=== PATIENT | male | born 1970 | race Caucasian/White ===

== ENCOUNTER 2019-11-11 10:08 | Outpatient (CLI) | payer OTHER, SELFPAY ==
--- NOTE | ~2019-11-11 | CT_ITS ---
EXAMINATION: CT abdomen pelvis w con INDICATION: Unspecified abdominal pain TECHNIQUE: Computed tomographic images of the abdomen and pelvis were obtained after the administrati on of 100 cc of Omnipaque 350 intravenous contrast. The dose-length product (DLP) was 1667.98 mGy-cm. Automated exposure control and iterative reconstruction technique were employed. COMPARISON: 01/26/2017 FINDINGS: The lung bases are clear. The heart size is normal. The gallbladder is surgically absent. T here is nodularity of the liver surface. The spleen, pancreas, and adrenal glands are normal. There i s a 6 mm nonobstructing stone of the left kidney lower pole. The right kidney is unremarkable. Mild, chronic periportal lymphadenopathy is noted. There is no free intraperitoneal gas or evidence of keegan l obstruction. Colonic diverticulosis is present without evidence of diverticulitis. The appendix is normal. There is moderate lumbar spondylosis. There is a fat-containing umbilical hernia. IMPRESSION: 1. No CT correlate for the patient's symptoms. 2. Cirrhosis. 3. Chronic mild periportal lymphadenopathy, likely reactive. 4. Nonobstructing left nephrolithiasis. Reviewed, dictated and finalized at location B.
[2019-11-11 10:28] LABS: Estimated Glomerular Filt Rate > 60
== END 2019-11-11 10:09 | disposition home or self-care (01) ==
PROVIDERS: PCP Family Medicine; Visit Provider Family Medicine
DX: R10.9 Unspecified abdominal pain (principal); K74.60 Unspecified cirrhosis of liver; R59.0 Localized enlarged lymph nodes; N20.0 Calculus of kidney
CPT/HCPCS: 74177; Q9967

== ENCOUNTER → 2020-07-17 04:01 | Outpatient (CLI) | payer OTHER, SELFPAY ==
[2020-07-17 20:06] LABS: SARS-CoV-2 RNA PCR Negative
== END ==
PROVIDERS: PCP Family Medicine; Visit Provider Internal Medicine Gastroenterology
DX: Z01.812 Encounter for preprocedural laboratory examination (principal); Z20.822 Contact with and (suspected) exposure to COVID-19
CPT/HCPCS: C9803; U0003; U0005

== ENCOUNTER 2020-07-20 01:59 | Day surgery (SDC) | payer OTHER, SELFPAY ==
[2020-07-12 12:08] VITALS: BMI 48.6
[2020-07-20 12:02] VITALS: BP 141/79; PULSE 65; RESP 17; TEMP 36.8; O2SAT 100; BMI 49.4
[2020-07-20] MEDS: LACTATED RINGERS 1,000 ML 150 ML IV CONT (12:16)
--- NOTE | 2020-07-20 12:22 | WPDANESEPPF ---
Anes - Initial Pre Proc Eval Procedure: Operation Date: 07/20/20 13:00 Proposed Procedures p Esophagogastroduodenoscopy - Boris Bennett MD Date/Time: 07/20/20 12:22 Surgeon: Boris Bennett MD Pre Op Diagnosis: cirrhosis Patient Data Age: 49 Gender: M Height: 6 ft 2 in Weight: 174.4 kg Last Vital Signs Temp 98.2 F 07/20/20 12:02 Pulse 65 07/20/20 12:02 Resp 17 07/20/20 12:02 BP 141/79 H 07/20/20 12:02 Pulse Ox 100 07/20/20 12:02 Allergies Allergy/AdvReac Type Severity Reaction Status Date / Time guaifenesin AdvReac Unknown Unknown Verified 07/20/20 12:00 pseudoephedrine AdvReac Unknown Unknown Verified 07/20/20 12:00 Home Medications Medication Instructions Recorded Confirmed Type omeprazole magnesium 20 mg 20 mg PO DAILY 12/02/19 07/20/20 History tablet,delayed release valsartan 320 See Rx Instructions .ROUTE 01/05/20 07/20/20 Rx mg-hydrochlorothiazide 12.5 mg .COMPLEX #90 tablet tablet Patient hx anesthesia problems: none Family hx anesthesia problems: none PMFSH Past Medical History Medical History Abdominal pain Cirrhosis Colon cancer screening Decreased libido Hypertension Lipid screening CRAWLEY (nonalcoholic steatohepatitis) Obesity, morbid, BMI 40.0-49.9 Screening for prostate cancer Thrombocytopenia Family History Family History Father Hypertension Family history of diabetes mellitus in first degree relative Mother Family history of thyroid disease Social History Social History (Updated 05/31/20 @ 09:23 by Spring Demarco CMA) Smoking status: Never smoker Alcohol intake: current Drinks per week: 1 Alcohol use details: socially Substance use: never Living arrangements: with family Spiritual care concerns: No Anes - Eval Final PreProcedure Day of Procedure 07/20/20 12:22 Patient weight: super morbidly obese Heart: regular rate and rhythm Lungs: clear to auscultation Airway: Mallampati scale class III Neurological: alert and oriented Last oral intake: >/= 8 hours ASA classification: IV Emergent: no Anesthetic plan: proceed Anesthesia type and monitoring: general GIVS and standard monitoring Informed Consent: The patient's anesthetic plan and its attendant risks and benefits were discussed with the patient/family/POA. Questions were solicited and answers provided to the satisfaction of the patient/family/POA.
--- NOTE | 2020-07-20 12:45 | PM.HPGS ---
History of Present Illness History of Present Illness Consent: Risks, benefits, and alternatives have been discussed and questions answered. Patient agrees to proceed with procedure. Chief complaint: cirrhosis Narrative: Vinay Chawla is a 49 year old male with crawley cirrhosis, here for egd to assess if EV, PHG, etc Review of Systems Constitutional: Constitutional: Denies headache(s) and Denies weakness Eyes: Eyes: Denies blurry vision ENT: Reports Normal hearing present, Denies headache(s) and Denies neck pain Cardiovascular: Cardiovascular: Denies chest pain and Denies dyspnea Respiratory: Respiratory: Denies dyspnea Gastrointestinal: Gastrointestinal: Reports no additional gastrointestinal complaints Genitourinary: Genitourinary: Denies dysuria Musculoskeletal: Musculoskeletal: Denies neck pain Integumentary/Breasts: Skin/Breast: Denies dry skin Neurologic: Reports Normal hearing present, Denies headache(s) and Denies weakness Psychiatric: Psychiatric: Denies anxiety Endocrine: Endocrine: Denies change in body appearance Hematologic/Lymphatic: Hematologic/Lymphatic: Denies easy bleeding Allergic/Immunologic: Allergic/Immunologic: Denies urticaria [facility] Past Medical History Medical History Abdominal pain Cirrhosis Colon cancer screening Decreased libido Hypertension Lipid screening CRAWLEY (nonalcoholic steatohepatitis) Obesity, morbid, BMI 40.0-49.9 Screening for prostate cancer Thrombocytopenia Family History Family History Father Hypertension Family history of diabetes mellitus in first degree relative Mother Family history of thyroid disease Social History Social History (Updated 05/31/20 @ 09:23 by Spring Demarco CMA) Smoking status: Never smoker Alcohol intake: current Drinks per week: 1 Alcohol use details: socially Substance use: never Living arrangements: with family Spiritual care concerns: No Meds Home Medications and Allergies Home Medications Medication Instructions Recorded Confirmed Type omeprazole magnesium 20 mg 20 mg PO DAILY 12/02/19 07/20/20 History tablet,delayed release valsartan 320 See Rx Instructions .ROUTE 01/05/20 07/20/20 Rx mg-hydrochlorothiazide 12.5 mg .COMPLEX #90 tablet tablet Allergies Allergy/AdvReac Type Severity Reaction Status Date / Time guaifenesin AdvReac Unknown Unknown Verified 07/20/20 12:00 pseudoephedrine AdvReac Unknown Unknown Verified 07/20/20 12:00 Vital Signs Vital Signs - 24 hr 07/20/20 12:02 Temperature 98.2 F Pulse Rate 65 Respiratory Rate 17 Blood Pressure 141/79 H Pulse Oximetry 100 Exam Const: General: comfortable and no acute distress HENMT: General nose exam: Normal nares present Eyes: General: appearance normal, both eyes and all related structures Neck: Neck: no JVD Resp: Auscultation: clear to auscultation bilaterally Cardio: Rate: regular rate Rhythm: regular rhythm GI: Inspection: non-distended GI Palp: Yes Soft to palpation Skin: General skin exam: normal color Neuro: General: gait normal Speech: normal speech Extrem: General: normal to inspection Psych: Mental Status: mental status grossly normal Assessment and Plan Assessment and plan (1) Cirrhosis: Qualifiers: Hepatic cirrhosis type: unspecified hepatic cirrhosis Ascites presence: without ascites Qualified Code(s): K74.60 - Unspecified cirrhosis of liver Code(s): K74.60 - Unspecified cirrhosis of liver Status: Acute Assessment and Plan: egd (2) CRAWLEY (nonalcoholic steatohepatitis): Code(s): K75.81 - Nonalcoholic steatohepatitis (CRAWLEY) Status: Acute
[2020-07-20 12:56] VITALS: BP 93/56; PULSE 63; RESP 15; O2SAT 97
[2020-07-20 13:06] VITALS: BP 117/60; PULSE 65; RESP 17; O2SAT 98
[2020-07-20 13:16] VITALS: BP 119/51; PULSE 66; RESP 18; O2SAT 95
== END 2020-07-20 13:33 | disposition home or self-care (01) ==
PROVIDERS: PCP Family Medicine; Visit Provider Internal Medicine Gastroenterology
PROC: 0DJ08ZZ Inspection of Upper Intestinal Tract, Via Natural or Artificial Opening Endoscopic (ICD-10-PCS; CPT 43235; principal; 2020-07-20 13:00)
DX: K74.60 Unspecified cirrhosis of liver (principal); I85.10 Secondary esophageal varices without bleeding; I10 Essential (primary) hypertension; K75.81 Nonalcoholic steatohepatitis (NASH); E66.01 Morbid (severe) obesity due to excess calories; Z68.42 Body mass index [BMI] 45.0-49.9, adult
CPT/HCPCS: 43235; C9803; J2001; J2704; J7120; U0003; U0005

== ENCOUNTER 2020-07-21 09:14 | Emergency (ER) | payer OTHER, SELFPAY ==
--- NOTE | ~2020-07-21 | CT_ITS ---
EXAMINATION: CTA BRAIN/CAROTID DATE: 07/21/2020 11:01 INDICATION: Dizziness and right arm tingling TECHNIQUE: Computed tomographic angiography (CTA) of the head and neck was performed with 100 mL Omni paque-350 intravenous contrast. Multiplanar reconstructions and maximum intensity projection 3D-recon structions of the carotid arteries and of the intracranial arteries were created by the technologist on a separate workstation. Precontrast CT of the head was also obtained. Automated exposure control and iterative reconstruction technique were employed.The dose-length product was 1853.32 mGy-cm. COMPARISON: None. FINDINGS: Carotid arteries: There is 0% stenosis of the right carotid bulb relative to normal distal artery lumen diameter (NASCE T criteria). There is 0% stenosis of the left carotid bulb relative to normal distal artery lumen baldo meter. Cervical soft tissues are unremarkable. Visualized apices of lungs are clear. Cervical spine i s unremarkable. Head: No acute intracranial hemorrhage, acute infarction or abnormal extra axial fluid collection. Ventricl es are normal and symmetric. No mass/mass effect. The orbits, paranasal sinuses and mastoid air cells are normal. No abnormally enhancing brain lesions. Intracranial arteries There is no hemodynamically significant stenosis in the vertebral, basilar and internal carotid arter ies. Vertebral arteries are codominant. There are no aneurysms identified. The left A1 segment is pat ent. No definite patent right A1 segment with flow to the right anterior cerebral artery supplied via the left A1 segment and a patent anterior communicating artery. Both P1 segments are patent. The rig ht P1 segment is smaller than the left with collateral supply to the right posterior cerebral artery also supplied via a patent right posterior communicating artery. Cerebral arterial arborization appea rs symmetric. IMPRESSION: 1. 0% stenosis of the right carotid bulb relative to normal distal artery lumen diameter (NASCET crit eria). 2. 0% stenosis of the left carotid bulb relative to normal distal artery lumen diameter. 3. Normal variation to the [place] of [place] with no aneurysm or hemodynamically significant stenosis to the intracranial cerebral arteries. Reviewed, dictated and finalized at location A. IMPRESSION: 1. 0% stenosis of the right carotid bulb relative to normal distal artery lumen diameter (NASCET criteria). 2. 0% stenosis of the left carotid bulb relative to normal distal artery lumen diameter. 3. Normal variation to the [place] with no aneurysm or hemodynamically significant stenosis to the intracranial cerebral arteries.
[2020-07-21 09:19] VITALS: BP 167/86; PULSE 75; RESP 20; TEMP 36.6; O2SAT 99
--- NOTE | 2020-07-21 09:27 | ECG_ITS ---
Measurements Intervals [place] Rate: 65 P: 8 IA: 201 QRS: 28 QRSD: 111 T: 64 QT: 437 QTc: 455 Interpretive Statements SINUS RHYTHM INTRAVENTRICULAR CONDUCTION DELAY BORDERLINE ST-T WAVE ABNORMALITY- HIGH LATERAL LEADS BASELINE ARTIFACT- II, III, AVR, AVF, V2-V6 BORDERLINE ECG Electronically Signed On 07-21-2020 12:06:10 CDT by Wood Larkin D.O.
[2020-07-21 10:00] LABS: Basophils Absolute Auto 0.1 K/mm3 (0.0-0.1); Eosinophils Absolute Auto 0.2 K/mm3 (0-0.3); Eosinophils Percent Auto 2.6 % (0-4.4); Hematocrit 43.4 % (42.0-52.0); Hemoglobin 15.2 g/dL (14.0-18.0); Immature Granulocyte Absolute 0.02 K/mm3 (0.00-0.031); Immature Granulocyte Percent A 0.3 % (0-0.5); Lymphocytes Absolute Auto 1.58 K/mm3 (0.9-3.2); Lymphocytes Percent Auto 23.2 % (18.3-44.2); Mean Corpuscular Volume 97.1 fl (80-100); Mean Platelet Volume 12.2 fl (7.4-10.4); Monocytes Absolute Auto 1.1 K/mm3 (0.1-0.6); Monocytes Percent Auto 16.1 % (2.6-8.5); Neutrophils Absolute Auto 3.9 K/mm3 (1.3-6.7); Neutrophils Percent Auto 56.8 % (45.5-73.1); Platelet Count Result 109 k/mm3 (150-375); Red Blood Count 4.47 M/mm3 (4.6-6.20); Red Cell Distribution Width 13.6 % (11.5-14.5); White Blood Count 6.8 K/mm3 (4.5-10.0)
--- NOTE | 2020-07-21 10:05 | PC.NURSE ---
Pt resting on cart, non-labored respirations, c/o charley horse pain in L calf this am (denies trauma, denies hx blood clots), then when he stood up felt unsteady and dizzy, denies N/V, denies falls, denies hx vertigo. Also reports RUE numbness improved. BLE soft to touch and appear equal in size, pt is wearing compression stockings
[2020-07-21 10:09] LABS: Anion Gap 5 mmol/L (8-16); Blood Urea Nitrogen 12 mg/dL (9-20); Calcium 9.2 mg/dL (8.4-10.2); Carbon Dioxide 28 mmol/L (22-30); Chloride 105 mmol/L (98-107); Estimated CRCL calculation 184 ml/min; Estimated Glomerular Filt Rate > 60; Glucose 105 mg/dL (75-110); Potassium 3.4 mmol/L (3.4-5.0); Sodium 138 mmol/L (137-145)
[2020-07-21 11:02] LABS: Alanine Aminotransferase 44 U/L (4-50); Albumin Level 3.9 g/dL (3.5-5.1); Alkaline Phosphatase 80 U/L (38-126); Aspartate Amino Transferase 53 U/L (17-59); Bilirubin,Total 0.9 mg/dL (0.2-1.3); Lipase 197 U/L (23-300)
[2020-07-21] MEDS: SODIUM CHLORIDE 0.9% IV 1,000 ML 999 ML IV CONT (11:05)
[2020-07-21] MEDS: MECLIZINE HCL 25 MG TABLET PO (11:06)
[2020-07-21] MEDS: FAMOTIDINE 20 MG/2 ML VIAL IV PUSH (11:06)
[2020-07-21 11:07] VITALS: BP 168/89; PULSE 70; RESP 18; O2SAT 97
--- NOTE | 2020-07-21 12:09 | PC.NURSE ---
Pt tolerated ROAD test, ambulated steady gait, denies dizziness/pain/N/V.
--- NOTE | 2020-07-21 12:24 | ED.GENADULT ---
HPI - General Adult General Chief complaint: Dizziness Stated complaint: dizzy, tingling right arm Time Seen by Provider: 07/21/20 10:04 Source: patient and RN notes reviewed Mode of arrival: ambulatory Limitations: no limitations History of Present Illness HPI narrative: Patient is a 49-year-old male who presents with dizziness that occurred this morning upon waking that occurs with his sitting and standing and resolves with lying flat in position patient denies any similar occurrence in the past injury or trauma noted some tingling in the right arm. Patient presents in no distress has not taken anything for his symptoms. Patient did have endoscopic he for esophageal varices given he has history of fatty liver and is developing cirrhosis. Patient denies URI symptoms Related Data Home Medications Medication Instructions Recorded Confirmed omeprazole magnesium 20 mg 20 mg PO DAILY 12/02/19 07/20/20 tablet,delayed release Allergies Allergy/AdvReac Type Severity Reaction Status Date / Time guaifenesin AdvReac Unknown Unknown Verified 07/20/20 12:00 pseudoephedrine AdvReac Unknown Unknown Verified 07/20/20 12:00 Review of Systems Review of Systems: All systems reviewed & are unremarkable except as noted in HPI and below PMFSH Past Medical History Medical History Abdominal pain Cirrhosis Colon cancer screening Decreased libido Hypertension Lipid screening CRAWLEY (nonalcoholic steatohepatitis) Obesity, morbid, BMI 40.0-49.9 Screening for prostate cancer Thrombocytopenia Family History Family History Father Hypertension Family history of diabetes mellitus in first degree relative Mother Family history of thyroid disease Social History Social History Smoking status: Never smoker Alcohol intake: current Drinks per week: 1 Substance use: never Spiritual care concerns: No Exam Narrative: Exam Narrative: GENERAL: Well-appearing, obese, and in no acute distress. HEAD: Normocephalic, atraumatic. EYES: PERRLA and EOMI. ENT: Nares clear, no rhinorrhea or epistaxis. Mucous membranes moist. NECK: Supple. No adenopathy or masses. No carotid bruits or JVD CHEST: Clear to auscultation. No respiratory distress. No wheezes rales or rhonchi HEART: Regular rate and rhythm. No murmur heard. Normal peripheral pulses. ABDOMEN: Soft, nontender, nondistended EXTREMITIES: Normal range of motion. No edema. SKIN: Warm, dry, no rash. NEURO: No focal deficits. Alert and oriented x3. Cranial nerves II through XII grossly intact. Cerebellar intact. Normal speech normal gait. No pronator drift. Motor and sensory intact and symmetrical in the extremities. No facial asymmetry. 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 Course Course Emergency Course: Patient in the room no distress his symptoms have resolved at this time resting comfortably will be discharged home with outpatient follow-up is felt appropriate for outpatient reevaluation ABCs and vital signs intact and stable Vital Signs Vital signs: Vital Signs Temperature 97.8 F 07/21/20 09:19 Pulse Rate 75 07/21/20 09:19 Respiratory Rate 20 07/21/20 09:19 Blood Pressure 167/86 H 07/21/20 09:19 Pulse Oximetry 99 07/21/20 09:19 Temperature 97.8 F 07/21/20 09:19 Pulse Rate 70 07/21/20 11:07 Respiratory Rate 18 07/21/20 11:07 Blood Pressure 168/89 H 07/21/20 11:07 Pulse Oximetry 97 07/21/20 11:07 Medical Decision Making MDM Narrative Medical decision making narrative: Patients headache was not sudden or maximal in onset. There are o focal neurological deficits on exam. Subarachnoid hemorrhage is felt to be unlikey at this time. There is no history of fever, and neck is supple without meningismus, making meningitis unlikely. No traumatic history or signs o
[2020-07-21 12:26] VITALS: BP 150/79; PULSE 68; RESP 20; O2SAT 98
== END 2020-07-21 12:30 | disposition home or self-care (01) ==
PROVIDERS: Emergency Medicine Emergency Medical Services; Emergency Provider Emergency Medicine; PCP Family Medicine
DX: R42 Dizziness and giddiness (principal); K74.60 Unspecified cirrhosis of liver; I10 Essential (primary) hypertension; K75.81 Nonalcoholic steatohepatitis (NASH); E66.01 Morbid (severe) obesity due to excess calories; Z68.42 Body mass index [BMI] 45.0-49.9, adult; I45.9 Conduction disorder, unspecified; R94.31 Abnormal electrocardiogram [ECG] [EKG]
CPT/HCPCS: 36415; 70496; 70498; 80048; 80076; 83690; 85025; 93005; 96361; 96374; 99284; A9270; J7030; Q9967

== ENCOUNTER → 2021-01-01 10:46 | Outpatient (CLI) | payer OTHER, SELFPAY ==
--- NOTE | ~2021-01-01 | US_ITS ---
EXAMINATION: US right upper quadrant DATE: 01/01/2021 11:14 INDICATION: Unspecified cirrhosis of the liver TECHNIQUE: Multiple grayscale and Doppler ultrasound images of the abdomen were obtained. COMPARISON: 06/08/2015 FINDINGS: The head and body of the pancreas are normal. The pancreatic tail is obscured by bowel gas. The liver demonstrates increased echogenicity, heterogenous echotexture, and decreased through trans mission. There is mild surface nodularity of the liver. Normal hepatopetal flow in the main portal ve in. The gallbladder is surgically absent. The normal common bile duct measures 4 mm. There was no son ographic Healy sign. IMPRESSION: 1. Mild surface nodularity of the liver, consistent with cirrhosis. Reviewed, dictated and finalized at location B.
== END ==
PROVIDERS: PCP Family Medicine; Visit Provider Internal Medicine Gastroenterology
DX: K74.60 Unspecified cirrhosis of liver (principal)
CPT/HCPCS: 76705

== ENCOUNTER → 2021-02-01 02:05 | Outpatient (CLI) | payer OTHER, SELFPAY ==
[2021-02-01 17:54] LABS: SARS-CoV-2 RNA PCR Negative
== END ==
PROVIDERS: PCP Family Medicine; Visit Provider Physician Assistant Medical
DX: R09.89 Other specified symptoms and signs involving the circulatory and respiratory systems (principal); Z20.822 Contact with and (suspected) exposure to COVID-19
CPT/HCPCS: C9803; U0003; U0005

== ENCOUNTER → 2021-06-13 07:50 | Outpatient (CLI) | payer OTHER, SELFPAY ==
--- NOTE | ~2021-06-13 | US_ITS ---
EXAMINATION: US right upper quadrant DATE: 06/13/2021 08:20 INDICATION: Unspecified cirrhosis of liver. TECHNIQUE: Multiple grayscale and Doppler ultrasound images of the abdomen were obtained. COMPARISON: CT abdomen and pelvis 11/11/2019, abdomen ultrasound 01/01/2021 FINDINGS: The visualized portions of the head and body of the pancreas are normal. The liver demonstr ates coarsened echotexture and surface nodularity, consistent with cirrhosis. There is normal flow in main portal vein. The gallbladder is absent. The common duct is normal and measures 4 mm. IMPRESSION: 1. Cirrhosis of the liver. Reviewed, dictated and finalized at location A. IMPRESSION: 1. Cirrhosis of the liver.
== END ==
PROVIDERS: PCP Family Medicine; Visit Provider Internal Medicine Gastroenterology
DX: K74.60 Unspecified cirrhosis of liver (principal)
CPT/HCPCS: 76705

== ENCOUNTER → 2021-06-13 07:52 | Outpatient (CLI) | payer OTHER, SELFPAY ==
--- NOTE | ~2021-06-13 | CT_ITS ---
EXAMINATION: CT abdomen pelvis w con EXAM DATE: 06/13/2021 08:39 INDICATION: R10.84 - Generalized abdominal pain . TECHNIQUE: Spiral CT of the abdomen and pelvis was performed following intravenous injection of 100 m L Omnipaque 350. Axial, coronal and sagittal images of the abdomen and pelvis were reviewed. The do se-length product (DLP) for this examination was 1287.81 mGy-cm. The exposure was tailored according to patient size (auto mA exposure control), and iterative reconstruction (ASIR) was used as addition al dose reduction technique. Comparison is made to prior examination from 11/11/2019. FINDINGS: There is a lymph node at the root of the mesentery measuring 2.6 x 2.2 cm, appears unchange d and therefore probably reactive. Liver has mildly nodular contour, probable cirrhosis. Portal vein is normal in size. Spleen is mildly enlarged in craniocaudal dimension at 15 cm. Adrenal glands and pancreas are unremarkable. Gallbladder is unremarkable. No biliary obstruction. Portal and splenic veins are patent. Kidneys enhance symmetrically. There is no hydronephrosis. There is a 3 mm left inferior calyceal stone. The prostate is unremarkable. The bladder is unremarkable. No pelvic lymp hadenopathy. There is mild scattered arteriosclerotic disease. There are no findings to suggest appendicitis. There is mild sigmoid colonic diverticulosis. There i s no adjacent inflammatory change to suggest diverticulitis. The stomach and small bowel are unrem arkable. There is expected amount of colonic stool. No free intraperitoneal gas. The heart is no rmal in size. There are no pericardial or pleural effusions. The lung bases are unremarkable. Ther e are no osteoblastic or osteolytic lesions identified. Moderate to severe lower lumbar spondylosis. IMPRESSION: 1. Mildly nodular liver contour, mild splenomegaly. Possible cirrhosis. 2. Stable enlarged mesenteric root lymph node likely reactive. 3. Left inferior calyceal stone. 4. No acute findings. Reviewed, dictated and finalized at location B.
[2021-06-13 08:27] LABS: Estimated Glomerular Filt Rate > 60
== END ==
PROVIDERS: PCP Family Medicine; Visit Provider Family Medicine
DX: R10.84 Generalized abdominal pain (principal); I25.10 Atherosclerotic heart disease of native coronary artery without angina pectoris; K75.81 Nonalcoholic steatohepatitis (NASH); N20.0 Calculus of kidney
CPT/HCPCS: 74177; Q9967

== ENCOUNTER 2021-08-23 00:39 | Day surgery (SDC) | payer OTHER, SELFPAY ==
[2021-08-12 14:35] VITALS: BMI 49.5
--- NOTE | 2021-08-22 12:42 | WPDANESEPPF ---
Anes - Initial Pre Proc Eval Procedure: Operation Date: 08/23/21 11:30 Proposed Procedures p Esophagogastroduodenoscopy & Screening Colonoscopy - Boris Bennett MD Date/Time: 08/22/21 12:42 Surgeon: Boris Bennett MD Pre Op Diagnosis: esophag. varices,epigastric pain,neoplasm screen Patient Data Age: 50 Gender: M Height: 1.88 m Weight: 175 kg Allergies Allergy/AdvReac Type Severity Reaction Status Date / Time guaifenesin AdvReac Unknown Unknown Verified 08/23/21 10:47 pseudoephedrine AdvReac Unknown Unknown Verified 08/23/21 10:47 Home Medications Medication Instructions Recorded Confirmed Type omeprazole magnesium 20 mg 20 mg PO DAILY 12/02/19 08/23/21 History tablet,delayed release (Prilosec OTC) propranolol 10 mg tablet 10 mg PO Q12H #60 tabs 12/13/20 08/23/21 Rx valsartan 320 See Rx Instructions .Route 12/31/20 08/23/21 Rx mg-hydrochlorothiazide 12.5 mg .COMPLEX #90 tabs tablet Patient hx anesthesia problems: none Family hx anesthesia problems: none Results Review: All pre-operative results and documents have been reviewed as part of the pre-operative evaluation. [facility] Past Medical History Medical History (Updated 08/22/21 @ 12:42 by Martin Trinh DO) Abdominal pain ADD (attention deficit disorder) BMI 50.0-59.9, adult Cirrhosis Colon cancer screening Decreased libido Epigastric pain Esophageal varices Hypertension Lipid screening CRAWLEY (nonalcoholic steatohepatitis) Obesity, morbid, BMI 40.0-49.9 SAIGE (obstructive sleep apnea) Screening for prostate cancer Thrombocytopenia Family History Family History Father Hypertension Family history of diabetes mellitus in first degree relative Mother Family history of thyroid disease Social History Social History Alcohol intake: current Drinks per week: 1 Alcohol use details: socially Substance use: never Living arrangements: with family Spiritual care concerns: No Anes - Eval Final PreProcedure Day of Procedure 08/22/21 12:42 Patient weight: morbidly obese Heart: regular rate and rhythm Lungs: clear to auscultation Airway: Mallampati scale class II Neurological: alert and oriented Last oral intake: >/= 8 hours ASA classification: IV Emergent: no Anesthetic plan: proceed Anesthesia type and monitoring: general GIVS and standard monitoring Results Review: All pre-operative results and documents have been reviewed as part of the pre-operative evaluation. Informed Consent: The patient's anesthetic plan and its attendant risks and benefits were discussed with the patient/family/POA. Questions were solicited and answers provided to the satisfaction of the patient/family/POA.
[2021-08-23 10:48] VITALS: BP 169/87; PULSE 81; RESP 18; TEMP 36.6; O2SAT 97; BMI 52.0
[2021-08-23] MEDS: LACTATED RINGERS 1,000 ML 150 ML IV CONT (11:05)
--- NOTE | 2021-08-23 11:20 | PM.HPGS ---
History of Present Illness History of Present Illness Consent: Risks, benefits, and alternatives have been discussed and questions answered. Patient agrees to proceed with procedure. Chief complaint: esophag. varices,epigastric pain,neoplasm screen Narrative: Vinay Chawla is a 50 year old male here for egd and colonoscopy, diagnosed with CRAWLEY cirrhosis, last EGD 2020 showed small EV now using low dose propranolol. His last colonoscopy 2015 only hemorrhoids. He has been having intermittent epigastric pain for last few months, CT scan a/p because severe pain, only showed cirrhosis and mild splenomegaly. He is taking omeprazole daily, using peptobismol as needed that will help. Review of Systems Constitutional: Constitutional: Denies headache(s) and Denies weakness Eyes: Eyes: Denies blurry vision ENT: Reports Normal hearing present, Denies headache(s) and Denies neck pain Cardiovascular: Cardiovascular: Denies chest pain and Denies dyspnea Respiratory: Respiratory: Denies dyspnea Gastrointestinal: Gastrointestinal: Reports no additional gastrointestinal complaints Genitourinary: Genitourinary: Denies dysuria Musculoskeletal: Musculoskeletal: Denies neck pain Integumentary/Breasts: Skin/Breast: Denies dry skin Neurologic: Reports Normal hearing present, Denies headache(s) and Denies weakness Psychiatric: Psychiatric: Denies anxiety Endocrine: Endocrine: Denies change in body appearance Hematologic/Lymphatic: Hematologic/Lymphatic: Denies easy bleeding Allergic/Immunologic: Allergic/Immunologic: Denies urticaria PMFSH Past Medical History Medical History (Updated 08/22/21 @ 12:42 by Martin Trinh DO) Abdominal pain ADD (attention deficit disorder) BMI 50.0-59.9, adult Cirrhosis Colon cancer screening Decreased libido Epigastric pain Esophageal varices Hypertension Lipid screening CRAWLEY (nonalcoholic steatohepatitis) Obesity, morbid, BMI 40.0-49.9 SAIGE (obstructive sleep apnea) Screening for prostate cancer Thrombocytopenia Family History Family History Father Hypertension Family history of diabetes mellitus in first degree relative Mother Family history of thyroid disease Social History Social History Alcohol intake: current Drinks per week: 1 Alcohol use details: socially Substance use: never Living arrangements: with family Spiritual care concerns: No Meds Home Medications and Allergies Home Medications Medication Instructions Recorded Confirmed Type omeprazole magnesium 20 mg 20 mg PO DAILY 12/02/19 08/23/21 History tablet,delayed release (Prilosec OTC) propranolol 10 mg tablet 10 mg PO Q12H #60 tabs 12/13/20 08/23/21 Rx valsartan 320 See Rx Instructions .Route 12/31/20 08/23/21 Rx mg-hydrochlorothiazide 12.5 mg .COMPLEX #90 tabs tablet Allergies Allergy/AdvReac Type Severity Reaction Status Date / Time guaifenesin AdvReac Unknown Unknown Verified 08/23/21 10:47 pseudoephedrine AdvReac Unknown Unknown Verified 08/23/21 10:47 Vital Signs Vital Signs - 24 hr 08/23/21 10:48 Temperature 98 F Pulse Rate 81 Respiratory Rate 18 Blood Pressure 169/87 H Pulse Oximetry 97 Oxygen Delivery Room Air Exam Const: General: comfortable and no acute distress HENMT: General nose exam: Normal nares present Eyes: General: appearance normal, both eyes and all related structures Neck: Neck: no JVD Resp: Auscultation: clear to auscultation bilaterally Cardio: Rate: regular rate Rhythm: regular rhythm GI: Inspection: non-distended GI Palp: Yes Soft to palpation Skin: General skin exam: normal color Neuro: General: gait normal Speech: normal speech Extrem: General: normal to inspection Psych: Mental Status: mental status grossly normal Assessment and Plan Assessment and plan (1) Epigastric pain:
--- NOTE | 2021-08-23 11:39 | SUR.OPER ---
EGD start 1130 end 1134, COLON start 1139 end 1150.
[2021-08-23 11:54] VITALS: BP 117/68; PULSE 72; RESP 22; O2SAT 98
[2021-08-23 12:04] VITALS: BP 126/84; PULSE 71; RESP 20; O2SAT 98
[2021-08-23 12:14] VITALS: BP 150/98; PULSE 70; RESP 20; O2SAT 98
== END 2021-08-23 12:31 | disposition home or self-care (01) ==
PROVIDERS: PCP Family Medicine; Visit Provider Internal Medicine Gastroenterology
PROC: 0DJ08ZZ Inspection of Upper Intestinal Tract, Via Natural or Artificial Opening Endoscopic (ICD-10-PCS; CPT 43235; principal; 2021-08-23 11:30)
DX: Z12.11 Encounter for screening for malignant neoplasm of colon (principal); D12.2 Benign neoplasm of ascending colon; K57.30 Diverticulosis of large intestine without perforation or abscess without bleeding; I85.10 Secondary esophageal varices without bleeding; K29.50 Unspecified chronic gastritis without bleeding; I10 Essential (primary) hypertension; K75.81 Nonalcoholic steatohepatitis (NASH); G47.33 Obstructive sleep apnea (adult) (pediatric); E66.01 Morbid (severe) obesity due to excess calories; Z68.43 Body mass index [BMI] 50.0-59.9, adult
CPT/HCPCS: 45385; 43239; 88305; J2704; J7120

== ENCOUNTER → 2021-11-19 08:03 | Outpatient (CLI) | payer OTHER, SELFPAY ==
--- NOTE | ~2021-11-19 | US_ITS ---
US right upper quadrant DATE: 11/19/2021 08:21 INDICATION: Cirrhosis. Status post cholecystectomy. TECHNIQUE: Real-time imaging of right upper quadrant, Doppler analysis COMPARISON: 06/13/2021 CT abdomen FINDINGS: There is surface nodularity of the liver consistent with cirrhosis. No apparent hepatic spa ce-occupying mass lesion is noted. The portal vein is patent, with normal directional flow. Status post cholecystectomy. The common bile duct measures 7 mm, within normal range. There is limited visualization of the pancreas due to interference from overlying bowel gas. IMPRESSION: Cirrhosis Status post cholecystectomy Suboptimal visualization of the pancreas Reviewed, dictated and finalized at [facility]. Reviewed, dictated and finalized at location B.
== END ==
PROVIDERS: PCP Internal Medicine Gastroenterology; Visit Provider Internal Medicine Gastroenterology
DX: K74.60 Unspecified cirrhosis of liver (principal); Z90.49 Acquired absence of other specified parts of digestive tract
CPT/HCPCS: 76705

== ENCOUNTER → 2022-06-09 08:09 | Outpatient (CLI) | payer OTHER, SELFPAY ==
--- NOTE | ~2022-06-09 | US_ITS ---
US right upper quadrant INDICATION: Fatty infiltration of the liver PROCEDURE: Realtime right upper abdominal ultrasound. COMPARISON: No prior studies for comparison. FINDINGS: The pancreas is normal without focal mass or pancreatic ductal dilation. Liver echotexture is increased, consistent with fatty infiltration. There is normal directional flow in the portal ve in. The gallbladder is normal without stones, gallbladder wall thickening or pericholecystic fluid. Comm on bile duct measures 4 mm. No sonographic Healy's sign. IMPRESSION: 1: Hepatic steatosis. Reviewed, dictated and finalized at location B. IMPRESSION: 1: Hepatic steatosis.
== END ==
PROVIDERS: PCP Family Medicine; Visit Provider Internal Medicine Gastroenterology
DX: K75.81 Nonalcoholic steatohepatitis (NASH) (principal)
CPT/HCPCS: 76705

== ENCOUNTER 2022-07-16 05:50 | Emergency (ER) | payer OTHER, SELFPAY ==
[2022-07-16] VITALS (18 sets, daily range): BP systolic 127–197; BP diastolic 85–156; PULSE 83–126; RESP 17–24; TEMP 36.9; O2SAT 92–98
--- NOTE | ~2022-07-16 | XR_ITS ---
EXAMINATION: XR knee LT 3V DATE: 07/16/2022 07:28 INDICATION: Left knee pain and swelling. TECHNIQUE: 3 views of left knee were obtained. COMPARISON: None. FINDINGS: Bone alignment is normal. No fracture. There is moderate osteoarthritis of medial and mata lofemoral compartments and mild osteoarthritis of lateral compartment. There is a small knee joint ef fusion. IMPRESSION: 1. Moderate left knee osteoarthritis. 2. Small left knee joint effusion. Reviewed, dictated and finalized at location A.
--- NOTE | ~2022-07-16 | US_ITS ---
Duplex Sonography of the left extremity: Indication: Pain Findings: Sagittal and transverse B-mode images as well as color-flow imaging were performed on the l eft femoral and popliteal veins. B-mode examination was done without and with compression in the tra nsverse plane. There is good visualization of the common femoral, proximal profunda femoral, superfi cial femoral, greater saphenous, and popliteal veins. Normal flow was seen on color-flow imaging. No rmal compressibility was demonstrated. Visualized left calf veins are also patent. Impression: No evidence of deep vein thrombosis involving the left lower extremity. Reviewed, dictated and finalized at location M. Impression: No evidence of deep vein thrombosis involving the left lower extremity.
--- NOTE | 2022-07-16 06:10 | PC.NURSE ---
Patient states that sitting on the bed with feet on floor is the best position for comfort.
--- NOTE | 2022-07-16 06:21 | ECG_ITS ---
Measurements Intervals [place] Rate: 95 P: [place]: 0 QRS: 30 QRSD: 96 T: 59 QT: 366 QTc: 461 Interpretive Statements ATRIAL FIBRILLATION BORDERLINE R WAVE PROGRESSION, ANTERIOR LEADS BORDERLINE ST-T WAVE ABNORMALITY- HIGH LATERAL LEADS BASELINE ARTIFACT- I, II, III, AVR, AVL, AVF ABNORMAL ECG COMPARED TO ECG 07/21/2020 09:32:53 ATRIAL FIBRILLATION NOW PRESENT Electronically Signed On 07-16-2022 6:46:26 CDT by Wood Larkin D.O.
--- NOTE | 2022-07-16 06:41 | PC.NURSE ---
Patient's heart rate was showing fluctuation from 80bpm to 140bpm and blood pressure was elevated. The patients skin also appears moist to diaphoretic. An EKG was done. Dr. Alejandra notified.
--- NOTE | 2022-07-16 07:15 | ED.LOWEXIN ---
HPI - Extremity Injury (Lower) General Chief Complaint: Extremity Injury, Lower Stated Complaint: LLE pain Time Seen by Provider: 07/16/22 06:03 History of Present Illness HPI Narrative: Pt presents with onset of left knee and posterior thigh pain for a couple of days. Pt denies injury. 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 Pt has never had anything like this before. Pt denies CP or SOB. Related Data Home Medications Medication Instructions Recorded Confirmed omeprazole magnesium 20 mg 20 mg PO DAILY 12/02/19 12/12/21 tablet,delayed release (Prilosec OTC) Allergies Allergy/AdvReac Type Severity Reaction Status Date / Time guaifenesin AdvReac Unknown Unknown Verified 06/26/22 08:33 pseudoephedrine AdvReac Unknown Unknown Verified 06/26/22 08:33 Review of Systems Review of Systems: All systems reviewed & are unremarkable except as noted in HPI and below PMFSH Past Medical History Medical History Abdominal pain ADD (attention deficit disorder) Adenomatous colon polyp BMI 50.0-59.9, adult Cirrhosis Colon cancer screening Decreased libido Epigastric pain Esophageal varices GERD (gastroesophageal reflux disease) Hypertension Lipid screening CRAWLEY (nonalcoholic steatohepatitis) Obesity, morbid, BMI 40.0-49.9 SAIGE (obstructive sleep apnea) Screening for prostate cancer Thrombocytopenia Family History Family History Father Hypertension Family history of diabetes mellitus in first degree relative Mother Family history of thyroid disease Social History Social History Smoking status: Never smoker Alcohol intake: current Drinks per week: 1 Alcohol use details: socially Substance use: never Living arrangements: with family Spiritual care concerns: No Exam Const: General: no acute distress Nutritional Appearance: well nourished Orientation/consciousness: patient oriented x3 Limitations: no limitations Eyes: Conjunctivae: conjunctivae normal EOM: EOMs intact bilaterally Direct Ophthalmoscopy: no photophobia Neck: Neck: normal visual inspection, no lymphadenopathy and no meningeal signs Resp: Effort & Inspection: normal respiratory effort Auscultation: clear to auscultation bilaterally Cardio: Rate: regular rate Rhythm: regular rhythm GI: GI Palp: Yes Soft to palpation Auscultation: normal bowel sounds Skin: General skin exam: normal color Wounds: no wounds Neuro: General: patient oriented x3, moves all extremities, no focal motor deficits and CN's II-XI intact bilaterally Cranial nerves: Yes Nystagmus not present Speech: normal speech Extrem: Other: tender posterior knee on left and into posterior thigh. no significant effusion or erythema to joint. Psych: Mental Status: mental status grossly normal Affect: normal affect Attitude: cooperative Course Vital Signs Vital signs: Vital Signs Temperature 98.5 F 07/16/22 05:54 Pulse Rate 83 07/16/22 05:54 Respiratory Rate 18 07/16/22 05:54 Blood Pressure 158/114 H 07/16/22 05:54 Pulse Oximetry 98 07/16/22 05:54 Oxygen Delivery Room Air 07/16/22 05:54 Temperature 98.5 F 07/16/22 05:54 Pulse Rate 95 07/16/22 08:11 Respiratory Rate 20 07/16/22 08:11 Blood Pressure 147/88 H 07/16/22 08:17 Pulse Oximetry 97 07/16/22 08:16 Oxygen Delivery Room Air 07/16/22 06:06 MDM - Extremity Injury (Lower) MDM Narrative Medical decision making narrative: Pt has non traumatic posterior left knee pain for a couple of days. Could certainly be a dvt so will need venous doppler. internal derangement possible though no injury history. Could be arthritis given pt size but seems unlikely given severity and acuity but will get x ray and give some pain medicine while await
[2022-07-16] MEDS: HYDROcodone/acetaminophen (*CRX) 5-325 MG TABLET 1 TAB PO (07:18)
== END 2022-07-16 08:22 | disposition home or self-care (01) ==
PROVIDERS: Emergency Provider Emergency Medicine; PCP Family Medicine
DX: M25.562 Pain in left knee (principal); I10 Essential (primary) hypertension
CPT/HCPCS: 73562; 93005; 93971; 99284; A9270

== ENCOUNTER 2022-12-14 06:15 | Inpatient (IN) | payer OTHER, SELFPAY ==
[2022-12-14] VITALS (51 sets, daily range): BP systolic 87–154; BP diastolic 46–120; PULSE 47–125; RESP 12–31; TEMP 36.1–36.9; O2SAT 96–100; BMI 49.7
--- NOTE | ~2022-12-14 | XR_ITS ---
Portable chest x-ray Comparison: 12/14/2022 Clinical History: Infiltrate Findings: There is hazy bilateral airspace disease with relative central distribution, most compatib le with moderate pulmonary edema. Probable minimal left pleural effusion. Cardiomediastinal silhouet te is stable. Bones and soft tissues are unremarkable. Impression: Moderate pulmonary edema pattern with minimal left pleural effusion. Correlate clinically for infecti on. Reviewed, dictated and finalized at [facility]. Impression: Moderate pulmonary edema pattern with minimal left pleural effusion. Correlate clinically for infection.
--- NOTE | ~2022-12-14 | XR_ITS ---
EXAMINATION: XR chest 1V portable DATE: 12/14/2022 06:43 INDICATION: Shortness of breath. Chest pain. TECHNIQUE: A single frontal view of the chest was obtained. COMPARISON: Chest 2 views 03/05/2014, CT abdomen and pelvis 06/13/2021 FINDINGS: The lung volumes are small. There are airspace opacities in all lung zones bilaterally. No pleural effusion or pneumothorax. The heart size is normal. IMPRESSION: 1. Small lung volumes with diffuse lung disease, consistent with pulmonary edema versus pneumonia. Reviewed, dictated and finalized at location [facility]. IMPRESSION: 1. Small lung volumes with diffuse lung disease, consistent with pulmonary albaro a versus pneumonia.
--- NOTE | 2022-12-14 06:23 | ECG_ITS ---
Measurements Intervals [place] Rate: 75 P: 98 MD: 179 QRS: 70 QRSD: 160 T: 220 QT: 399 QTc: 446 Interpretive Statements PROBABLE SINUS RHYTHM VERSUS ATRIAL FIBRILLATION WITH AV BLOCK LEFT BUNDLE BRANCH BLOCK MARKED ST ELEVATION, CONSIDER INJURY COMPARED TO ECG 07/16/2022 06:25:53 LEFT BUNDLE-BRANCH BLOCK NOW PRESENT Electronically Signed On 12-14-2022 13:05:13 CDT by Bryn Matthews M.D.
--- NOTE | 2022-12-14 06:29 | PC.NURSE ---
STEMI activated on patient.
[2022-12-14] MEDS: HEPARIN SODIUM 5,000 UNITS/ML VIAL 4000 UNITS IV PUSH (06:34)
[2022-12-14] MEDS: TICAGRELOR 90 MG TABLET 180 MG PO (06:34)
[2022-12-14 06:35] LABS: Basophils Absolute Auto 0.1 K/mm3 (0.0-0.1); Basophils Percent Auto 1.5 % (0.2-1.2); Eosinophils Absolute Auto 0.4 K/mm3 (0-0.3); Eosinophils Percent Auto 4.4 % (0-4.4); Hematocrit 36.5 % (42.0-52.0); Hemoglobin 11.4 g/dL (14.0-18.0); Immature Granulocyte Absolute 0.05 K/mm3 (0.00-0.031); Immature Granulocyte Percent A 0.5 % (0-0.5); Lymphocytes Absolute Auto 1.57 K/mm3 (0.9-3.2); Lymphocytes Percent Auto 16.4 % (18.3-44.2); Mean Corpuscular HGB Conc 31.2 g/dl (32-36); Mean Corpuscular Hemoglobin 31.1 pg (26-34); Mean Corpuscular Volume 99.5 fl (80-100); Mean Platelet Volume 11.6 fl (7.4-10.4); Monocytes Absolute Auto 0.9 K/mm3 (0.1-0.6); Neutrophils Absolute Auto 6.5 K/mm3 (1.3-6.7); Neutrophils Percent Auto 68.2 % (45.5-73.1); Platelet Count Result 202 k/mm3 (150-375); Red Blood Count 3.67 M/mm3 (4.6-6.20); White Blood Count 9.6 K/mm3 (4.5-10.0)
[2022-12-14 06:36] LABS: Alveolar/Arterial O2 Gradient 139.7 mmHg; Base Excess ABG -6.1 mEq/l (+/-2.0); Carboxyhemoglobin 0.4 % THb (0-2.0); Fractional Inspired Oxygen 40 %; HCO3 ABG 20.1 mEq/l (22.0-26.0); Methemoglobin ABG 0.3 %THb (0-1.5); Oxygen Content ABG 16.4 %vol (16.0-22.0); Oxygen Saturation ABG 96.8 % (95.0-100.0); Oxyhemoglobin 95.5 % THb (90.0-100.0); PCO2 ABG 41.9 mmHg (35.0-45.0); PO2 ABG 97.3 mmHg (80.0-100.0); PO2 FiO2 Ratio Arterial Blood 2.43 %; Reduced Hemoglobin 3.8 %THb (0-5.0); Total Hemoglobin 12.1 g/dL (12.0-18.0)
--- NOTE | 2022-12-14 06:41 | PC.NURSE ---
Patients arrives at bedside.
--- NOTE | 2022-12-14 06:42 | PC.NURSE ---
Patient able to answer short questions. Patient able to take PO brilinta with a sip of water.
--- NOTE | 2022-12-14 06:43 | ED.GENADULT ---
HPI - General Adult General Chief complaint: Shortness of Breath/Dyspnea Stated complaint: cp, sob History of Present Illness HPI narrative: Patient 52-year-old gentleman who presents the emergency department with chief complaint of chest pain and shortness of breath. Patient has history of Crawley A-fib has had multiple complicated medical conditions and multiple hospitalizations the patient presents to the ER after he developed chest pain this morning and severe shortness of breath. The patient has been having to use his CPAP almost continuously for the last 2 weeks the patient tonight was found by EMS to have a wide-complex rhythm concerning for acute ST elevation SC. Related Data Allergies Allergy/AdvReac Type Severity Reaction Status Date / Time ciprofloxacin Allergy Rash Verified 12/14/22 06:43 guaifenesin AdvReac Unknown Unknown Verified 12/14/22 06:43 pseudoephedrine AdvReac Unknown Unknown Verified 12/14/22 06:43 cefazolin [From Ancef] AdvReac Unknown Verified 12/14/22 06:43 Review of Systems Review of Systems: A 10 system review of systems was completed on the patient and is negative except for what is stated in the HPI. Nursing and ancillary documentation was reviewed. [facility] Past Medical History Medical History Abdominal pain ADD (attention deficit disorder) Adenomatous colon polyp BMI 50.0-59.9, adult Cirrhosis Colon cancer screening Decreased libido Epigastric pain Esophageal varices GERD (gastroesophageal reflux disease) Hypertension Lipid screening CRAWLEY (nonalcoholic steatohepatitis) Obesity, morbid, BMI 40.0-49.9 SAIGE (obstructive sleep apnea) Screening for prostate cancer Thrombocytopenia Family History Family History Father Hypertension Family history of diabetes mellitus in first degree relative Mother Family history of thyroid disease Social History Social History Smoking status: Never smoker Alcohol intake: former Drinks per week: 12 Alcohol use details: socially Substance use: never Living arrangements: with family Spiritual care concerns: No Exam Narrative: GENERAL: Ill-appearing obese, HEAD: Normocephalic, atraumatic. EYES: PERRLA and EOMI. ENT: Nares clear, no rhinorrhea or epistaxis. Mucous membranes moist. NECK: Supple. CHEST: Clear to auscultation. No respiratory distress. While on BiPAP HEART: Regular rate and rhythm. No murmur heard. Normal peripheral pulses. ABDOMEN: Soft, nontender, nondistended, normal active bowel sounds. EXTREMITIES: Normal range of motion. No edema. SKIN: Warm, dry, no rash. NEURO: No focal deficits. Alert and oriented x3. PSYCH: Normal mood and affect. Course Vital Signs Vital signs: Vital Signs Temperature 36.8 C 12/14/22 06:10 Pulse Rate 73 12/14/22 06:10 Respiratory Rate 27 H 12/14/22 06:10 Blood Pressure 154/120 H 12/14/22 06:10 Pulse Oximetry 98 12/14/22 06:10 Oxygen Delivery CPAP 12/14/22 06:10 Temperature 36.8 C 12/14/22 06:10 Pulse Rate 106 H 12/14/22 06:31 Respiratory Rate 17 12/14/22 06:31 Blood Pressure 111/64 12/14/22 06:31 Pulse Oximetry 97 12/14/22 06:31 Oxygen Delivery BiPAP 12/14/22 06:22 Medical Decision Making [facility] Narrative Medical decision making narrative: Differential diagnosis includes ACS, pulmonary edema, renal failure, hyperkalemia EKG showed a wide-complex rhythm With inferior elevations concerning for possible acute SC EKG was discussed with Dr. Cook of the cardiology service who is on-call for interventional. Given the patient is having chest pain decision was made to take the patient emergently to the [facility] for evaluation Vital Signs Vital Signs: Vital Signs Temperature 36.8 C 12/14/22 06:10 Pulse Rate 73 12/14/22 06:10 Respiratory
[2022-12-14 06:44] LABS: Lactic Acid Reflex 2.6 mmol/L (0.7-2.0)
[2022-12-14 06:46] LABS: Alanine Aminotransferase 18 U/L (6-50); Alkaline Phosphatase 117 U/L (38-126); Anion Gap 9 mmol/L (8-16); Aspartate Amino Transferase 37 U/L (17-59); Blood Urea Nitrogen 19 mg/dL (9-20); Calcium 8.2 mg/dL (8.4-10.2); Carbon Dioxide 23 mmol/L (22-30); Chloride 99 mmol/L (98-107); Estimated CRCL calculation 90 ml/min; Estimated Glomerular Filt Rate 49; Glucose 122 mg/dL (65-110); INR 2.3; Lipase 67 U/L (23-300); Potassium 3.7 mmol/L (3.4-5.0); Prothrombin Time 26.6 Seconds (11.1-14.7); Sodium 131 mmol/L (137-145)
[2022-12-14 06:47] LABS: Partial Thromboplastin Time 42.2 SECONDS (22.3-36.8)
--- NOTE | 2022-12-14 06:54 | PC.NURSE ---
Patient communicating and conversing with at bedside. Patient remains 100% on bipap.
[2022-12-14 06:56] LABS: NT Pro B Type Natriuretic Pept 6520 pg/mL (19.9-100); Troponin I 0.016 ng/mL (0.000-0.034)
--- NOTE | 2022-12-14 07:20 | PM.IMHP ---
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 Patient presented to [facility] Emergency Room via EMS on 12/14/2022 with complaints of chest pain that started about 90 minutes prior to arrival. His symptoms were associated with worsening shortness of breath. He has somewhat limited mobility due to morbid obesity and has baseline dyspnea on exertion. He denied any palpitations, dizziness or syncope. EKG on my personal interpretation showed Wide complex rhythm with left bundle branch morphology. Previous EKG from June this year showed sinus rhythm with no left bundle branch block. Due to presentation with chest pain and presumably new left bundle branch block, cardiac catheterization lab was activated. chest x-ray showed ?Small lung volumes with diffuse lung disease, consistent with pulmonary edema versus pneumonia. INR at presentation 2.2. Patient underwent cardiac catheterization through right radial access. Coronary angiogram , which was suboptimal image quality due to morbid obesity, showed about 50% stenosis in the mid LAD and proximal segment of the major diagonal branch. No other significant obstructive disease was seen. No PCI was performed. Left ventriculogram was not performed. LVEDP was elevated 25 mmHg. At the completion of the catheterization, patient denied any ongoing symptoms of chest pain. Review of Systems Review of Systems: General: Negative for fever, chills, fatigue Psychological: Negative for anxiety, depression Ophthalmic: negative for loss of vision ENT: Negative for epistaxis, headaches Allergy and immunology: Negative for hives, nasal congestion Hematologic and lymphatic: Negative for overt bleeding problems Endocrine: Negative for hot flashes, palpitations Respiratory: positive for worsening dyspnea Cardiovascular: positive for chest pain, shortness of breath Gastrointestinal: Negative for abdominal pain, nausea, vomiting, hematochezia Musculoskeletal: Negative for myalgia, joint pains Neurological: Negative for weakness Dermatological: positive for skin the skin discoloration in the legs PMFSH Past Medical History Medical History Abdominal pain ADD (attention deficit disorder) Adenomatous colon polyp BMI 50.0-59.9, adult Cirrhosis Colon cancer screening Decreased libido Epigastric pain Esophageal varices GERD (gastroesophageal reflux disease) Hypertension Lipid screening CRAWLEY (nonalcoholic steatohepatitis) Obesity, morbid, BMI 40.0-49.9 SAIGE (obstructive sleep apnea) Screening for prostate cancer Thrombocytopenia Family History Family History Father Hypertension Family history of diabetes mellitus in first degree relative Mother Family history of thyroid disease Social History Social History Smoking status: Never smoker Alcohol intake: former Drinks per week: 12 Alcohol use details: socially Substance use: never Living arrangements: with family Spiritual care concerns: No Meds Home Medications and Allergies Home Medications Medication Instructions Recorded Confirmed Type hydrocodone 5 mg-acetaminophen 325 1 tablet PO Q6H PRN pain #10 tabs 07/16/22 Rx mg tablet L.acidophilus-L.bulgar-B.bifid-S.thermoph 1 tab PO DAILY #14 tabs 11/14/22 Rx 1 billion cell-250 mg tablet (Shelley-Bid) Nonformulary Drug 1 ea PO BID ##0 11/14/22 Rx acetaminophen 325 mg tablet (Mapap 650 mg PO TID PRN Mild Pain (1-3) 11/14/22 Rx (acetaminophe
--- NOTE | 2022-12-14 08:15 | ADMGEN ---
This patient, Vinay Chawla, was admitted to Intensive Care Unit-6. Patient/family oriented to hospital policies and general routines including ID bracelet, bed and alarms, visiting hours, pain management, procedures, bathroom and other care routines, personal items, smoking policy, room service/diet, and visiting hours. Information on how to activate the Rapid Response Team has been discussed. Patient/Family are encouraged to report perceived risks to care and to ask questions if they do not understand what they are told or what they should do.
--- NOTE | 2022-12-14 08:17 | WPDCARDPROC ---
Cardiac Cath Procedure Note Date of procedure:: 12/14/22 Performing physician:: Bryn Matthews MD Procedure Procedure performed:: LEFT HEART CATHETERIZATION AND CORONARY ANGIOGRAM REPORT DATE OF PROCEDURE: 12/14/2022 INDICATION FOR PROCEDURE: chest pain, presumed new left bundle branch block BRIEF CLINICAL HISTORY: 52-year-old male with atrial fibrillation on chronic anticoagulation with warfarin,? 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 Patient presented to [facility] Emergency Room via EMS on 12/14/2022 with complaints of chest pain that started about 90 minutes prior to arrival.? His symptoms were associated with worsening shortness of breath.? He has somewhat limited mobility due to morbid obesity and has baseline dyspnea on exertion.? He denied any palpitations, dizziness or syncope.? EKG on my personal interpretation showed? Wide complex rhythm with left bundle branch morphology.? Previous EKG from June this year showed sinus rhythm with no left bundle branch block.? Due to presentation with chest pain and presumably new left bundle branch block, cardiac catheterization lab was activated. INR at presentation 2.2. PROCEDURES PERFORMED: 1. Left heart catheterization- Selective left and right coronary angiogram; LV pressure measurement and hemodynamic assessment 2. Moderate sedation-CPT code 85106 MODERATE SEDATION: Midazolam 1 mg; fentanyl 25 mcg; Start time 0733 , Stop time 0754 ; Total [id number] time 21 minutes; Aileen Arzate RN was trained observer for moderate sedation. ACCESS SITE: Right radial femoral artery PROCEDURE NOTE: patient was emergently brought to catheterization lab and prepped and draped in a usual sterile manner. After local anesthesia with lidocaine, right radial artery access was taken with micropuncture needle followed by insertion of radial sheath. Patient had already received 4000 units of heparin in the ER in addition to aspirin and ticagrelor. He was given 2.5 mg of verapamil and 100 mcg of nitroglycerin as a cocktail for radial access. Selective left coronary angiogram was performed using 5 [place] Saad catheter. There was difficulty in engaging the RCA therefore, RCA angiogram was performed using 5 [place] JR4 catheter. The same catheter was advanced the LV cavity, and LV pressure measurement was performed followed by gradient across aortic valve on the pullback. Finally, after completion of cardiac catheterization, a daily band was placed for local hemostasis. There were no immediate procedure related complications. Patient was chest pain-free after completion of the procedure. FINDINGS: LEFT MAIN CORONARY: medium caliber vessel, no focal stenosis. Trifurcates into LAD, ramus intermedius and left circumflex branches. LEFT ANTERIOR DESCENDING ARTERY: Medium caliber vessel, mild plaque in the proximal segment. There is about 50% stenosis in the mid segment. The vessel tapers distally reaches the apex. . Mild plaque is seen in the proximal segment of major diagonal branch. Image quality is suboptimal due to morbid obesity. RAMUS INTERMEDIUS: Medium caliber common of focal stenosis. LEFT CIRCUMFLEX ARTERY: Small caliber, non dominant, gives rise to diminutive OM 1 branch, no focal stenosis. RIGHT CORONARY ARTERY: A large caliber vessel, dominant, minor plaque in the mid segment, no significant focal stenosis. LEFT VENTRICULOGRAM: Not performed. LV pressure measurement showed elevated LVEDP at 25 mmHg. HEMODYNAMIC ASSESSMENT: Opening pressure 101/76 mmHg , closing pressure 105/75 mmHg , LVEDP 25 , no significant gradient across aortic valve on the pullback of pigtail catheter. CONCLUSIONS: 1. Approximately 50% stenosis mid LAD and major diagonal branch. No other significant focal stenosis. Right dominant co
[2022-12-14] MEDS: FUROSEMIDE INJ 40 MG/4 ML VIAL IV PUSH (08:44)
[2022-12-14 09:33] LABS: Reflex Lactic Acid Yes or No Add Lactic
[2022-12-14 10:01] LABS: NT Pro B Type Natriuretic Pept 5510 pg/mL (19.9-100)
[2022-12-14 10:07] LABS: Troponin I 0.309 ng/mL (0.000-0.034)
--- NOTE | 2022-12-14 12:19 | WPDCNINT ---
Assessment and Plan Assessment and plan (1) Chest pain: Code(s): R07.9 - Chest pain, unspecified Status: Acute Assessment and Plan: Patient presented with chest pain 60-90 minutes prior to his arrival to the ED -EKG showed new left bundle branch block, patient was taking the tag and label cutter for angiogram which showed approximately 50% stenosis of mid LAD and major diagonal branch, no other of significant focal stenosis, elevated LVEDP at 25 mmHg. -12/14: chest x-ray showed Small lung volumes with diffuse lung disease, consistent with pulmonary edema versus pneumonia. -discussed with Cardiology, will give Lasix given elevated LVEDP -also start low-dose Coreg at 6.125 q.12 hours per Cardiology -proBNP is elevated 5510 -troponins elevated 0.016-->0.309--> 0.680 -patient is chest pain-free -cardiology following close (2) SAIGE treated with BiPAP: Code(s): G47.33 - Obstructive sleep apnea (adult) (pediatric) Status: Acute Assessment and Plan: Patient with respiratory distress requiring BiPAP -according the patient and his UA the BiPAP almost 24/ while at home and working. (3) GERD (gastroesophageal reflux disease): Code(s): K21.9 - Gastro-esophageal reflux disease without esophagitis Status: Acute Assessment and Plan: Continue home Protonix (4) CRAWLEY (nonalcoholic steatohepatitis): Code(s): K75.81 - Nonalcoholic steatohepatitis (CRAWLEY) Status: Acute Assessment and Plan: History of CRAWLEY, normal LFTs still (5) Acute kidney injury superimposed on chronic kidney disease: Code(s): N17.9 - Acute kidney failure, unspecified; N18.9 - Chronic kidney disease, unspecified Status: Acute Assessment and Plan: Patient has elevated creatinine of 1.5 this morning, his baseline is around 1.30-1.40 -continue monitor urine output, renal function electrolytes -nephrology had seen the patient on 11/18/2022 -kidney functions worsen will consult Nephrology Plan DVT prophylaxis: Status post cardiac catheterization, will start heparin tomorrow morning Stress ulcer prophylaxis: On Protonix Nutrition: Heart healthy diet Code Status: Full code Critical Care Time Spent: 48 minutes Discuss with Cardiology, Dr Matthews Due to a high probability of clinically significant, life threatening deterioration, the patient required my highest level of preparedness to intervene emergently and I personally spent this critical care time directly and personally managing the patient. This critical care time included obtaining a history; examining the patient; pulse oximetry; ordering and review of studies; arranging urgent treatment with development of a management plan; evaluation of patient's response to treatment; frequent reassessment; and discussions with other providers. It was exclusive of separately billable procedures and treating other patients and teaching time. Please see Assessment and Plan section and the rest of the note for further information on patient assessment and treatment This dictation may have been done utilizing a voice recognition system. Attempts have been made to correct errors. However, there may be uncorrected grammatical, spelling, and recognitions errors present. 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
[2022-12-14 12:29] LABS: Lactic Acid 1.4 mmol/L (0.7-2.0)
[2022-12-14 14:37] LABS: Appearance Urine Cloudy (Clear); Bacteria Urine None Seen /hpf; Bilirubin Urine Negative (Negative); Blood Urine 3+ (Negative); Calcium Oxalate Crystals Urine Present /hpf; Color Urine Dark Yellow (Yellow); Glucose Urine UA Negative (Negative); Ketones Urine Negative (Negative); Leukocyte Esterase Ur Trace LEU/UL (NEGATIVE); Nitrate Urine Negative (Negative); Non Pathogenic Casts >20; Protein Urine Trace mg/dL (Negative); RBC Urine 51-100 /hpf (0-2); Specific Grav Ur 1.037 (1.001-1.035); Squamous Epithelial Cell Urine None seen /hpf (Few)
[2022-12-14 14:38] LABS: Add Urine Microscopic? YES
[2022-12-14] MEDS: PANTOPRAZOLE 40 MG TABLET PO (21:32)
[2022-12-14] MEDS: carvediloL 6.25 MG TABLET PO (21:33)
[2022-12-14] MEDS: TAMSULOSIN HCL 0.4 MG CAPSULE PO (21:33)
--- NOTE | 2022-12-14 23:22 | ECG_ITS ---
Measurements Intervals [place] Rate: 52 P: -46 TN: 380 QRS: 114 QRSD: 159 T: 43 QT: 533 QTc: 499 Interpretive Statements SINUS BRADYCARDIA WITH SINUS ARRHYTHMIA WITH FIRST DEGREE AV BLOCK MARKED RIGHT AXIS DEVIATION [QRS AXIS > 100] NONSPECIFIC iNTRAVENTRICULAR CONDUCTION DELAY [130+ ms QRS DURATION] ABNORMAL ECG COMPARED TO ECG 12/14/2022 06:17:21 SINUS BRADYCARDIA NOW PRESENT SINUS ARRHYTHMIA NOW PRESENT FIRST DEGREE AV BLOCK NOW PRESENT INTRAVENTRICULAR CONDUCTION DELAY NOW PRESENT Electronically Signed On 12-15-2022 16:51:46 CDT by Nba Mora M.D.
[2022-12-15] VITALS (29 sets, daily range): BP systolic 75–191; BP diastolic 37–77; PULSE 43–111; RESP 12–25; TEMP 36.7–37.4; O2SAT 97–100; BMI 52.9
--- NOTE | 2022-12-15 | ECHO_ITS ---
Patient Info Name: Vinay Chawla Age: 52 years : 1970 Gender: Male Ht: 68 in Wt: 254 lbs BSA: 2.40 m2 HR: 55 bpm BP: 101 / 58 mmHg Heart Rhythm: Sinus Rhythm, Bradycardia Technical Quality: Fair Exam Date: 12/15/2022 11:43 AM Exam Location: [facility] Card Pulmonary Patient Status: Inpatient Admit Date: 12/14/2022 Staff Ordering Physician: Lexis Conley MD Wire Spinner: Zuleima Grimes RDCS Attending Provider: Bryn Matthews MD Referring Physician: Yael REEVES; Exam Type: CA echo dop color flow w con Study Info Indications - Rule out structural heart disease Complete two-dimensional, color flow and Doppler transthoracic echocardiogram is performed with contrast to opacify the left ventricle and to improve the deliniation of the left ventricle endocardial borders. Contrast/Agitated Saline Contrast/Ag. Saline: Definity Amount: 3.00 ml Administered By: Zuleima Grimes RDCS Existing IV Access: Yes IV Access Condition: patent with no signs of infiltration Summary 1. Technically difficult study. 2. Left ventricular chamber dimension is mildly enlarged. 3. Left ventricular systolic function is normal, estimated at 65-70%. 4. There is mildly increased left ventricular wall thickness. 5. The left ventricular diastolic function is abnormal. 6. Left atrial chamber dimension is severely enlarged. 7. Right atrial chamber dimension is moderately enlarged. 8. There is moderate mitral valve regurgitation. 9. The mitral valve has thickened leaflets. 10. The mitral valve annulus is mildly calcified. 11. There is mild tricuspid valve regurgitation. 12. Moderate pulmonary hypertension, estimated pulmonary arterial systolic pressure is 48 mmHg. 13. There is mild to moderate pulmonic regurgitation. 14. Dilated inferior vena cava with <50% collapse upon inspiration consistent with significantly elevated right atrial pressure, 15 mmHg. 15. Large left pleural effusion. 16. There is trivial pericardial effusion. Left Ventricle Left ventricular chamber dimension is mildly enlarged. Left ventricular systolic function is normal, estimated at 65-70%. There is mildly increased left ventricular wall thickness. The left ventricular diastolic function is abnormal. Technically difficult study. Right Ventricle Right ventricular chamber dimension is normal. Right ventricular systolic function is normal. Left Atria Left atrial chamber dimension is severely enlarged. Right Atria Right atrial chamber dimension is moderately enlarged. Aortic Valve The aortic valve is trileaflet. There is mild aortic valve sclerosis. There is at least mild to moderate eccentric aortic valve regurgitation which cannot be further characterized. Small mobile echodensity of the left coronary cusp concerning for vegetation. Recommend transesophageal echocardiogram for further characterization. Pulmonic Valve The pulmonic valve is not well visualized. There is mild to moderate pulmonic regurgitation. Mitral Valve The mitral valve has thickened leaflets. There is moderate mitral valve regurgitation. The mitral valve annulus is mildly calcified. Tricuspid Valve The tricuspid valve leaflets are normal. There is mild tricuspid valve regurgitation. Moderate pulmonary hypertension, estimated pulmonary arterial systolic pressure is 48 mmHg. Pericardium/Pleural The pericardium appears normal. There is trivial pericardial effusion. Large left pleural effusion. Inferior Vena Cava Dilated inferior vena cava with <50% collapse
[2022-12-15] MEDS: hetaSTARCH 6%/NACL 500 ML 250 ML IV CONT (00:24)
[2022-12-15 01:24] LABS: Anion Gap 5 mmol/L (8-16); Blood Urea Nitrogen 20 mg/dL (9-20); Calcium 7.9 mg/dL (8.4-10.2); Carbon Dioxide 24 mmol/L (22-30); Chloride 101 mmol/L (98-107); Estimated CRCL calculation 88 ml/min; Estimated Glomerular Filt Rate 49; Glucose 89 mg/dL (65-110); Magnesium 1.6 mg/dL (1.6-2.3); Potassium 4.1 mmol/L (3.4-5.0); Sodium 130 mmol/L (137-145)
[2022-12-15] MEDS: MAGNESIUM SULF 2 GM/WATER 50ML 2 GM/50 ML BAG IVPB ×2 (02:56→08:15)
[2022-12-15 04:36] LABS: Basophils Absolute Auto 0.1 K/mm3 (0.0-0.1); Basophils Percent Auto 0.9 % (0.2-1.2); Eosinophils Absolute Auto 0.2 K/mm3 (0-0.3); Eosinophils Percent Auto 3.3 % (0-4.4); Hemoglobin 8.6 g/dL (14.0-18.0); Immature Granulocyte Absolute 0.02 K/mm3 (0.00-0.031); Immature Granulocyte Percent A 0.3 % (0-0.5); Immature Platelet Fraction Pct 3.4 % (0.9-11.2); Lymphocytes Absolute Auto 0.45 K/mm3 (0.9-3.2); Lymphocytes Percent Auto 7.8 % (18.3-44.2); Mean Corpuscular HGB Conc 31.9 g/dl (32-36); Mean Corpuscular Hemoglobin 30.9 pg (26-34); Mean Corpuscular Volume 97.1 fl (80-100); Mean Platelet Volume 11.6 fl (7.4-10.4); Monocytes Absolute Auto 0.6 K/mm3 (0.1-0.6); Monocytes Percent Auto 10.3 % (2.6-8.5); Neutrophils Absolute Auto 4.5 K/mm3 (1.3-6.7); Neutrophils Percent Auto 77.4 % (45.5-73.1); Platelet Count Result 110 k/mm3 (150-375); Red Blood Count 2.78 M/mm3 (4.6-6.20); Red Cell Distribution Width 15.9 % (11.5-14.5); White Blood Count 5.8 K/mm3 (4.5-10.0)
[2022-12-15 04:49] LABS: Alanine Aminotransferase 14 U/L (6-50); Albumin Level 2.2 g/dL (3.5-5.1); Alkaline Phosphatase 87 U/L (38-126); Anion Gap 6 mmol/L (8-16); Aspartate Amino Transferase 35 U/L (17-59); Bilirubin,Total 0.8 mg/dL (0.2-1.3); Blood Urea Nitrogen 20 mg/dL (9-20); Calcium 7.7 mg/dL (8.4-10.2); Carbon Dioxide 23 mmol/L (22-30); Chloride 101 mmol/L (98-107); Estimated CRCL calculation 88 ml/min; Estimated Glomerular Filt Rate 49; Glucose 89 mg/dL (65-110); INR 2.7; Magnesium 1.9 mg/dL (1.6-2.3); Phosphorus 4.6 mg/dL (2.5-4.5); Prothrombin Time 30.9 Seconds (11.1-14.7); Sodium 130 mmol/L (137-145)
[2022-12-15 04:51] LABS: Partial Thromboplastin Time 50.5 SECONDS (22.3-36.8)
[2022-12-15] MEDS: ALBUMIN HUMAN 25% 25 GM/100 ML 100 ML IVPB (05:14)
[2022-12-15] MEDS: PANTOPRAZOLE 40 MG TABLET PO (08:15)
[2022-12-15] MEDS: LORazepam INJ (*CRX) 2 MG/ML VIAL 0.5 MG IV PUSH (09:03)
[2022-12-15] MEDS: LIDOCAINE HCL 1% LOCAL INJ 2 ML AMPUL 5 ML INFILTRATE (09:40)
[2022-12-15 11:29] LABS: Device NON-INVASIVE VENT; Modified Allen's Test Pass; Site Drawn RIGHT RADIAL; pH ABG 7.298 (7.350-7.450)
[2022-12-15 11:30] LABS: Non-Invasive Expiratory Pressure 8 CMH2O; Non-Invasive Inspiratory Pressure 16 CMH2O; Non-Invasive Vent Rate 16 /MIN
[2022-12-15] MEDS: DOXYCYCLINE 100 MG/NS 100 ML 100 MG/100 ML BAG IVPB (12:13)
[2022-12-15] MEDS: AZTREONAM 2 GM in SODIUM CHLORIDE 0.9% IV 100 ML 200 ML IVPB (12:16)
[2022-12-15] MEDS: VANCOMYCIN 1,250 MG/NS 250 ML 1,250 MG/250 ML BAG 166.67 MG IVPB ×2 (12:20→13:52)
[2022-12-15] MEDS: PERFLUTREN LIPID MICROSPHERES 1.5 ML VIAL DILUTED TO 10 ML TOTAL VOLUME IV PUSH (12:20)
--- NOTE | 2022-12-15 12:35 | WPDINTPN ---
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 -12/14: chest x-ray showed Small lung volumes with diffuse lung disease, consistent with pulmonary edema versus pneumonia. -12/14: discussed with Cardiology, will give Lasix given elevated LVEDP -proBNP is elevated 5510 -troponins elevated 0.016-->0.309--> 0.680 -patient is chest pain-free -cardiology following close -patient received 1 dose of Coreg 6.125 mg last night, was bradycardic and hypotensive requiring IV fluids -hold Coreg for now. 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. -echocardiogram was done today, discussed with Cardiology patient may have some AI. but given his rhythm unable to decipher. -discussed with Cardiology, patient may need higher level of care. Cardiology will be working on transferring the patient (2) SAIGE treated with BiPAP: Code(s): G47.33 - Obstructive sleep apnea (adult) (pediatric) Status: Acute Assessment and Plan: Patient with respiratory distress requiring BiPAP -according the patient and his UA the BiPAP almost 24/7 while at home and working. (3) GERD (gastroesophageal reflux disease): Code(s): K21.9 - Gastro-esophageal reflux disease without esophagitis Status: Acute Assessment and Plan: Continue home Protonix (4) CRAWLEY (nonalcoholic steatohepatitis): Code(s): K75.81 - Nonalcoholic steatohepatitis (CRAWLEY) Status: Acute Assessment and Plan: History of CRAWLEY, normal LFTs (5) Acute kidney injury superimposed on chronic kidney disease: Code(s): N17.9 - Acute kidney failure, unspecified; N18.9 - Chronic kidney disease, unspecified Status: Acute Assessment and Plan: Patient has elevated creatinine of 1.5 this morning, his baseline is around 1.30-1.40 -continue monitor urine output, renal function electrolytes -nephrology had seen the patient on 11/18/2022 -continue to monitor renal function, electrolytes and urine output Plan DVT prophylaxis: Status post cardiac catheterization, will start heparin tomorrow morning Stress ulcer prophylaxis: On Protonix Nutrition: Heart healthy diet Code Status: Full code Critical Care Time Spent: 35 minutes Discuss with Cardiology, Dr Mora -discussed with patient and spouse at bedside updated with patient's condition and of care. They are aware that patient may be transferred to a tertiary care center for higher level of care Due to a high probability of clinically significant, life threatening deterioration, the patient required my highest level of preparedness to intervene emergently and I personally spent this critical care time directly and personally managing the patient. This critical care time included obtaining a history; examining the patient; pulse oximetry; ordering and review of studies; arranging urgent treatment with development of a management plan; evaluation of patient's response to treatment; frequent reassessment; and discussions with other providers. It was exclusive of separately billable procedures and treating other patients and teaching time. Please see Assessment and Plan section and the rest of the note for further information on patient assessment and treatment This dictation may have been done utilizing a voice recognition system. Attempts have been made to cor
[2022-12-15 12:53] LABS: MRSA (PCR) NOT DETECTED (NOT DETECTE)
--- NOTE | 2022-12-15 13:01 | IVDEFINITY ---
Prior to administration of IV Definity the patient was educated on the risks and benefits of the imaging enhancing agent including potential adverse side effects. The patient verbalized understanding. Allergies were verified. No exclusion criteria were identified and at least one of the following inclusion criteria were met: 1) physician request, 2) patient technically difficult to image (per the [place] [employer] guidelines of two or more segments not discernable within the apical view), or 3) questionable left ventricular function. ?
[2022-12-15] MEDS: SALINE LOCK FLUSH 10 ML IV PUSH (13:53)
[2022-12-15 14:24] LABS: Basophils Absolute Auto 0.1 K/mm3 (0.0-0.1); Basophils Percent Auto 0.9 % (0.2-1.2); Eosinophils Absolute Auto 0.2 K/mm3 (0-0.3); Hematocrit 29.3 % (42.0-52.0); Immature Granulocyte Absolute 0.03 K/mm3 (0.00-0.031); Immature Granulocyte Percent A 0.5 % (0-0.5); Immature Platelet Fraction Pct 3.3 % (0.9-11.2); Lymphocytes Absolute Auto 0.42 K/mm3 (0.9-3.2); Lymphocytes Percent Auto 6.3 % (18.3-44.2); Mean Corpuscular HGB Conc 30.7 g/dl (32-36); Mean Corpuscular Hemoglobin 30.6 pg (26-34); Mean Corpuscular Volume 99.7 fl (80-100); Mean Platelet Volume 11.4 fl (7.4-10.4); Monocytes Absolute Auto 0.5 K/mm3 (0.1-0.6); Monocytes Percent Auto 8.1 % (2.6-8.5); Neutrophils Absolute Auto 5.4 K/mm3 (1.3-6.7); Neutrophils Percent Auto 81.2 % (45.5-73.1); Platelet Count Result 121 k/mm3 (150-375); Red Blood Count 2.94 M/mm3 (4.6-6.20); White Blood Count 6.7 K/mm3 (4.5-10.0)
[2022-12-15 14:49] LABS: Troponin I 0.587 ng/mL (0.000-0.034)
--- NOTE | 2022-12-15 14:53 | PM.PNCARD ---
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 Patient presented with chest discomfort, EKG showed presumably new left bundle branch block. He underwent cardiac catheterization through right radial access. Coronary angiogram , which was suboptimal image quality due to morbid obesity, showed about 50% stenosis in the mid LAD and proximal segment of the major diagonal branch. No other significant obstructive disease was seen. No PCI was performed. Left ventriculogram was not performed. LVEDP was elevated 25 mmHg. At the completion of the catheterization, patient denied any ongoing symptoms of chest pain. - due to recent worsening of symptoms in respiratory distress, patient will be admitted to the ICU for further observation and management. - diuresis as needed - trend troponins , NT proBNP. Monitor electrolytes and renal function. - check echocardiogram with Doppler (with echo contrast) to rule out any major structural heart disease. (2) Acute heart failure with preserved ejection fraction (HFpEF): Code(s): I50.31 - Acute diastolic (congestive) heart failure Status: Acute Assessment and Plan: Patient presents with worsening acute on chronic heart failure with preserved ejection fraction. (3) Aortic regurgitation: Qualifiers: Cardiac valve disease etiology: etiology unspecified Qualified Code(s): I35.1 - Nonrheumatic aortic (valve) insufficiency Code(s): I35.1 - Nonrheumatic aortic (valve) insufficiency Status: Acute Assessment and Plan: Exam suggestive of more prominent diastolic murmur and concern for aortic regurgitation. Patient is very complicated recent history with worsening heart failure and acute respiratory failure, significant orthopnea with severe subjective shortness of breath requiring BiPAP, elevated troponin, history of aortic valve endocarditis, recent duodenal perforation, history of septic arthritis and history of MSSA bacteremia. 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 Discussed with patient and his at bedside my clinical concern and which case he would meet criteria for early surgery for complicated endocarditis. Nonetheless, patient is very complicated with multiorgan system involvement, be high risk for any surgical intervention. Nonetheless, we do not have the services at this hospital and he would need to be transferred out to a higher level of care with cardiothoracic surgical evaluation and or electrophysiology. Bedside echocardiogram revealed suspicion for at least mild likely more severe but with eccentric jet very difficult to characterize due to technical difficulty with study. Unable to appreciate ascending abdominal aortic diastolic reversal. LV systolic function is preserved EF 65-70% small mobile echodensity appreciated, sugars between the left and non coronary cusp concerning for vegetation. Discussed with Dr. Mccartney cardiology at [facility] who agreed to see the patient in consult the recommend transfer to the MICU. Dr. Justin Solorio CTS at [facility] return my phone call and agree with my clinical concerns but preferred he transferred under h
--- NOTE | 2022-12-15 15:24 | PM.TDS ---
Transfer Discharge Sum: Prov Provider Date of admission: 12/14/22 06:32 Primary care physician: Paxton Disla MD Admitting clinician: Bryn Matthews MD Consults: Critical care Attending physician on discharge: Nba Mora Discharging clinician: Nba Mora Receiving physician/facility: Dr. 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 Patient presented with chest discomfort, EKG showed presumably new left bundle branch block. He underwent cardiac catheterization through right radial access. Coronary angiogram , which was suboptimal image quality due to morbid obesity, showed about 50% stenosis in the mid LAD and proximal segment of the major diagonal branch. No other significant obstructive disease was seen. No PCI was performed. Left ventriculogram was not performed. LVEDP was elevated 25 mmHg. At the completion of the catheterization, patient denied any ongoing symptoms of chest pain. - due to recent worsening of symptoms in respiratory distress, patient will be admitted to the ICU for further observation and management. - diuresis as needed - trend troponins , NT proBNP. Monitor electrolytes and renal function. - check echocardiogram with Doppler (with echo contrast) to rule out any major structural heart disease. (2) Acute heart failure with preserved ejection fraction (HFpEF): Code(s): I50.31 - Acute diastolic (congestive) heart failure Status: Acute Assessment and Plan: Patient presents with worsening acute on chronic heart failure with preserved ejection fraction. (3) Aortic regurgitation: Qualifiers: Cardiac valve disease etiology: etiology unspecified Qualified Code(s): I35.1 - Nonrheumatic aortic (valve) insufficiency Code(s): I35.1 - Nonrheumatic aortic (valve) insufficiency Status: Acute Assessment and Plan: Exam suggestive of more prominent diastolic murmur and concern for aortic regurgitation. Patient is very complicated recent history with worsening heart failure and acute respiratory failure, significant orthopnea with severe subjective shortness of breath requiring BiPAP, elevated troponin, history of aortic valve endocarditis, recent duodenal perforation, history of septic arthritis and history of MSSA bacteremia. 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 Discussed with patient and his at bedside my clinical concern and which case he would meet criteria for early surgery for complicated endocarditis. Nonetheless, patient is very complicated with multiorgan system involvement, be high risk for any surgical intervention. Nonetheless, we do not have the services at this hospital and he would need to be transferred out to a higher level of care with cardiothoracic surgical evaluation and or electrophysiology. Bedside echocardiogram revealed suspicion for at least mild likely more severe but with eccentric jet very difficult to characterize d
--- NOTE | 2022-12-15 16:57 | PC.NURSE ---
After calling report to Breonna AZAR at [facility], then [facility] here and took pt via stretcher to [facility] at 1642, Breonna Azar notified of them leaving at this time
== END 2022-12-15 16:42 | disposition short-term general hospital (02) | DRG 286 ==
LOC: ANHED 06:24 → ANHICU 06:46
PROVIDERS: Internal Medicine; Admitting Provider Internal Medicine Cardiovascular Disease; Emergency Provider Emergency Medicine; PCP Family Medicine; Visit Provider Internal Medicine Cardiovascular Disease
PROC: 4A023N7 Measurement of Cardiac Sampling and Pressure, Left Heart, Percutaneous Approach (ICD-10-PCS; CPT 93452; principal; 2022-12-14 06:50)
DX: I25.10 Atherosclerotic heart disease of native coronary artery without angina pectoris (principal); I50.31 Acute diastolic (congestive) heart failure; Z68.43 Body mass index [BMI] 50.0-59.9, adult; I13.0 Hypertensive heart and chronic kidney disease with heart failure and stage 1 through stage 4 chronic kidney disease, or unspecified chronic kidney disease; N17.9 Acute kidney failure, unspecified; I35.1 Nonrheumatic aortic (valve) insufficiency; R06.03 Acute respiratory distress; I44.7 Left bundle-branch block, unspecified; I48.0 Paroxysmal atrial fibrillation; D69.6 Thrombocytopenia, unspecified; N18.30 Chronic kidney disease, stage 3 unspecified; G47.33 Obstructive sleep apnea (adult) (pediatric); K74.60 Unspecified cirrhosis of liver; E66.01 Morbid (severe) obesity due to excess calories; F98.8 Other specified behavioral and emotional disorders with onset usually occurring in childhood and adolescence; K21.9 Gastro-esophageal reflux disease without esophagitis; K75.81 Nonalcoholic steatohepatitis (NASH); Z79.01 Long term (current) use of anticoagulants; Z86.79 Personal history of other diseases of the circulatory system
CPT/HCPCS: 36415; 36569; 36600; 71045; 80048; 80053; 81001; 82375; 82805; 83050; 83605; 83690; 83735; 83880; 84100; 84484; 85025; 85055; 85610; 85730; 87040; 87086; 87088; 87641; 93005; 93458; 94002; 94003; 99285; A9270; C1769; C1887; C1894; C8929; G0269; J0457; J0583; J1644; J1940; J2060; J2250; J2305; J3010; J3370; J3475; J7040; P9047; Q9957

== ENCOUNTER 2023-03-18 12:41 | Inpatient (IN) | payer OTHER, SELFPAY ==
[2023-03-18] VITALS (23 sets, daily range): BP systolic 94–133; BP diastolic 47–89; PULSE 63–73; RESP 12–18; TEMP 36.6; O2SAT 95–100; BMI 33.4
--- NOTE | ~2023-03-18 | CT_ITS ---
EXAMINATION: CT brain wo con DATE: 03/18/2023 13:57 INDICATION: Altered mental state. Lethargy. TECHNIQUE: Computed tomography (CT) of the head was performed without intravenous contrast. The mA wa s adjusted according to patient size. Iterative reconstruction technique was employed. Exam dose: 10 59.33 mGy-cm total exam DLP. COMPARISON: 07/21/2020 CT brain carotid FINDINGS: Examination is limited by motion artifact. No intracranial mass lesion or hemorrhage, midline shift or mass effect or subdural or epidural hemat celeste is detected. Normal ventricular size. There is intracranial calcified atherosclerosis. The mastoid air cells and included paranasal sinuses are normally developed and aerated. No fracture or bone destruction of the cranial vault is detected. IMPRESSION: Limited examination due to motion artifact No acute intracranial finding or skull fracture is detected Reviewed, dictated and finalized at [facility]. Reviewed, dictated and finalized at location B. ERN VAULT CLERK
--- NOTE | ~2023-03-18 | US_ITS ---
EXAMINATION: US soft tissue groin LT DATE: 03/18/2023 17:01 INDICATION: Left groin mass. TECHNIQUE: Multiple grayscale and Doppler ultrasound images of the left groin were obtained. COMPARISON: CT abdomen and pelvis 03/18/2023, 06/13/21, ultrasound 07/16/2022 FINDINGS: In the anterior proximal left thigh, there is an 8.6 x 4.3 x 5.2 cm heterogeneous hypoechoi c mass. IMPRESSION: 1. 8.6 cm subcutaneous mass in the anterior proximal left thigh, which may be a hematoma or less like ly a neoplasm. Reviewed, dictated and finalized at location E. NG COOKER IMPRESSION: 1. 8.6 cm subcutaneous mass in the anterior proximal left thigh, which may be a hematoma or less likely a neoplasm.
--- NOTE | ~2023-03-18 | US_ITS ---
EXAMINATION: US renal BI DATE: 03/19/2023 14:15 INDICATION: Acute renal insufficiency TECHNIQUE: Multiple ultrasound grayscale images of the kidneys were obtained. COMPARISON: None. FINDINGS: The right kidney measures 12.1 x 7.0 x 6.3 cm. The left kidney measures 13.0 x 5.7 x 5.8 cm. The kidn eys demonstrate normal echogenicity. 6 mm echogenic stone with posterior twinkle artifact at a lower pole calyx of the left kidney There is no hydronephrosis in either kidney. The bladder is normal. IMPRESSION: 1. 6 mm stone at the lower pole of the left kidney without hydronephrosis. Reviewed, dictated and finalized at location A. GER GOVERNMENT
--- NOTE | ~2023-03-18 | CT_ITS ---
EXAMINATION: CT abdomen pelvis wo con DATE: 03/18/2023 15:11 INDICATION: Nausea, constipation. History of cirrhosis. TECHNIQUE: Computed tomography (CT) of the abdomen and pelvis was performed without intravenous contr ast. Automated exposure control and iterative reconstruction technique were employed. Exam dose: 156 8.21 mGy-cm total exam DLP. COMPARISON: June 09, 2022 right upper quadrant abdominal ultrasound November 19, 2021 right upper quadrant abdominal ultrasound June 13, 2021 CT abdomen pelvis FINDINGS: There is minimal discoid atelectasis or scarring but no consolidation at the lung bases. No pleural or pericardial effusion. Status post sternotomy and cardiac valve replacement. Heart size is normal. Status post cholecystectomy. There is prominent surface nodularity of the liver consistent with cirrhosis. No hepatic space-occupy ing mass lesion is detected. Splenic size is within normal limits. No hepatic, splenic, pancreatic or adrenal or renal space-occupying mass lesion is evident on this li mited noncontrast examination. No bile duct or pancreatic duct dilatation. Approximately 5 mm nonobstructing lower pole left renal calculus. No other urinary tract calculus or hydroureteronephrosis. Normal caliber of the abdominal aorta. No evidence of abdominal aortic aneurysm. Stable mild periport al lymphadenopathy since 2017; otherwise no intraperitoneal or retroperitoneal or pelvic mass lesion or adenopathy or ascites. Mild prostate calcification. The urinary bladder is unremarkable. Normal appendix. There is a prominent amount of fecal material in the colon. No bowel obstruction is evident. Prominent tortuous veins in the pelvic area with drainage to the left iliac vein and the splenic vein , not noted on 01/26/2017. There is an approximately 4.1 x 7 cm left inguinal soft tissue mass which may represent lymphadenopat hy, metastasis, hematoma or pseudoaneurysm. There is widening of the intervertebral disc space at L3-4 with very irregular inferior L3 and superi or L4 vertebral endplates, with patchy sclerosis. Consider discitis, osteomyelitis. There is mild ret rolisthesis and prominent posterior spurring at this L3-4 level. There is lesser irregularity and sclerosis at the posterior inferior vertebral endplate at L2, with m ild retrolisthesis and prominent posterior spurring at this level as well. There is degenerative change at the apophyseal joints with associated grade 1 anterolisthesis at L4-5 , moderately severe degenerative disc disease at this level. There is moderate degenerative disease o f the remainder of the lumbar and lumbosacral spine. Diffuse idiopathic skeletal hyperostosis of the thoracic spine. IMPRESSION: 4.1 x 7 cm left inguinal soft tissue mass; diffusion diagnosis includes lymphadenopathy, metastasis, hematoma or pseudoaneurysm Prominent cirrhosis Status post cholecystectomy 5 mm nonobstructing lower pole left renal calculus Prominent irregularity and sclerosis of the apposing vertebral endplates at L3-4; consider discitis, osteomyelitis Multilevel degenerative disc disease of the lumbar spine Grade 1 anterolisthesis at L4-5 Diffuse idiopathic skeletal hyperostosis of the thoracic spine Reviewed, dictated and finalized at [facility]. Reviewed, dictated and finalized at location B. NESS TESTER IMPRESSION: 4.1 x 7 cm left inguinal soft tissue mass; diffusion diagnosis inc ludes lymphadenopathy, metastasis, hematoma or pseudoaneurysm Prominent cirrhosis Status post cholecystectomy 5 mm nonobstructing lower pole left renal calculus Prominent irregularity and sclerosis of the apposing vertebral endplates at L3- 4; consider discitis, osteomyelitis Multilevel degenerative disc disease of the lumbar spine Grade 1 anterolisthesis at L4-5 Diffuse idiopathic
--- NOTE | ~2023-03-18 | CT_ITS ---
EXAMINATION: CT lumbar spine w con DATE: 03/31/2023 15:22 INDICATION: Lumbar discitis and osteomyelitis. TECHNIQUE: Computed tomography (CT) of the lumbar spine was performed with 100 mL Omnipaque 350 intra venous contrast. Automated exposure control and iterative reconstruction technique were employed. The dose-length product was 1628.65 mGy-cm. COMPARISON: CT abdomen and pelvis 03/18/2023 FINDINGS: There are moderate-sized right and small left pleural effusions. There is a 4 mm stone in l eft kidney. Perirectal varices are noted, consistent with portal venous hypertension. There is 9 degr ees levocurvature of thoracolumbar spine. There is mild chronic anterior wedging of T9-L1 vertebral b odies. There is 3 mm retrolisthesis of L2 on L3 and 3 mm anterolisthesis of L4 on L5. There is mildly decreased disc height at T12-L1 and L1-L2, moderately decreased disc height at L2-L3, severely decre ased disc height at L3-L4, and mildly decreased disc height at L4-L5. There are endplate erosions at L3-L4. There is vacuum disc phenomenon at L3-L4. There are bridging endplate osteophytes at multiple levels in the thoracic spine, consistent with diffuse idiopathic skeletal hyperostosis (DISH). The f ollowing disc levels are specifically discussed: L1-L2: The disc is bulging. There is severe bilateral facet joint osteoarthritis. There is mild bilat eral neural foraminal stenosis. There is mild central canal stenosis. L2-L3: The disc is bulging. There is severe bilateral facet joint osteoarthritis. There is moderate b ilateral neural foraminal stenosis. There is mild central canal stenosis. L3-L4: The disc is bulging. There is severe bilateral facet joint osteoarthritis. There is moderate b ilateral neural foraminal stenosis. There is severe central canal stenosis. L4-L5: The disc is bulging. There is severe bilateral facet joint osteoarthritis. There is moderate b ilateral neural foraminal stenosis. There is mild central canal stenosis. L5-S1: The disc is bulging. There is severe bilateral facet joint osteoarthritis. There is mild bilat eral neural foraminal stenosis. There is mild central canal stenosis. IMPRESSION: 1. Endplate erosions at L3-L4, stable from 03/18/2023 and new from 06/13/2021, consistent with discitis and osteomyelitis. 2. Severe lumbar spondylosis. Reviewed, dictated and finalized at location A. ONAL ACCOUNT MANAGER IMPRESSION: 1. Endplate erosions at L3-L4, stable from 03/18/2023 and new from 06/13/2021, co nsistent with discitis and osteomyelitis. 2. Severe lumbar spondylosis.
--- NOTE | ~2023-03-18 | US_ITS ---
EXAMINATION: US venous doppler [facility] DATE: 04/02/2023 19:01 INDICATION: Asymmetric lower limb swelling TECHNIQUE: Grayscale ultrasound images without and with compression and Doppler ultrasound images of the bilateral lower extremity veins were obtained. COMPARISON: None. FINDINGS: The visualized portions of right common femoral vein, profunda (deep) femoral vein, femoral vein, pop liteal vein, posterior tibial veins, peroneal veins, gastrocnemius vein and greater saphenous vein ou tflow are patent. The visualized portions of left common femoral vein, profunda femoral vein, femoral vein, popliteal v ein, posterior tibial veins, peroneal veins, gastrocnemius vein and greater saphenous vein outflow ar e patent. IMPRESSION: 1. No deep venous thrombosis in either lower limb. Reviewed, dictated and finalized at location A. STOCK BROKER
--- NOTE | 2023-03-18 12:54 | ECG_ITS ---
Measurements Intervals [place] Rate: 68 P: -65 OR: 198 QRS: 4 QRSD: 111 T: 110 QT: 425 QTc: 454 Interpretive Statements SINUS RHYTHM WITH FIRST DEGREE AV BLOCK POSSIBLE LEFT ATRIAL ENLARGEMENT INTRAVENTRICULAR CONDUCTION DELAY DELAYED PRECORDIAL R/S TRANSITION ST-T WAVE ABNORMALITY IN HIGH LATERAL LEADS- CONSIDER ISCHEMIA BASELINE ARTIFACT- V1, V3 ABNORMAL ECG COMPARED TO ECG 12/14/2022 23:30:46 ST-T WAVE ABNORMALITY NOW PRESENT Electronically Signed On 03-18-2023 13:02:36 LIABILITY CLAIMS EXAMINER by Wood Larkin D.O.
[2023-03-18 13:16] LABS: Basophils Absolute Auto 0.1 K/mm3 (0.0-0.1); Eosinophils Absolute Auto 0.1 K/mm3 (0-0.3); Eosinophils Percent Auto 2.2 % (0-4.4); Hematocrit 32.9 % (42.0-52.0); Hemoglobin 11.5 g/dL (14.0-18.0); Immature Granulocyte Absolute 0.01 K/mm3 (0.00-0.031); Immature Granulocyte Percent A 0.2 % (0-0.5); Lymphocytes Percent Auto 15.1 % (18.3-44.2); Mean Corpuscular Hemoglobin 31.4 pg (26-34); Mean Corpuscular Volume 89.9 fl (80-100); Mean Platelet Volume 10.1 fl (7.4-10.4); Monocytes Absolute Auto 1.2 K/mm3 (0.1-0.6); Monocytes Percent Auto 19.6 % (2.6-8.5); Neutrophils Absolute Auto 3.7 K/mm3 (1.3-6.7); Neutrophils Percent Auto 61.9 % (45.5-73.1); Platelet Count Result 115 k/mm3 (150-375); Red Blood Count 3.66 M/mm3 (4.6-6.20); Red Cell Distribution Width 14.4 % (11.5-14.5)
[2023-03-18 13:24] LABS: Glucose Point of Care 95 mg/dl (65-105)
[2023-03-18 13:25] LABS: Ammonia 108 umol/L (9-30)
[2023-03-18 13:26] LABS: INR 1.9; Potassium 3.6 mmol/L (3.4-5.0); Prothrombin Time 22.7 Seconds (11.1-14.7)
[2023-03-18 13:27] LABS: Partial Thromboplastin Time 40.4 SECONDS (22.3-36.8)
[2023-03-18 13:32] LABS: Alanine Aminotransferase 55 U/L (6-50); Albumin Level 4.1 g/dL (3.5-5.1); Alkaline Phosphatase 167 U/L (38-126); Anion Gap 12 mmol/L (8-16); Aspartate Amino Transferase 53 U/L (17-59); Bilirubin,Total 1.1 mg/dL (0.2-1.3); Blood Urea Nitrogen 47 mg/dL (9-20); Calcium 9.4 mg/dL (8.4-10.2); Carbon Dioxide 20 mmol/L (22-30); Chloride 94 mmol/L (98-107); Estimated CRCL calculation 34 ml/min; Estimated Glomerular Filt Rate 20; Glucose 97 mg/dL (65-110); Sodium 126 mmol/L (137-145)
--- NOTE | 2023-03-18 14:47 | ED.AMS ---
HPI - Altered Mental Status General Chief Complaint: Altered Mental Status Stated Complaint: AMS Time Seen by Provider: 03/18/23 13:01 History of Present Illness HPI narrative: Patient is a 52-year-old male with a history of CRAWLEY, cirrhosis, aortic valve replacement presenting with confusion. Patient's provides most of the history. States that he is compliant with his rifaximin and lactulose. Over the last couple of days he has had decreasing bowel movements. States that they have even been trying enemas without any subsequent large bowel movements. He is still having small ones. He has been increasingly confused and is behaving similarly to prior episodes of elevated pneumonia. States that he feels nauseous but denies any abdominal pain. No chest pain or shortness of breath. No fevers, cough, vomiting, dysuria, leg swelling. Related Data Home Medications Medication Instructions Recorded Confirmed aspirin 81 mg chewable tablet 1 tablet PO DAILY 01/26/23 03/18/23 Antacid-Simethicone 1 tab-cap PO DAILY 03/18/23 03/18/23 amiodarone 400 mg tablet 400 mg PO DAILY 03/18/23 03/18/23 lactulose 10 gram/15 mL oral 30 ml PO TID 03/18/23 03/18/23 solution omeprazole magnesium 20 mg 20 mg PO DAILY 03/18/23 03/18/23 tablet,delayed release (Prilosec OTC) spironolactone 25 mg tablet 25 mg PO BID 03/18/23 03/18/23 Allergies Allergy/AdvReac Type Severity Reaction Status Date / Time ciprofloxacin Allergy Rash Verified 01/26/23 11:15 guaifenesin AdvReac Unknown Unknown Verified 01/26/23 11:15 pseudoephedrine AdvReac Unknown Unknown Verified 01/26/23 11:15 cefazolin [From Ancef] AdvReac Unknown Verified 01/26/23 11:15 Review of Systems Review of Systems: All systems reviewed & are unremarkable except as noted in HPI and below PMFSH Past Medical History Medical History (Updated 03/22/23 @ 15:13 by Edith Barney MD) ADD (attention deficit disorder) Adenomatous colon polyp BMI 50.0-59.9, adult Cirrhosis Decreased libido Endocarditis of aortic valve Epigastric pain Esophageal varices GERD (gastroesophageal reflux disease) Hypertension CRAWLEY (nonalcoholic steatohepatitis) Obesity, morbid, BMI 40.0-49.9 SAIGE (obstructive sleep apnea) Right rotator cuff tear Thrombocytopenia Surgical History Surgical History History of aortic valve replacement with bioprosthetic valve History of cardiac catheterization History of cholecystectomy History of left knee surgery Family History Family History Father Family history of diabetes mellitus in first degree relative Hypertension Acute myocardial infarction Mother Family history of thyroid disease Social History Social History Smoking status: Never smoker Alcohol intake: never Drinks per week: 12 Alcohol use details: socially Substance use: never Substance use type: does not use Do You Feel Safe in your Home?: Yes Lack of Transportation: No Lack of Food: Never True Current Housing: I Have Housing Concerned About Future Housing: No Difficulty Paying Gas/Electric Bills: No Difficulty Paying for Meds: No Currently Unemployed: No Education: Bachelor's Degree Difficulty w/ Childcare or Family Care: No Living arrangements: with family Spiritual care concerns: No Exam Narrative: GENERAL: Nontoxic, no acute distress, pleasant cooperative HEAD: Normocephalic, atraumatic. EYES: PERRLA and EOMI. ENT: grossly unremarkable NECK: Supple. CHEST: Clear to auscultation. No respiratory distress. HEART: Regular rate and rhythm ABDOMEN: Soft, nontender, nondistended EXTREMITIES: Normal range of motion. No edema. SKIN: Warm, dry, no rash. NEURO: No focal deficits. Alert and oriented to self and place. PSYCH: Normal mood and affect. Course Vital Signs
[2023-03-18] MEDS: SODIUM CHLORIDE 0.9% IV 1,000 ML 999 ML IV CONT (15:14)
[2023-03-18 16:58] LABS: Appearance Urine Clear (Clear); Bacteria Urine None Seen /hpf; Bilirubin Urine Negative (Negative); Blood Urine 1+ (Negative); Color Urine Yellow (Yellow); Glucose Urine UA Negative (Negative); Ketones Urine Negative (Negative); Leukocyte Esterase Ur Negative LEU/UL (Negative); Nitrate Urine Negative (Negative); Non Pathogenic Casts 0-2; Protein Urine Negative (Negative); Squamous Epithelial Cell Urine None seen /hpf (Few); Urobilinogen Urine 0.2 mg/dL (<2.0); WBC Urine 0-5 /hpf; pH Urine 5.5 (5.0-9.0)
[2023-03-18 17:02] LABS: Add Urine Microscopic? YES
--- NOTE | 2023-03-18 18:17 | PC.NURSE ---
Pts called stating she wants an update when pt gets a room.
--- NOTE | 2023-03-18 19:03 | PC.NURSE ---
Pts notified of pts room number.
[2023-03-18 19:30] LABS: Influenza A QL RT-PCR Negative (Negative); Influenza B QL RT-PCR Negative (Negative); SARS-CoV-2 RNA PCR Negative (Negative)
--- NOTE | 2023-03-18 19:43 | ADMGEN ---
This patient, Vinay Chawla, was admitted to Medical Room 243-. Patient/family oriented to hospital policies and general routines including ID bracelet, bed and alarms, visiting hours, pain management, procedures, bathroom and other care routines, personal items, smoking policy, room service/diet, and visiting hours. Information on how to activate the Rapid Response Team has been discussed. Patient/Family are encouraged to report perceived risks to care and to ask questions if they do not understand what they are told or what they should do.
--- NOTE | 2023-03-18 20:51 | PM.IMHP ---
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 Patient comes to the emergency room today due to lethargy, confusion, mental fog. Patient has been in his usual state of health he had aortic valve repair in November of last year has been doing fairly well. Preliminary workup was significant for ammonia level of 108 chemistry panel was significant for a sodium of 126 chloride 97 BUN 47 creatinine 3.2 bicarb is 20. Patient is been admitted for further evaluation management and treatment. EXAMINATION: CT brain wo con DATE: 03/18/2023 13:57 INDICATION: Altered mental state. Lethargy. TECHNIQUE: Computed tomography (CT) of the head was performed without intravenous contrast. The mA was adjusted according to patient size. Iterative reconstruction technique was employed. Exam dose:? 1059.33 mGy-cm total exam DLP.? COMPARISON: 07/21/2020 CT brain carotid FINDINGS: Examination is limited by motion artifact. No intracranial mass lesion or hemorrhage, midline shift or mass effect or subdural or epidural hematoma is detected. Normal ventricular size. There is intracranial calcified atherosclerosis. The mastoid air cells and included paranasal sinuses are normally developed and aerated. No fracture or bone destruction of the cranial vault is detected. IMPRESSION:? Limited examination due to motion artifact No acute intracranial finding or skull fracture is detected EXAMINATION: CT abdomen pelvis wo con DATE: 03/18/2023 15:11 INDICATION: Nausea, constipation. History of cirrhosis. TECHNIQUE: Computed tomography (CT) of the abdomen and pelvis was performed without intravenous contrast. Automated exposure control and iterative reconstruction technique were employed. Exam dose:? 1568.21 mGy-cm total exam DLP.? COMPARISON: June 09, 2022 right upper quadrant abdominal ultrasound November 19, 2021 right upper quadrant abdominal ultrasound June 13, 2021 CT abdomen pelvis FINDINGS: There is minimal discoid atelectasis or scarring but no consolidation at the lung bases. No pleural or pericardial effusion. Status post sternotomy and cardiac valve replacement. Heart size is normal. Status post cholecystectomy. There is prominent surface nodularity of the liver consistent with cirrhosis. No hepatic space-occupying mass lesion is detected. Splenic size is within normal limits. No hepatic, splenic, pancreatic or adrenal or renal space-occupying mass lesion is evident on this limited noncontrast examination. No bile duct or pancreatic duct dilatation. Approximately 5 mm nonobstructing lower pole left renal calculus. No other urinary tract calculus or hydroureteronephrosis. Normal caliber of the abdominal aorta. No evidence of abdominal aortic aneurysm. Stable mild periportal lymphadenopathy since 2017; otherwise no intraperitoneal or retroperitoneal or pelvic mass lesion or adenopathy or ascites. Mild prostate calcification. The urinary bladder is unremarkable. Normal appendix. There is a prominent amount of fecal material in the colon. No bowel obstruction is evident. Prominent tortuous veins in the pelvic area with drainage to the left iliac vein and the splenic vein, not noted on 01/26/2017. There is an approximately 4.1 x 7 cm left inguinal soft tissue mass which may represent lymphadenopathy, metastasis, hematoma or pseudoaneurysm. There is widening of the intervertebral disc space at L3-4 with very irregular inferior L3 and superior L4 vertebral endplates, with patchy sclerosis. Consider discitis, osteomyelitis. There is mild retrolisthesis and prominent posterior spurring at this L3-4 level. There is lesser irregularity and sclerosis at the posterior inferior vertebral endplate at L2, with mild retro
[2023-03-19] VITALS (15 sets, daily range): BP systolic 100–123; BP diastolic 60–66; PULSE 57–80; RESP 16–20; TEMP 36.1–36.6; O2SAT 96–100
[2023-03-19 05:51] LABS: Basophils Absolute Auto 0.1 K/mm3 (0.0-0.1); Basophils Percent Auto 1.3 % (0.2-1.2); Eosinophils Absolute Auto 0.1 K/mm3 (0-0.3); Eosinophils Percent Auto 2.8 % (0-4.4); Hematocrit 27.4 % (42.0-52.0); Hemoglobin 9.9 g/dL (14.0-18.0); Immature Granulocyte Absolute 0.02 K/mm3 (0.00-0.031); Immature Granulocyte Percent A 0.4 % (0-0.5); Lymphocytes Absolute Auto 1.16 K/mm3 (0.9-3.2); Lymphocytes Percent Auto 24.9 % (18.3-44.2); Mean Corpuscular HGB Conc 36.1 g/dl (32-36); Mean Corpuscular Volume 88.7 fl (80-100); Mean Platelet Volume 10.5 fl (7.4-10.4); Monocytes Absolute Auto 0.7 K/mm3 (0.1-0.6); Monocytes Percent Auto 15.9 % (2.6-8.5); Neutrophils Absolute Auto 2.6 K/mm3 (1.3-6.7); Neutrophils Percent Auto 54.7 % (45.5-73.1); Platelet Count Result 102 k/mm3 (150-375); Red Blood Count 3.09 M/mm3 (4.6-6.20); Red Cell Distribution Width 14.5 % (11.5-14.5); White Blood Count 4.7 K/mm3 (4.5-10.0)
[2023-03-19 06:12] LABS: Anion Gap 13 mmol/L (8-16); Blood Urea Nitrogen 44 mg/dL (9-20); Carbon Dioxide 16 mmol/L (22-30); Chloride 98 mmol/L (98-107); Estimated CRCL calculation 40 ml/min; Estimated Glomerular Filt Rate 25; Glucose 86 mg/dL (65-110); Magnesium 2.3 mg/dL (1.6-2.3); Phosphorus 4.5 mg/dL (2.5-4.5); Potassium 3.7 mmol/L (3.4-5.0); Sodium 127 mmol/L (137-145)
--- NOTE | 2023-03-19 08:09 | PM.IMPN ---
Progress Note: A&P Assessment and Plan (1) Encephalopathy acute: Code(s): G93.40 - Encephalopathy, unspecified Status: Acute (2) Hyperammonemia: Code(s): E72.20 - Disorder of urea cycle metabolism, unspecified Status: Acute (3) CRAWLEY (nonalcoholic steatohepatitis): Code(s): K75.81 - Nonalcoholic steatohepatitis (CRAWLEY) Status: Acute (4) Cirrhosis: Qualifiers: Ascites presence: without ascites Hepatic cirrhosis type: unspecified hepatic cirrhosis Qualified Code(s): K74.60 - Unspecified cirrhosis of liver Code(s): K74.60 - Unspecified cirrhosis of liver Status: Acute (5) Hepatic encephalopathy: Code(s): K76.82 - Hepatic encephalopathy Status: Acute (6) Acute kidney injury superimposed on chronic kidney disease: Code(s): N17.9 - Acute kidney failure, unspecified; N18.9 - Chronic kidney disease, unspecified Status: Acute (7) Atrial fibrillation: Qualifiers: Atrial fibrillation type: paroxysmal Qualified Code(s): I48.0 - Paroxysmal atrial fibrillation Code(s): I48.91 - Unspecified atrial fibrillation Status: Acute Plan Hepatic encephalopathy, hyperammonemia, Crawley liver cirrhosis Patient has history of CRAWLEY liver cirrhosis, present ED with chief complaint of confusion CT head shows no acute intracranial issues In the ED, patient was found have hyperammonemia Suspected hepatic encephalopathy superimposed was electrolyte disorder, dehydration Increased lactulose p.o from 20-30 g t.i.d. p.o. and add rifaximin p.o. 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 Patient does not have bowel movement yesterday and today Exam Narrative: GENERAL: Pleasant, in no acute distress. Well-nourished. - EYES: EOMI. Anicteric. Jaundice - HENT: Moist mucous membranes. - LUNGS: Clear to auscultation bilaterally, no wheezing, rhonchi, or rales. - CARDIOVASCULAR: Regular rate and rhythm. No murmur. No JVD. - ABDOMEN: Soft, non-tender and non-distended. No palpable masses. - EXTREMITIES: No edema. Peripheral pulses 2+. Non-tender. - NEUROLOGIC: No focal neurological deficits. CN II-XII grossly intact. - PSYCHIATRIC: Awake, Alert and oriented x 3. Appropriate mood and affect. - SKIN: No rashes or lesions. Warm. - LYMPH: No cervical lymphadenopathy. Objective Data Vital Signs Vital Signs: Vital Signs - 24 hr 03/18/23 12:52 03/18/23 12:54 03/18/23 13:00 Temperature Pulse Rate 68 68 Respiratory Rate 16 13 14 Blood Pressure 109/74 Pulse Oximetry 100 100 100 Oxygen Delivery 03/18/23 13:01 03/18/23 13:15 03/18/23 13:16 Temperature Pulse Rate 68 71 70 Respiratory Rate 14 13 12 Blood Pressure 94/54 L 102/47 L Pulse Oximetry 100 100 100 Oxygen Delivery 03/18/23 13:30 03/18/23 13:31 03/18/23 13:46 Temperature Pulse Rate 67 67 67 Respiratory Rate 14 13 12 Blood Pressure 100/66 113/74 Pulse Oximetry 100 100 100 Oxygen Delivery 03/18/23 15:14 03/18/23 15:16 03/18/23 15:32 Temperature Pulse Rate 70 69 72 Respiratory Rate 15 13 17 Blood Pressure 119/81 133/89 114/73 Pulse Oximetry 100 100 100 Oxygen Delivery 03/18/23 15:47 03/18/23 16:15 03/18/23 16:33 Temperature
[2023-03-19] MEDS: PANTOPRAZOLE 40 MG TABLET PO (08:22)
[2023-03-19] MEDS: SIMETHICONE 80 MG TAB.CHEW PO (08:22)
[2023-03-19] MEDS: APIXABAN 5 MG TABLET PO ×2 (08:23→20:13)
[2023-03-19] MEDS: AMIODARONE HCL 200 MG TABLET 400 MG PO (08:23)
[2023-03-19] MEDS: LACTULOSE 20 GM/30 ML UDC PO (08:23)
[2023-03-19] MEDS: METOPROLOL TARTRATE 25 MG TABLET PO ×2 (08:23→20:13)
[2023-03-19] MEDS: ASPIRIN 81 MG CHEWABLE TABLET PO (08:23)
[2023-03-19] MEDS: rifAXIMin 550 MG TABLET PO ×2 (08:32→20:13)
[2023-03-19] MEDS: SODIUM CHLORIDE 0.9% IV 1,000 ML 100 ML IV CONT ×2 (08:33→20:12)
--- NOTE | 2023-03-19 11:52 | PM.CNNEP ---
Assessment and Plan Assessment and plan (1) EMMY (acute kidney injury): Code(s): N17.9 - Acute kidney failure, unspecified Status: Acute Assessment and Plan: suspicion falls on volume depletion diuretics on hold trial of IVFs check urine studies, CPK, and renal ultrasound follow trend of repeat labs and UOP (2) Stage 3a chronic kidney disease: Code(s): N18.31 - Chronic kidney disease, stage 3a Status: Chronic Assessment and Plan: baseline creatinine runs around 1.5mg/dl inthe last 5 - 6 months suspect some left over CKD from his EMMY/ARF given the multitude of insults (high dose diuretics, ATN, dialysis, AIN...etc) he has had since June 2022 (3) Metabolic acidosis: Code(s): E87.20 - Acidosis, unspecified Status: Acute Assessment and Plan: presumably secondary to EMMY/ARF follow trend if persists, consider oral sodium bicarbonate (4) Hyperammonemia: Code(s): E72.20 - Disorder of urea cycle metabolism, unspecified Status: Acute Assessment and Plan: as noted by admission testing resume lactulose follow trend of repeat ammonia levels supportive care (5) Altered mental status: Code(s): R41.82 - Altered mental status, unspecified Status: Acute Assessment and Plan: slow improvement noted likely secondary to #4 CT of the head with no acute abnormality (6) CRAWLEY (nonalcoholic steatohepatitis): Code(s): K75.81 - Nonalcoholic steatohepatitis (CRAWLEY) Status: Chronic Assessment and Plan: chronic issue/problems no change at this time I will continue follow the patient with you while he remains hospitalized to make further recommendations as deemed necessary. Thank you for allowing me to participate in the care this patient. History of Present Illness Reason for Consult Consult date: 03/19/23 Reason for consult: acute renal failure (on chronic kidney disease) Chief Complaint Chief complaint: Hyperammonemia, EMMY History of Present Illness Narrative: The patient is a 52-year-old male with a past medical history as outlined below who presented to [facility] Emergency room due to altered mental status. The patient was in usual state of health until his family noticed that he had been having issues / problems with increased lethargy, confusion and mental fog. As this issue seems to persist despite conservative medical therapy and the concern that this may relate it to hepatic encephalopathy as he has had this issue/problem before when he sometimes does not take his lactulose as prescribed, he presented to [facility] Emergency room for further assessment. Workup and evaluation in the emergency room demonstrated the patient to be hemodynamically stable but clearly altered with regard to his mentation. Routine blood tests were significant for acute kidney injury/ acute renal failure on top of his baseline kidney disease with a BUN of 47 and a creatinine of 3.2 but with no other critical electrolyte abnormalities. His ammonia level was also elevated 108. imaging studies include a CT scan of his head did not demonstrate any acute intracranial pathology. Given these laboratory abnormalities and his altered mental status, he was initiated on lactulose therapy as well as IV fluids and he was subsequently admitted to the hospital for further evaluation and therapy. Renal consultation was requested due to his acute kidney injury/acute renal failure on top of his chronic kidney disease . The patient is somewhat familiar to me as I took care of him when he was at [facility] several months ago. At that time, I was seeing him for acute kidney injury/ acute renal failure secondary to his hospitalization prior to his transfer to [facility]. It was felt that he probably had some left over chronic kidney disease from his acute kidney injury/ acute renal failure and his baseline cre
[2023-03-19] MEDS: LACTULOSE 20 GM/30 ML UDC 30 GM PO ×2 (12:28→17:30)
--- NOTE | 2023-03-19 13:12 | PM.CNGS ---
Assessment and Plan Assessment and plan (1) Left groin mass: Code(s): R19.09 - Other intra-abdominal and pelvic swelling, mass and lump Status: Acute Assessment and Plan: Findings of a left groin mass that has been present for months, since at least November. This is likely a hematoma. Patient's denies having this worked up previously and they are not aware of any previous trauma to this area or obvious cause for the hematoma. There are no signs of infection and the overlying skin appears healthy. This area is not painful and it is completely nontender. We will have him follow-up with Dr. Ireland in the office 1 month after discharge. We can monitor this and decide on any further workup as an outpatient once his acute issues have resolved. Thank you for allowing us to see the patient in consultation. Please call with any future surgical questions or concerns. (2) Hepatic encephalopathy: Code(s): K76.82 - Hepatic encephalopathy Status: Acute (3) Acute kidney injury superimposed on chronic kidney disease: Code(s): N17.9 - Acute kidney failure, unspecified; N18.9 - Chronic kidney disease, unspecified Status: Acute (4) Dehydration: Code(s): E86.0 - Dehydration Status: Acute (5) Atrial fibrillation: Qualifiers: Atrial fibrillation type: paroxysmal Qualified Code(s): I48.0 - Paroxysmal atrial fibrillation Code(s): I48.91 - Unspecified atrial fibrillation Status: Acute (6) Anticoagulant long-term use: Code(s): Z79.01 - long term care pharmacist (current) use of anticoagulants Status: Acute (7) Thrombocytopenia: Code(s): D69.6 - Thrombocytopenia, unspecified Status: Acute Plan I have discussed the patient's case and plan of care with Dr. Ireland. History of Present Illness Consult details Consult date: 03/19/23 Reason for consult: other (Left inguinal subcutaneous mass) Requesting physician: Edith Barney MD Narrative: This is a 52-year-old man who we have been asked to see in surgical consultation for a left inguinal subcutaneous mass. He has a history of CRAWLEY cirrhosis with esophageal varices, paroxysmal atrial fibrillation on chronic anticoagulation, recent prosthetic aortic valve replacement at [facility] in November 2022 due to complicated aortic valve endocarditis, multiple other medical problems, and debility following a hospitalization at [facility] for sepsis in June of 2022. He currently lives at home with his , who provides full care for her . He is nonambulatory and requires Fabrizio lift transfers at home. He does work from his computer. He is a poor historian and his history is obtained from him and discussion with his via the phone with his permission. Over the past few days, he has become confused and lethargic. This is consistent with previous occasions when his ammonia was elevated. He presented to the ER yesterday for evaluation of altered mental status. In the ER, labs were significant for sodium 126, carbon dioxide 20, BUN 47, creatinine 3.2, ammonia 108, ALT 55, alk phos 167, INR 1.9, PT 22.7, PTT 40.4, hgb 11.5, platelets 115,000. He is currently taking apixaban, which he was switched to at the time of his prosthetic valve replacement. He was previously on warfarin for atrial fibrillation. CT scan of the abdomen and pelvis showed a 4.1 x 7 cm left inguinal soft tissue mass with differential diagnosis including lymphadenopathy, metastasis, hematoma or pseudoaneurysm, prominent cirrhosis, status post cholecystectomy, prominent irregularity and sclerosing of the opposed vertebral endplates at L3-4 consider diskitis or osteomyelitis, degenerative disc disease the lumbar spine, anterolisthesis at 4-5, and diffuse idiopathic skeletal hyperostosis of the thoracic spine. Soft tissue ultrasound of the left groin showed an 8.6 cm subcutaneous mass in the anterior proximal left thigh which may be a hematoma or less likely a ne
--- NOTE | 2023-03-19 13:35 | PC.NURSE ---
On 03/19/23, the student, [Payton Ramirez], provided care and completed [facility] documentation on this patient. I have reviewed the student's documentation and agree with the findings.
[2023-03-19 15:33] LABS: Ammonia 101 umol/L (9-30)
--- NOTE | 2023-03-19 16:44 | PC.NURSE ---
Patient had xlg Bm just prior to administration of enema MD aware no need for enema at this time
[2023-03-19 22:25] LABS: Creatinine Urine 89.8 mg/dL; Urea Random Urine 585 MG/DL
[2023-03-19 22:26] LABS: Eosinophil Urine None Seen % (None Seen); Urine Eos QC 2nd Tech Confirmed
[2023-03-19 22:27] LABS: Sodium Urine Random 27 meq/L
[2023-03-19 22:39] LABS: Total Protein Urine Random < 5 mg/dL
[2023-03-19 22:40] LABS: Ur Ttl Prot Creatinine Ratio < 0.06 mg/mg (0-0.20)
[2023-03-20] VITALS (11 sets, daily range): BP systolic 92–105; BP diastolic 43–63; PULSE 52–67; RESP 17–20; TEMP 36.2–36.3; O2SAT 100
[2023-03-20 05:37] LABS: Basophils Absolute Auto 0.1 K/mm3 (0.0-0.1); Basophils Percent Auto 1.1 % (0.2-1.2); Eosinophils Absolute Auto 0.2 K/mm3 (0-0.3); Eosinophils Percent Auto 2.7 % (0-4.4); Hematocrit 29.4 % (42.0-52.0); Immature Granulocyte Absolute 0.01 K/mm3 (0.00-0.031); Immature Granulocyte Percent A 0.2 % (0-0.5); Lymphocytes Absolute Auto 1.26 K/mm3 (0.9-3.2); Lymphocytes Percent Auto 22.7 % (18.3-44.2); Mean Corpuscular Hemoglobin 31.5 pg (26-34); Mean Corpuscular Volume 92.7 fl (80-100); Mean Platelet Volume 10.8 fl (7.4-10.4); Monocytes Absolute Auto 0.8 K/mm3 (0.1-0.6); Monocytes Percent Auto 14.1 % (2.6-8.5); Neutrophils Absolute Auto 3.3 K/mm3 (1.3-6.7); Neutrophils Percent Auto 59.2 % (45.5-73.1); Platelet Count Result 114 k/mm3 (150-375); Red Blood Count 3.17 M/mm3 (4.6-6.20); Red Cell Distribution Width 14.6 % (11.5-14.5); White Blood Count 5.5 K/mm3 (4.5-10.0)
[2023-03-20 05:47] LABS: INR 1.9; Prothrombin Time 23.1 Seconds (11.1-14.7)
[2023-03-20 05:49] LABS: Alanine Aminotransferase 43 U/L (6-50); Albumin Level 3.4 g/dL (3.5-5.1); Alkaline Phosphatase 151 U/L (38-126); Anion Gap 9 mmol/L (8-16); Aspartate Amino Transferase 45 U/L (17-59); Bilirubin,Total 1.2 mg/dL (0.2-1.3); Blood Urea Nitrogen 40 mg/dL (9-20); Calcium 8.9 mg/dL (8.4-10.2); Carbon Dioxide 17 mmol/L (22-30); Chloride 104 mmol/L (98-107); Creatine Kinase 51 U/L (55-170); Estimated CRCL calculation 40 ml/min; Estimated Glomerular Filt Rate 25; Glucose 76 mg/dL (65-110); Potassium 3.6 mmol/L (3.4-5.0); Sodium 130 mmol/L (137-145)
[2023-03-20] MEDS: SODIUM CHLORIDE 0.9% IV 1,000 ML 100 ML IV CONT ×2 (06:23→20:37)
[2023-03-20 07:38] LABS: Ammonia 13 umol/L (9-30)
--- NOTE | 2023-03-20 07:38 | PM.IMPN ---
Progress Note: A&P Assessment and Plan (1) Encephalopathy acute: Code(s): G93.40 - Encephalopathy, unspecified Status: Acute (2) Hyperammonemia: Code(s): E72.20 - Disorder of urea cycle metabolism, unspecified Status: Acute (3) CRAWLEY (nonalcoholic steatohepatitis): Code(s): K75.81 - Nonalcoholic steatohepatitis (CRAWLEY) Status: Acute (4) Cirrhosis: Qualifiers: Ascites presence: without ascites Hepatic cirrhosis type: unspecified hepatic cirrhosis Qualified Code(s): K74.60 - Unspecified cirrhosis of liver Code(s): K74.60 - Unspecified cirrhosis of liver Status: Acute (5) Hepatic encephalopathy: Code(s): K76.82 - Hepatic encephalopathy Status: Acute (6) Acute kidney injury superimposed on chronic kidney disease: Code(s): N17.9 - Acute kidney failure, unspecified; N18.9 - Chronic kidney disease, unspecified Status: Acute (7) Atrial fibrillation: Qualifiers: Atrial fibrillation type: paroxysmal Qualified Code(s): I48.0 - Paroxysmal atrial fibrillation Code(s): I48.91 - Unspecified atrial fibrillation Status: Acute (8) Discitis of lumbar region: Code(s): M46.46 - Discitis, unspecified, lumbar region Status: Acute Plan Hepatic encephalopathy, hyperammonemia, Crawley liver cirrhosis Patient has history of CRAWLEY liver cirrhosis, present ED with chief complaint of confusion CT head shows no acute intracranial issues In the ED, patient was found have hyperammonemia Suspected hepatic encephalopathy superimposed was electrolyte disorder, dehydration Increased lactulose p.o from 20-30 g t.i.d. p.o. and add rifaximin p.o. 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 Abnormal CT finding ?4.1 x 7 cm left inguinal soft tissue mass; diffusion diagnosis includes lymphadenopathy, metastasis, hematoma or pseudoaneurysm Consult general surgeon for evaluation treatment General surgeon considers the inguinal mass likely hematoma, general surgeon will have him follow-up with Dr. Ireland in the office 1 month after discharge. Lumbar diskitis Radiologist reports prominent irregularity and sclerosis of the apposing vertebral endplates at L3-4; consider discitis, osteomyelitis Ordered lumbar MRI, patient cannot perform MRI because of metal clips in the heart Consult neurosurgeon, recommends to transfer to tertiary hospital for further evaluation and treatment Current patient is afebrile, blood pressure stable History of aortic valve replacement Denies chest pain elevated troponin close to baseline, possible due to worsening kidney function GERD Continue PPI SAIGE Continue BiPAP in the night Subjective Date/time seen: 03/20/23 07:38 Interval history: A saw and examined patient today, mental status is improving. has bowel movements. Patient denies back pain Exam Narrative: GENERAL: Pleasant, in no acute distress. Well-nourished. - EYES: EOMI. Anicteric. Jaundice - HENT: Moist mucous membranes. - LUNGS: Clear to auscultation bilaterally, no wheezing, rhonchi, or rales. - CARDIOVASCULAR: Regular rate and rhythm. No murmur. No JVD. - ABDOMEN: Soft, non-tender and some distended. No palpable masses. - EXTREMITIES: No edema. Peripheral pulses 2+. Non-tender. Some low backwinder - NEUROLOGIC: No focal neurological deficits. CN II-XII grossly intact. - PSYCHIATRIC: Awake, Alert and oriented x 3. Appropriate mood and affect. - SKIN: No rashes or lesions. Warm. - LYMPH: No cervical lymphadenopathy. Objective Data Vital Signs Vital Signs: Vital Signs - 24 hr 03/19/23 08:23 03/19/23 08:23 03/19/23 08:24
[2023-03-20] MEDS: PANTOPRAZOLE 40 MG TABLET PO (10:35)
[2023-03-20] MEDS: rifAXIMin 550 MG TABLET PO ×2 (10:35→20:38)
[2023-03-20] MEDS: AMIODARONE HCL 200 MG TABLET 400 MG PO (10:35)
[2023-03-20] MEDS: APIXABAN 5 MG TABLET PO ×2 (10:35→20:38)
[2023-03-20] MEDS: ASPIRIN 81 MG CHEWABLE TABLET PO (10:35)
[2023-03-20] MEDS: LACTULOSE 20 GM/30 ML UDC 30 GM PO ×3 (10:36→20:39)
--- NOTE | 2023-03-20 12:01 | PM.PNNEP ---
Progress Note: A&P Assessment and Plan (1) EMMY (acute kidney injury): Code(s): N17.9 - Acute kidney failure, unspecified Status: Acute Assessment and Plan: improvement noted suspicion falls on volume depletion diuretics on hold on IVFs evaluation to date: urine electrolytes are prerenal urine eosinophils negative renal ultrasound without obstruction CPK normal no proteinuria follow trend of repeat labs and UOP (2) Stage 3a chronic kidney disease: Code(s): N18.31 - Chronic kidney disease, stage 3a Status: Chronic Assessment and Plan: baseline creatinine runs around 1.5mg/dl inthe last 5 - 6 months suspect some left over CKD from his EMMY/ARF given the multitude of insults (high dose diuretics, ATN, dialysis, AIN...etc) he has had since June 2022 (3) Metabolic acidosis: Code(s): E87.20 - Acidosis, unspecified Status: Acute Assessment and Plan: presumably secondary to EMMY/ARF follow trend if persists, consider oral sodium bicarbonate (4) Discitis of lumbar region: Code(s): M46.46 - Discitis, unspecified, lumbar region Status: Acute Assessment and Plan: as noted by recent imaging prominent irregularity and sclerosis of the apposing vertebral endplates at L3-4; consider discitis, osteomyelitis unable to do lumbar MRI due to metal clips in the heart Neurosurgery recommends to transfer to tertiary hospital for further evaluation and treatment (5) Hyperammonemia: Code(s): E72.20 - Disorder of urea cycle metabolism, unspecified Status: Acute Assessment and Plan: as noted by admission testing resumed on lactulose ammonia levels improving supportive care (6) Altered mental status: Code(s): R41.82 - Altered mental status, unspecified Status: Acute Assessment and Plan: slow improvement noted if not resolved likely secondary to #4 CT of the head with no acute abnormality (7) CRAWLEY (nonalcoholic steatohepatitis): Code(s): K75.81 - Nonalcoholic steatohepatitis (CRAWLEY) Status: Chronic Assessment and Plan: chronic issue/problems no change at this time Will continue to follow Subjective Date/time seen: 03/20/23 12:01 Interval history: Follow-up for acute kidney injury/acute renal failure on chronic kidney disease. No new issues or concerns reported at this time; feels reasonably well and in no apparent distress; recent imaging finding noted/reviewed; no other issues/events overnight or earlier this morning. Exam Narrative: General: D/WN male in NAD Heart: normal S1 and S2; no rub Lungs: clear anteriorly Abdomen: soft, nontender, nondistended, positive bowel sounds Extremities: no cyanosis or clubbing; no edema Skin: warm and dry Objective Data Vital Signs Vital Signs: Vital Signs Temp Pulse Resp BP Pulse Ox O2 Del Method 03/20/23 12:00 97.2 F L 60 17 105/59 L 100 03/20/23 10:30 100/43 L 03/20/23 10:35 61 03/20/23 05:01 97.3 F L 55 L 18 101/63 100 03/20/23 04:00 57 L 03/20/23 00:00 52 L 03/19/23 21:04 99 Room Air 03/19/23 20:00 57 L 03/19/23 20:12 97.2 F L 62 20 122/64 100 03/19/23 19:53 58 L 16 96 Room Air Intake/Output Intake/Output: Intake & Output 03/17/23 03/18/23 03/19/23 03/20/23 23:59 23:59 23:59 23:59 Intake Total 1000 2080 1870 Output Total 1450 700 Balance 7564 871 1235 Meds/Results Medications: Active Medications Generic Name Dose Route Start Last Admin Trade Name Freq PRN Reason Stop Dose Admin Amiodarone HCl 400 mg 03/19/23 09:00 03/20/23 10:35 Amiodarone Hcl 200 Mg Tablet PO 04/18/23 08:59 400 mg DAILY CAROL Administration Apixaban 5 mg 03/19/23 09:00 03/20/23 10:35 Apixaban 5 Mg Tablet PO 5 mg Q12HR CAROL Administration Aspirin 81 mg 03/19/23 09:00 03/20/23 10:35 Aspirin 81 M
--- NOTE | 2023-03-20 12:01 | P.PNNP_ITS ---
Progress Note: A&P Assessment and Plan (1) EMMY (acute kidney injury): Code(s): N17.9 - Acute kidney failure, unspecified Status: Acute Assessment and Plan: * improvement noted * suspicion falls on volume depletion * diuretics on hold * on IVFs * evaluation to date: * urine electrolytes are prerenal * urine eosinophils negative * renal ultrasound without obstruction * CPK normal * no proteinuria * follow trend of repeat labs and UOP (2) Stage 3a chronic kidney disease: Code(s): N18.31 - Chronic kidney disease, stage 3a Status: Chronic Assessment and Plan: * baseline creatinine runs around 1.5mg/dl inthe last 5 - 6 months * suspect some left over CKD from his EMMY/ARF given the multitude of insults (high dose diuretics, ATN, dialysis, AIN...etc) he has had since June 2022 (3) Metabolic acidosis: Code(s): E87.20 - Acidosis, unspecified Status: Acute Assessment and Plan: * presumably secondary to EMMY/ARF * follow trend * if persists, consider oral sodium bicarbonate (4) Discitis of lumbar region: Code(s): M46.46 - Discitis, unspecified, lumbar region Status: Acute Assessment and Plan: * as noted by recent imaging * prominent irregularity and sclerosis of the apposing vertebral endplates at L3-4; consider discitis, osteomyelitis * unable to do lumbar MRI due to metal clips in the heart * Neurosurgery recommends to transfer to tertiary hospital for further evaluation and treatment (5) Hyperammonemia: Code(s): E72.20 - Disorder of urea cycle metabolism, unspecified Status: Acute Assessment and Plan: * as noted by admission testing * resumed on lactulose * ammonia levels improving * supportive care (6) Altered mental status: Code(s): R41.82 - Altered mental status, unspecified Status: Acute Assessment and Plan: * slow improvement noted if not resolved * likely secondary to #4 * CT of the head with no acute abnormality (7) CRAWLEY (nonalcoholic steatohepatitis): Code(s): K75.81 - Nonalcoholic steatohepatitis (CRAWLEY) Status: Chronic Assessment and Plan: * chronic issue/problems * no change at this time Will continue to follow Subjective Date/time seen: 03/20/23 12:01 Interval history: Follow-up for acute kidney injury/acute renal failure on chronic kidney disease. No new issues or concerns reported at this time; feels reasonably well and in no apparent distress; recent imaging finding noted/reviewed; no other issues/events overnight or earlier this morning. Exam Narrative: General: D/WN male in NAD Heart: normal S1 and S2; no rub Lungs: clear anteriorly Abdomen: soft, nontender, nondistended, positive bowel sounds Extremities: no cyanosis or clubbing; no edema Skin: warm and dry Objective Data Vital Signs Vital Signs: Vital Signs Temp Pulse Resp BP Pulse Ox O2 Del Method 03/20/23 12:00 97.2 F L 60 17 105/59 L 100 03/20/23 10:30 100/43 L 03/20/23 10:35 61 03/20/23 05:01 97.3 F L 55 L 18 101/63 100 03/20/23 04:00 57 L 03/20/23 00:00 52 L 03/19/23 21:04 99 Room Air 03/19/23 20:00 57 L 03/19/23 20:12 97.2 F L 62 20 122/64 100 03/19/23 19:53
--- NOTE | 2023-03-20 13:01 | WPDCN ---
HPI Data of Consult Date/Time: 03/20/23 13:01 Requesting Physician: Danny Melchor MD Primary Care Provider: Paxton Disla MD Consult Narrative Reason for consult: Possible Lumbar discitis/osteomyelitis Narrative: Vinay Chawla is a 52 year old male with significant history for having sepsis/bacteremia in July of last year from suspect left LE ulcer/wound source, this also resulted in MSSA enodcarditis/aortic insufficiency s/p aortic valve replacement in Nov 2022. The patient reports having an infection in his lumbar spine during his hospitalizationl, and had a lumbar biopsy at [facility]. He is unsure at what level this was at. He presented to [facility] ER for confusion over the past several days, he could not remember his phone password and was overall feeling foggy . We were consulted after a CT abdomen and pelvis revealed L3 and L4 erosion endplate changes concerning for discitis/osteomyelitis. The patient denies having any low back pain recently, nor any radiating legs pains or sensory changes. He does report baseline left lower extremity weakness since his last hospitalization that has been slowly improving. He was admitted with Na findings of 126. His admitting WBC was 6.0. Patient denies any chills, fever, or body aches prior to this admission. He's been off antibiotics for a few months . Patient also with hx for hepatic cirrhosis, and CRAWLEY. He's not had any dedicated spine imaging, current MRI lumbar spine with/without contrast is pending. Review of Systems Review of Systems: All systems reviewed & are unremarkable except as noted in HPI and below PMFSH Past Medical History Medical History (Updated 03/20/23 @ 07:41 by Gayatri Cisneros MD) ADD (attention deficit disorder) Adenomatous colon polyp BMI 50.0-59.9, adult Cirrhosis Decreased libido Endocarditis of aortic valve Epigastric pain Esophageal varices GERD (gastroesophageal reflux disease) Hypertension CRAWLEY (nonalcoholic steatohepatitis) Obesity, morbid, BMI 40.0-49.9 SAIGE (obstructive sleep apnea) Right rotator cuff tear Thrombocytopenia Surgical History Surgical History History of aortic valve replacement with bioprosthetic valve History of cardiac catheterization History of cholecystectomy History of left knee surgery Family History Family History Father Family history of diabetes mellitus in first degree relative Hypertension Acute myocardial infarction Mother Family history of thyroid disease Social History Social History Smoking status: Never smoker Alcohol intake: never Drinks per week: 12 Alcohol use details: socially Substance use: never Substance use type: does not use Do You Feel Safe in your Home?: Yes Lack of Transportation: No Lack of Food: Never True Current Housing: I Have Housing Concerned About Future Housing: No Difficulty Paying Gas/Electric Bills: No Difficulty Paying for Meds: No Currently Unemployed: No Education: Bachelor's Degree Difficulty w/ Childcare or Family Care: No Living arrangements: with family Spiritual care concerns: No Meds Home Medications and Allergies Home Medications Medication Instructions Recorded Confirmed Type aspirin 81 mg chewable tablet 1 tablet PO DAILY 01/26/23 03/18/23 History metoprolol tartrate 25 mg tablet 25 mg PO BID #60 tabs 02/10/23 03/18/23 Rx apixaban 5 mg tablet (Eliquis) 5 mg PO BID #60 tabs 03/08/23 03/18/23 Rx bumetanide 2 mg tablet 2 mg PO BID #60 tabs 03/08/23 03/18/23 Rx Antacid-Simethicone 1 tab-cap PO DAILY 03/18/23 03/18/23 History amiodarone 400 mg tablet 400 mg PO DAILY 03/18/23 03/18/23 History lactulose 10 gram/15 mL oral 30 ml PO TID 03/18/23 03/18/23 History solution omeprazole magnesium 20 mg 20 mg PO DAILY 03/18/23 03/18/23
--- NOTE | 2023-03-20 13:30 | PC.NURSE ---
call from MRI stating the records they reviewed from [facility] were not detailed enough with chest plate information for MRI
--- NOTE | 2023-03-20 15:40 | PM.IMPN ---
Subjective Date/time seen: 03/20/23 15:40 Objective Data Vital Signs Vital Signs: Vital Signs - 24 hr 03/19/23 16:00 03/19/23 19:53 03/19/23 20:12 Temperature 97.2 F L Pulse Rate 58 L 58 L 62 Respiratory Rate 16 20 Blood Pressure 122/64 Pulse Oximetry 96 100 Oxygen Delivery Room Air 03/19/23 20:00 03/19/23 21:04 03/20/23 00:00 Temperature Pulse Rate 57 L 52 L Respiratory Rate Blood Pressure Pulse Oximetry 99 Oxygen Delivery Room Air 03/20/23 04:00 03/20/23 05:01 03/20/23 10:35 Temperature 97.3 F L Pulse Rate 57 L 55 L 61 Respiratory Rate 18 Blood Pressure 101/63 Pulse Oximetry 100 Oxygen Delivery 03/20/23 10:30 Temperature Pulse Rate Respiratory Rate Blood Pressure 100/43 L Pulse Oximetry Oxygen Delivery Intake/Output Intake/Output: Intake & Output 03/17/23 03/18/23 03/19/23 03/20/23 23:59 23:59 23:59 23:59 Intake Total 1000 2080 1630 Output Total 1450 700 Balance 1000 630 930 Meds/Results Medications: Active Medications Generic Name Dose Route Start Last Admin Trade Name Freq PRN Reason Stop Dose Admin Amiodarone HCl 400 mg 03/19/23 09:00 03/20/23 10:35 Amiodarone Hcl 200 Mg Tablet PO 04/18/23 08:59 400 mg DAILY CAROL Administration Apixaban 5 mg 03/19/23 09:00 03/20/23 10:35 Apixaban 5 Mg Tablet PO 5 mg Q12HR CAROL Administration Aspirin 81 mg 03/19/23 09:00 03/20/23 10:35 Aspirin 81 Mg Chewable Tablet PO 81 mg DAILY CAROL Administration Sodium Chloride 1,000 mls @ 125 mls/hr 03/19/23 08:25 03/20/23 06:23 Normal Saline Iv IV CONT 100 mls/hr .Q8H CAROL Administration Lactulose 30 gm 03/19/23 13:00 03/20/23 10:36 Lactulose 20 Gm/30 Ml Udc PO 30 gm TID CAROL Administration Metoprolol Tartrate 25 mg 03/19/23 09:00 03/19/23 20:13 Metoprolol Tartrate 25 Mg Tablet PO 25 mg Q12HR CAROL Administration Pantoprazole Sodium 40 mg 03/19/23 09:00 03/20/23 10:35 Pantoprazole 40 Mg Tablet PO 04/18/23 08:59 40 mg DAILY CAROL Administration Rifaximin 550 mg 03/19/23 09:00 03/20/23 10:35 Rifaximin 550 Mg Tablet PO 550 mg Q12HR CAROL Administration Simethicone 80 mg 03/19/23 09:00 03/19/23 08:22 Simethicone 80 Mg Tab.Chew PO 04/18/23 08:59 80 mg DAILY CAROL Administration Radiology Results: ITS Impressions Head CT 03/18/23 14:02 IMPRESSION: Limited examination due to motion artifact No acute intracranial finding or skull fracture is detected Abdomen/Pelvis CT 03/18/23 15:12 IMPRESSION: 4.1 x 7 cm left inguinal soft tissue mass; diffusion diagnosis includes lymphadenopathy, metastasis, hematoma or pseudoaneurysm Prominent cirrhosis Status post cholecystectomy 5 mm nonobstructing lower pole left renal calculus Prominent irregularity and sclerosis of the apposing vertebral endplates at L3-4; consider discitis, osteomyelitis Multilevel degenerative disc disease of the lumbar spine Grade 1 anterolisthesis at L4-5 Diffuse idiopathic skeletal hyperostosis of the thoracic spine ADDENDUM: 03/19/23 0775 ADDENDUM: Since the prior study on 06/11/2021 there has been significant progression in severe disc height loss at L1-L4 with extensive endplate erosions at both sides of the disc which is 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 No appreciable surrounding paravertebral stranding or soft tissue abscess appreciated. Findings were discussed with Suma Coffman, the nurse caring for the patient, at 12:30 PM on 03/19/2023. Soft Tissue Ultrasound 03/18/23 17:07 IMPRESSION: 1. 8.6 cm subcutaneous mass in the anterior proximal left thigh, which may be a hematoma or less likely a neoplasm. Renal Ultrasound 03/19/23 14:19 IMPRESSION: 1. 6 mm stone at the lower pole of the left kidney without hydronephrosis. Labs Labs: Laboratory Results - last 24 hr 03/19/23 03/20/23 03/20/23 21:58 04:57 07:07 WBC 5.5
--- NOTE | 2023-03-20 16:10 | PC.NURSE ---
[facility] medical records returned call, she states she sent all relevant information that they have available from procedure in question from 11/2022, I faxed entire record back to MRI dept to see if they could see the information they needed in those records
--- NOTE | 2023-03-20 18:45 | PC.NURSE ---
2nd call to pharmacy for missing lactulose dose
[2023-03-20] MEDS: METOPROLOL TARTRATE 25 MG TABLET PO (20:38)
[2023-03-21] VITALS (12 sets, daily range): BP systolic 96–99; BP diastolic 56–60; PULSE 50–77; RESP 16–18; TEMP 36–36.8; O2SAT 100
[2023-03-21] MEDS: SODIUM CHLORIDE 0.9% IV 1,000 ML 100 ML IV CONT ×2 (04:55→14:09)
[2023-03-21 05:21] LABS: Basophils Absolute Auto 0.1 K/mm3 (0.0-0.1); Basophils Percent Auto 1.1 % (0.2-1.2); Eosinophils Absolute Auto 0.1 K/mm3 (0-0.3); Hematocrit 27.7 % (42.0-52.0); Hemoglobin 9.3 g/dL (14.0-18.0); Immature Granulocyte Absolute 0.02 K/mm3 (0.00-0.031); Immature Granulocyte Percent A 0.4 % (0-0.5); Immature Platelet Fraction Pct 2.5 % (0.9-11.2); Lymphocytes Absolute Auto 1.06 K/mm3 (0.9-3.2); Lymphocytes Percent Auto 22.4 % (18.3-44.2); Mean Corpuscular HGB Conc 33.6 g/dl (32-36); Mean Corpuscular Hemoglobin 31.4 pg (26-34); Mean Corpuscular Volume 93.6 fl (80-100); Mean Platelet Volume 10.4 fl (7.4-10.4); Monocytes Absolute Auto 0.7 K/mm3 (0.1-0.6); Monocytes Percent Auto 14.1 % (2.6-8.5); Neutrophils Absolute Auto 2.8 K/mm3 (1.3-6.7); Platelet Count Result 89 k/mm3 (150-375); Red Blood Count 2.96 M/mm3 (4.6-6.20); Red Cell Distribution Width 14.9 % (11.5-14.5); White Blood Count 4.7 K/mm3 (4.5-10.0)
[2023-03-21 05:32] LABS: Alanine Aminotransferase 36 U/L (6-50); Albumin Level 3.2 g/dL (3.5-5.1); Alkaline Phosphatase 126 U/L (38-126); Anion Gap 5 mmol/L (8-16); Aspartate Amino Transferase 42 U/L (17-59); Bilirubin,Total 0.7 mg/dL (0.2-1.3); Blood Urea Nitrogen 29 mg/dL (9-20); Calcium 8.5 mg/dL (8.4-10.2); Carbon Dioxide 20 mmol/L (22-30); Chloride 107 mmol/L (98-107); Estimated CRCL calculation 54 ml/min; Estimated Glomerular Filt Rate 35; Glucose 87 mg/dL (65-110); Potassium 3.7 mmol/L (3.4-5.0); Sodium 132 mmol/L (137-145)
[2023-03-21] MEDS: rifAXIMin 550 MG TABLET PO ×2 (09:15→20:47)
[2023-03-21] MEDS: AMIODARONE HCL 200 MG TABLET 400 MG PO (09:15)
[2023-03-21] MEDS: ASPIRIN 81 MG CHEWABLE TABLET PO (09:15)
[2023-03-21] MEDS: APIXABAN 5 MG TABLET PO ×2 (09:15→20:44)
[2023-03-21] MEDS: PANTOPRAZOLE 40 MG TABLET PO (09:18)
[2023-03-21] MEDS: SIMETHICONE 80 MG TAB.CHEW PO (09:18)
--- NOTE | 2023-03-21 09:36 | PC.NURSE ---
spoke to [facility], patient still on transfer list. will check back later for updates and status.
[2023-03-21] MEDS: LACTULOSE 20 GM/30 ML UDC 30 GM PO ×4 (09:45→20:45)
--- NOTE | 2023-03-21 10:54 | PM.IMPN ---
Progress Note: A&P Assessment and Plan (1) Encephalopathy acute: Code(s): G93.40 - Encephalopathy, unspecified Status: Acute (2) Hyperammonemia: Code(s): E72.20 - Disorder of urea cycle metabolism, unspecified Status: Acute (3) CRAWLEY (nonalcoholic steatohepatitis): Code(s): K75.81 - Nonalcoholic steatohepatitis (CRAWLEY) Status: Acute (4) Cirrhosis: Qualifiers: Ascites presence: without ascites Hepatic cirrhosis type: unspecified hepatic cirrhosis Qualified Code(s): K74.60 - Unspecified cirrhosis of liver Code(s): K74.60 - Unspecified cirrhosis of liver Status: Acute (5) Hepatic encephalopathy: Code(s): K76.82 - Hepatic encephalopathy Status: Acute (6) Acute kidney injury superimposed on chronic kidney disease: Code(s): N17.9 - Acute kidney failure, unspecified; N18.9 - Chronic kidney disease, unspecified Status: Acute (7) Atrial fibrillation: Qualifiers: Atrial fibrillation type: paroxysmal Qualified Code(s): I48.0 - Paroxysmal atrial fibrillation Code(s): I48.91 - Unspecified atrial fibrillation Status: Acute (8) Discitis of lumbar region: Code(s): M46.46 - Discitis, unspecified, lumbar region Status: Acute Plan Hepatic encephalopathy, hyperammonemia, Crawley liver cirrhosis Patient has history of CRAWLEY liver cirrhosis, present ED with chief complaint of confusion CT head shows no acute intracranial issues In the ED, patient was found have hyperammonemia Suspected hepatic encephalopathy superimposed was electrolyte disorder, dehydration Increased lactulose p.o from 20-30 g t.i.d. p.o. and add rifaximin p.o. Neuro check Mental status improving, patient has BM 03/21; ammonia level is trending up, patient does not have bowel movement yesterday and today, increase lactulose 30 g to q.i.d. p.o. EMMY on CKD, hyponatremia Elevated BUN creatinine above baseline Albumin 4.1 Hold Bumex spironolactone Gentle IV fluid with normal saline Consult licensed pharmacist Creatinine BUN is trending down Renal ultrasound reports?6 mm stone at the lower pole of the left kidney without hydronephrosis. Abnormal CT finding ?4.1 x 7 cm left inguinal soft tissue mass; diffusion diagnosis includes lymphadenopathy, metastasis, hematoma or pseudoaneurysm Consult general surgeon for evaluation treatment General surgeon considers the inguinal mass likely hematoma, general surgeon will have him follow-up with Dr. Ireland in the office 1 month after discharge. Lumbar diskitis Radiologist reports prominent irregularity and sclerosis of the apposing vertebral endplates at L3-4; consider discitis, osteomyelitis Ordered lumbar MRI, patient cannot perform MRI because of metal clips in the heart Consult neurosurgeon, recommends to transfer to tertiary hospital for further evaluation and treatment Current patient is afebrile, blood pressure stable History of aortic valve replacement Denies chest pain elevated troponin close to baseline, possible due to worsening kidney function GERD Continue PPI SAIGE Continue BiPAP in the night Subjective Date/time seen: 03/21/23 10:54 Interval history: I saw and examined patient today patient today, patient still alert, oriented, but lipid lethargic. Patient did have bowel movement yesterday, repeat ammonia level trending up from 13 to 66 Exam Narrative: GENERAL: Pleasant, in no acute distress. Well-nourished. - EYES: EOMI. Anicteric. Jaundice - HENT: Moist mucous membranes. - LUNGS: Clear to auscultation bilaterally, no wheezing, rhonchi, or rales. - CARDIOVASCULAR: Regular rate and rhythm. No murmur. No JVD. - ABDOMEN: Soft, non-tender and some distended. No palpable masses. - EXTREMITIES: No edema. Peripheral pulses 2+. Non-tender. Some low barback - NEUROLOGIC: No focal neurological deficits. CN II-XII grossly intact. - PSYCHIATRIC: Awake, Alert and oriented x 3. Appropriate m
--- NOTE | 2023-03-21 11:17 | PM.PNNEP ---
Progress Note: A&P Assessment and Plan (1) EMMY (acute kidney injury): Code(s): N17.9 - Acute kidney failure, unspecified Status: Acute Assessment and Plan: ongoing improvement noted suspicion falls on volume depletion diuretics on hold on IVFs evaluation to date: urine electrolytes are prerenal urine eosinophils negative renal ultrasound without obstruction CPK normal no proteinuria follow trend of repeat labs and UOP (2) Stage 3a chronic kidney disease: Code(s): N18.31 - Chronic kidney disease, stage 3a Status: Chronic Assessment and Plan: baseline creatinine runs around 1.5mg/dl inthe last 5 - 6 months suspect some left over CKD from his EMMY/ARF given the multitude of insults (high dose diuretics, ATN, dialysis, AIN...etc) he has had since June 2022 (3) Metabolic acidosis: Code(s): E87.20 - Acidosis, unspecified Status: Acute Assessment and Plan: presumably secondary to EMMY/ARF follow trend if persists, consider oral sodium bicarbonate (4) Discitis of lumbar region: Code(s): M46.46 - Discitis, unspecified, lumbar region Status: Acute Assessment and Plan: as noted by recent imaging prominent irregularity and sclerosis of the apposing vertebral endplates at L3-4; consider discitis, osteomyelitis unable to do lumbar MRI due to metal clips in the heart Neurosurgery recommends to transfer to tertiary hospital for further evaluation and treatment (5) Hyperammonemia: Code(s): E72.20 - Disorder of urea cycle metabolism, unspecified Status: Acute Assessment and Plan: as noted by admission testing resumed on lactulose ammonia levels improving supportive care (6) Altered mental status: Code(s): R41.82 - Altered mental status, unspecified Status: Acute Assessment and Plan: slow improvement noted if not resolved likely secondary to #4 CT of the head with no acute abnormality (7) CRAWLEY (nonalcoholic steatohepatitis): Code(s): K75.81 - Nonalcoholic steatohepatitis (CRAWLEY) Status: Chronic Assessment and Plan: chronic issue/problems no change at this time Will continue to follow Subjective Date/time seen: 03/21/23 11:17 Interval history: Follow-up for acute kidney ijury/acute renal failure on chronic kidney disease. Mentation continues to improve as well as renal function; no apparent distress noted at the time of my visit; no issues/events overnight or earlier today; feels reasonably well. Exam Narrative: General: D/WN male in NAD Heart: normal S1 and S2; no rub Lungs: clear anteriorly Abdomen: soft, nontender, nondistended, positive bowel sounds Extremities: no cyanosis or clubbing; no edema Skin: warm and intact Objective Data Vital Signs Vital Signs: Vital Signs Temp Pulse Resp BP Pulse Ox O2 Del Method 03/21/23 11:00 98.2 F 64 16 96/56 L 100 03/21/23 08:00 Room Air 03/21/23 08:00 52 L 03/21/23 09:18 63 03/21/23 09:15 64 03/21/23 04:00 51 L 03/21/23 03:50 96.8 F L 50 L 18 96/56 L 100 03/21/23 00:00 51 L 03/20/23 20:00 67 03/20/23 21:20 97.1 F L 62 20 92/58 L 100 03/20/23 20:00 61 17 100 Room Air Intake/Output Intake/Output: Intake & Output 03/18/23 03/19/23 03/20/23 03/21/23 23:59 23:59 23:59 23:59 Intake Total 1000 2080 3660 2960 Output Total 1450 1500 1500 Balance 2907 764 1254 1460 Meds/Results Medications: Active Medications Generic Name Dose Route Start Last Admin Trade Name Freq PRN Reason Stop Dose Admin Amiodarone HCl 400 mg 03/19/23 09:00 03/21/23 09:15 Amiodarone Hcl 200 Mg Tablet PO 04/18/23 08:59 400 mg DAILY CAROL Administration Apixaban 5 mg 03/19/23 09:00 03/21/23 09:15 Apixaban 5 Mg Tablet PO 5 mg Q12HR CAROL Administration Aspirin 81 mg 03/19/23 09:00 03/21/23 09
--- NOTE | 2023-03-21 11:17 | P.PNNP_ITS ---
Progress Note: A&P Assessment and Plan (1) EMMY (acute kidney injury): Code(s): N17.9 - Acute kidney failure, unspecified Status: Acute Assessment and Plan: * ongoing improvement noted * suspicion falls on volume depletion * diuretics on hold * on IVFs * evaluation to date: * urine electrolytes are prerenal * urine eosinophils negative * renal ultrasound without obstruction * CPK normal * no proteinuria * follow trend of repeat labs and UOP (2) Stage 3a chronic kidney disease: Code(s): N18.31 - Chronic kidney disease, stage 3a Status: Chronic Assessment and Plan: * baseline creatinine runs around 1.5mg/dl inthe last 5 - 6 months * suspect some left over CKD from his EMMY/ARF given the multitude of insults (high dose diuretics, ATN, dialysis, AIN...etc) he has had since June 2022 (3) Metabolic acidosis: Code(s): E87.20 - Acidosis, unspecified Status: Acute Assessment and Plan: * presumably secondary to EMMY/ARF * follow trend * if persists, consider oral sodium bicarbonate (4) Discitis of lumbar region: Code(s): M46.46 - Discitis, unspecified, lumbar region Status: Acute Assessment and Plan: * as noted by recent imaging * prominent irregularity and sclerosis of the apposing vertebral endplates at L3-4; consider discitis, osteomyelitis * unable to do lumbar MRI due to metal clips in the heart * Neurosurgery recommends to transfer to tertiary hospital for further evaluation and treatment (5) Hyperammonemia: Code(s): E72.20 - Disorder of urea cycle metabolism, unspecified Status: Acute Assessment and Plan: * as noted by admission testing * resumed on lactulose * ammonia levels improving * supportive care (6) Altered mental status: Code(s): R41.82 - Altered mental status, unspecified Status: Acute Assessment and Plan: * slow improvement noted if not resolved * likely secondary to #4 * CT of the head with no acute abnormality (7) CRAWLEY (nonalcoholic steatohepatitis): Code(s): K75.81 - Nonalcoholic steatohepatitis (CRAWLEY) Status: Chronic Assessment and Plan: * chronic issue/problems * no change at this time Will continue to follow Subjective Date/time seen: 03/21/23 11:17 Interval history: Follow-up for acute kidney ijury/acute renal failure on chronic kidney disease. Mentation continues to improve as well as renal function; no apparent distress noted at the time of my visit; no issues/events overnight or earlier today; feels reasonably well. Exam Narrative: General: D/WN male in NAD Heart: normal S1 and S2; no rub Lungs: clear anteriorly Abdomen: soft, nontender, nondistended, positive bowel sounds Extremities: no cyanosis or clubbing; no edema Skin: warm and intact Objective Data Vital Signs Vital Signs: Vital Signs Temp Pulse Resp BP Pulse Ox O2 Del Method 03/21/23 11:00 98.2 F 64 16 96/56 L 100 03/21/23 08:00 Room Air 03/21/23 08:00 52 L 03/21/23 09:18 63 03/21/23 09:15 64 03/21/23 04:00 51 L 03/21/23 03:50 96.8 F L 50 L 18 96/56 L 100 03/21/23 00:00 51 L 03/20/23 20:00 67 03/20/23 21:20 97.1 F L 62 20 92/58 L 100
[2023-03-21 13:35] LABS: Procalcitonin 0.1 ng/mL
[2023-03-21 13:52] LABS: CRP 0.8 mg/dL (<1.0)
[2023-03-21 14:26] LABS: Ammonia 66 umol/L (9-30)
[2023-03-21 14:43] LABS: Erythrocyte Sedimentation Rate 89 mm/hr (0-20)
--- NOTE | 2023-03-21 15:14 | PC.NURSE ---
Addendum entered by Maggie Irwin RN 03/21/23 16:52: i called to follow up with Jackie Calabrese MD from Neuro Surgery, I informed her that the hospitalist did not feel comfortable with making the decision on whether the patient still needs to transfer or not to [facility]. She was given the results of the labs requested, and stated that the patient should still transfer since she cannot get the MRI results done due to patient having cardiac stents, and that the MRI would be needed for her to make a decision on whether or not the patient is at risk for infection. She is okay that the patient be transferred to [facility] instead of [place], per patients request. Original Note: This patient Romario Cammy asked to speak to me, he stated he was very upset because he was told that he was being transferred to [facility] in [place], but had no idea why. I am new to this patient and was only told in report that he was being transferred to [place] because Neuro surgery, recommended it since this was where all of his records were from. By reading the notes I determined that neuro sx recommended transfer, and upon speaking to Jackie Wallace MD ( neuro sx) she stated that in the notes that Colleen typed up regarding the neuro consult, the recommendations were that an ESR, CRP, Procalcitonin were done as well as an MRI, since patient has chronic discitis, and if there were concerns for possible infection with the test results that he go see is Infectious disease doctors at [place]. Dr Wallace also stated that after the results of the labs came back, the hospitalist could make the decision of whether or not there is an active infection if not he can be d/c and follow up outpatient. The transfer has been put in, but the patient would not like to be transferred if not necessary. I informed Dr Cisneros what Dr Wallace wanted done, so he asked me to put the orders for the labs in. I called to follow up with Dr Cisneros with the results, he was very agitated with me and was raising his voice stating i need to contact neuro surgery so they can make that decision of whether to send home or transfer this patient since they were consulted for this issue.
[2023-03-21] MEDS: METOPROLOL TARTRATE 25 MG TABLET PO (20:45)
[2023-03-22] VITALS (10 sets, daily range): BP systolic 87–110; BP diastolic 52–63; PULSE 54–66; RESP 16–20; TEMP 36.4–37.1; O2SAT 100
[2023-03-22] MEDS: SODIUM CHLORIDE 0.9% IV 1,000 ML 100 ML IV CONT ×2 (01:21→14:35)
[2023-03-22 05:20] LABS: Basophils Absolute Auto 0.1 K/mm3 (0.0-0.1); Basophils Percent Auto 1.2 % (0.2-1.2); Eosinophils Absolute Auto 0.1 K/mm3 (0-0.3); Eosinophils Percent Auto 2.7 % (0-4.4); Hematocrit 26.9 % (42.0-52.0); Hemoglobin 8.9 g/dL (14.0-18.0); Immature Granulocyte Absolute 0.02 K/mm3 (0.00-0.031); Immature Granulocyte Percent A 0.4 % (0-0.5); Immature Platelet Fraction Pct 2.6 % (0.9-11.2); Lymphocytes Absolute Auto 0.88 K/mm3 (0.9-3.2); Lymphocytes Percent Auto 17.2 % (18.3-44.2); Mean Corpuscular HGB Conc 33.1 g/dl (32-36); Mean Corpuscular Hemoglobin 31.4 pg (26-34); Mean Corpuscular Volume 95.1 fl (80-100); Mean Platelet Volume 11.1 fl (7.4-10.4); Monocytes Absolute Auto 0.6 K/mm3 (0.1-0.6); Monocytes Percent Auto 11.4 % (2.6-8.5); Neutrophils Absolute Auto 3.4 K/mm3 (1.3-6.7); Neutrophils Percent Auto 67.1 % (45.5-73.1); Platelet Count Result 84 k/mm3 (150-375); Red Blood Count 2.83 M/mm3 (4.6-6.20); Red Cell Distribution Width 15.1 % (11.5-14.5); White Blood Count 5.1 K/mm3 (4.5-10.0)
[2023-03-22 05:33] LABS: Alanine Aminotransferase 38 U/L (6-50); Alkaline Phosphatase 129 U/L (38-126); Anion Gap 7 mmol/L (8-16); Aspartate Amino Transferase 42 U/L (17-59); Bilirubin,Total 0.6 mg/dL (0.2-1.3); Blood Urea Nitrogen 21 mg/dL (9-20); Calcium 8.7 mg/dL (8.4-10.2); Carbon Dioxide 16 mmol/L (22-30); Chloride 112 mmol/L (98-107); Estimated CRCL calculation 59 ml/min; Estimated Glomerular Filt Rate 40; Glucose 94 mg/dL (65-110); Potassium 3.9 mmol/L (3.4-5.0); Sodium 135 mmol/L (137-145)
[2023-03-22 05:49] LABS: Platelet Estimate Decreased (Adequate)
[2023-03-22 05:50] LABS: Anisocytosis 1+ (NORMAL); Hypochromasia 1+ (NORMAL); Poikilocytosis 1+ (NORMAL)
[2023-03-22 05:51] LABS: Crenated RBC 1+ (NORMAL); Ovalocytes 1+ (NORMAL); Schistocytes None Seen (NORMAL)
--- NOTE | 2023-03-22 08:10 | PM.IMPN ---
Progress Note: A&P Assessment and Plan (1) Encephalopathy acute: Code(s): G93.40 - Encephalopathy, unspecified Status: Acute (2) Hyperammonemia: Code(s): E72.20 - Disorder of urea cycle metabolism, unspecified Status: Acute (3) CRAWLEY (nonalcoholic steatohepatitis): Code(s): K75.81 - Nonalcoholic steatohepatitis (CRAWLEY) Status: Acute (4) Cirrhosis: Qualifiers: Ascites presence: without ascites Hepatic cirrhosis type: unspecified hepatic cirrhosis Qualified Code(s): K74.60 - Unspecified cirrhosis of liver Code(s): K74.60 - Unspecified cirrhosis of liver Status: Acute (5) Hepatic encephalopathy: Code(s): K76.82 - Hepatic encephalopathy Status: Acute (6) Acute kidney injury superimposed on chronic kidney disease: Code(s): N17.9 - Acute kidney failure, unspecified; N18.9 - Chronic kidney disease, unspecified Status: Acute (7) Atrial fibrillation: Qualifiers: Atrial fibrillation type: paroxysmal Qualified Code(s): I48.0 - Paroxysmal atrial fibrillation Code(s): I48.91 - Unspecified atrial fibrillation Status: Acute (8) Discitis of lumbar region: Code(s): M46.46 - Discitis, unspecified, lumbar region Status: Acute Plan Hepatic encephalopathy, hyperammonemia, Crawley liver cirrhosis Patient has history of CRAWLEY liver cirrhosis, present ED with chief complaint of confusion CT head shows no acute intracranial issues In the ED, patient was found have hyperammonemia Suspected hepatic encephalopathy superimposed was electrolyte disorder, dehydration Increased lactulose p.o from 20-30 g t.i.d. p.o. and add rifaximin p.o. Neuro check Mental status improving, patient has BM 03/21; ammonia level is trending up, patient does not have bowel movement yesterday and today, increase lactulose 30 g to q.i.d. p.o. 03/22 aa level down to 20, continue lactulose 30 g q.i.d. p.o. and continue rifaximin p.o. EMMY on CKD, hyponatremia Elevated BUN creatinine above baseline Albumin 4.1 Hold Bumex spironolactone Gentle IV fluid with normal saline Consult ethernet network architect Creatinine BUN is trending down Renal ultrasound reports?6 mm stone at the lower pole of the left kidney without hydronephrosis. Continue normal saline 75 mL/hour Abnormal CT finding ?4.1 x 7 cm left inguinal soft tissue mass; diffusion diagnosis includes lymphadenopathy, metastasis, hematoma or pseudoaneurysm Consult general surgeon for evaluation treatment General surgeon considers the inguinal mass likely hematoma, general surgeon will have him follow-up with Dr. Ireland in the office 1 month after discharge. Lumbar diskitis Radiologist reports prominent irregularity and sclerosis of the apposing vertebral endplates at L3-4; consider discitis, osteomyelitis Ordered lumbar MRI, patient cannot perform MRI because of metal clips in the heart Consult neurosurgeon, recommends to transfer to tertiary hospital for further evaluation and treatment Current patient is afebrile, blood pressure stable History of aortic valve replacement Denies chest pain elevated troponin close to baseline, possible due to worsening kidney function GERD Continue PPI SAIGE Continue BiPAP in the night Patient has been accepted by the [facility], patient is on waiting list Subjective Date/time seen: 03/22/23 08:10 Interval history: I saw and exam patient today in presents of patient's at bedside. Patient had a bowel movement today patient is alert oriented, labs reviewed, ammonia is trending down to 22 from 66 yesterday. Patient afebrile, blood pressure stable Exam Narrative: GENERAL: Pleasant, in no acute distress. Well-nourished. - EYES: EOMI. Anicteric. Jaundice - HENT: Moist mucous membranes. - LUNGS: Clear to auscultation bilaterally, no wheezing, rhonchi, or rales. - CARDIOVASCULAR: Regular rate and rhythm. No murmur. No JVD. - ABDOMEN: Soft, non-tender and
[2023-03-22] MEDS: PANTOPRAZOLE 40 MG TABLET PO (08:28)
[2023-03-22] MEDS: SIMETHICONE 80 MG TAB.CHEW PO (08:28)
[2023-03-22] MEDS: APIXABAN 5 MG TABLET PO ×2 (08:28→21:33)
[2023-03-22] MEDS: AMIODARONE HCL 200 MG TABLET 400 MG PO (08:28)
[2023-03-22] MEDS: ASPIRIN 81 MG CHEWABLE TABLET PO (08:28)
[2023-03-22] MEDS: rifAXIMin 550 MG TABLET PO ×2 (08:28→21:33)
[2023-03-22] MEDS: LACTULOSE 20 GM/30 ML UDC 30 GM PO ×4 (08:29→21:32)
[2023-03-22 08:54] LABS: Ammonia 20 umol/L (9-30)
--- NOTE | 2023-03-22 10:47 | P.PNNP_ITS ---
Progress Note: A&P Assessment and Plan (1) EMMY (acute kidney injury): Code(s): N17.9 - Acute kidney failure, unspecified Status: Acute Assessment and Plan: * ongoing improvement noted * suspicion falls on volume depletion * diuretics on hold * on IVFs * evaluation to date: * urine electrolytes are prerenal * urine eosinophils negative * renal ultrasound without obstruction * CPK normal * no proteinuria * follow trend of repeat labs and UOP (2) Stage 3a chronic kidney disease: Code(s): N18.31 - Chronic kidney disease, stage 3a Status: Chronic Assessment and Plan: * baseline creatinine runs around 1.5mg/dl inthe last 5 - 6 months * suspect some left over CKD from his EMMY/ARF given the multitude of insults (high dose diuretics, ATN, dialysis, AIN...etc) he has had since June 2022 (3) Metabolic acidosis: Code(s): E87.20 - Acidosis, unspecified Status: Acute Assessment and Plan: * presumably secondary to EMMY/ARF * follow trend * if persists, consider oral sodium bicarbonate (4) Discitis of lumbar region: Code(s): M46.46 - Discitis, unspecified, lumbar region Status: Acute Assessment and Plan: * as noted by recent imaging * prominent irregularity and sclerosis of the apposing vertebral endplates at L3-4; consider discitis, osteomyelitis * unable to do lumbar MRI due to metal clips in the heart * Neurosurgery recommends to transfer to tertiary hospital for further evaluation and treatment (5) Hyperammonemia: Code(s): E72.20 - Disorder of urea cycle metabolism, unspecified Status: Acute Assessment and Plan: * as noted by admission testing * resumed on lactulose * ammonia levels improving * supportive care (6) Altered mental status: Code(s): R41.82 - Altered mental status, unspecified Status: Acute Assessment and Plan: * slow improvement noted if not resolved * likely secondary to #4 * CT of the head with no acute abnormality (7) CRAWLEY (nonalcoholic steatohepatitis): Code(s): K75.81 - Nonalcoholic steatohepatitis (CRAWLEY) Status: Chronic Assessment and Plan: * chronic issue/problems * no change at this time Will continue to follow Subjective Date/time seen: 03/22/23 10:47 Interval history: Follow-up for acute kidney injury/acute renal failure on chronic kidney disease. Renal function continues to slowly improve with current therapy/interventions; no new issues or problems voiced at the time of my visit; overall, feel reasonably well. Exam Narrative: General: D/WN male in NAD Heart: normal S1 and S2; no rub Lungs: clear anteriorly Abdomen: soft, nontender, nondistended, positive bowel sounds Extremities: no cyanosis or clubbing; no edema Skin: no rash Objective Data Vital Signs Vital Signs: Vital Signs Temp Pulse Resp BP Pulse Ox O2 Del Method 03/22/23 10:00 98.7 F 58 L 16 87/54 L 100 03/22/23 08:00 66 03/22/23 08:15 Room Air 03/22/23 04:00 54 L 03/22/23 03:35 97.5 F L 60 20 93/52 L 100 03/22/23 00:00 56 L 03/21/23 20:00 Room Air 03/21/23 20:00 77 03/21/23 20:45 70 03/21/23 19:50 97.7 F 64 18 99/60 L 100 03/21/23 16
--- NOTE | 2023-03-22 10:47 | PM.PNNEP ---
Progress Note: A&P Assessment and Plan (1) EMMY (acute kidney injury): Code(s): N17.9 - Acute kidney failure, unspecified Status: Acute Assessment and Plan: ongoing improvement noted suspicion falls on volume depletion diuretics on hold on IVFs evaluation to date: urine electrolytes are prerenal urine eosinophils negative renal ultrasound without obstruction CPK normal no proteinuria follow trend of repeat labs and UOP (2) Stage 3a chronic kidney disease: Code(s): N18.31 - Chronic kidney disease, stage 3a Status: Chronic Assessment and Plan: baseline creatinine runs around 1.5mg/dl inthe last 5 - 6 months suspect some left over CKD from his EMMY/ARF given the multitude of insults (high dose diuretics, ATN, dialysis, AIN...etc) he has had since June 2022 (3) Metabolic acidosis: Code(s): E87.20 - Acidosis, unspecified Status: Acute Assessment and Plan: presumably secondary to EMMY/ARF follow trend if persists, consider oral sodium bicarbonate (4) Discitis of lumbar region: Code(s): M46.46 - Discitis, unspecified, lumbar region Status: Acute Assessment and Plan: as noted by recent imaging prominent irregularity and sclerosis of the apposing vertebral endplates at L3-4; consider discitis, osteomyelitis unable to do lumbar MRI due to metal clips in the heart Neurosurgery recommends to transfer to tertiary hospital for further evaluation and treatment (5) Hyperammonemia: Code(s): E72.20 - Disorder of urea cycle metabolism, unspecified Status: Acute Assessment and Plan: as noted by admission testing resumed on lactulose ammonia levels improving supportive care (6) Altered mental status: Code(s): R41.82 - Altered mental status, unspecified Status: Acute Assessment and Plan: slow improvement noted if not resolved likely secondary to #4 CT of the head with no acute abnormality (7) CRAWLEY (nonalcoholic steatohepatitis): Code(s): K75.81 - Nonalcoholic steatohepatitis (CRAWLEY) Status: Chronic Assessment and Plan: chronic issue/problems no change at this time Will continue to follow Subjective Date/time seen: 03/22/23 10:47 Interval history: Follow-up for acute kidney injury/acute renal failure on chronic kidney disease. Renal function continues to slowly improve with current therapy/interventions; no new issues or problems voiced at the time of my visit; overall, feel reasonably well. Exam Narrative: General: D/WN male in NAD Heart: normal S1 and S2; no rub Lungs: clear anteriorly Abdomen: soft, nontender, nondistended, positive bowel sounds Extremities: no cyanosis or clubbing; no edema Skin: no rash Objective Data Vital Signs Vital Signs: Vital Signs Temp Pulse Resp BP Pulse Ox O2 Del Method 03/22/23 10:00 98.7 F 58 L 16 87/54 L 100 03/22/23 08:00 66 03/22/23 08:15 Room Air 03/22/23 04:00 54 L 03/22/23 03:35 97.5 F L 60 20 93/52 L 100 03/22/23 00:00 56 L 03/21/23 20:00 Room Air 03/21/23 20:00 77 03/21/23 20:45 70 03/21/23 19:50 97.7 F 64 18 99/60 L 100 03/21/23 16:00 71 Intake/Output Intake/Output: Intake & Output 03/19/23 03/20/23 03/21/23 03/22/23 23:59 23:59 23:59 23:59 Intake Total 2080 3660 3200 2650 Output Total 1450 1500 2400 850 Balance 630 2160 800 1800 Meds/Results Medications: Active Medications Generic Name Dose Route Start Last Admin Trade Name Freq PRN Reason Stop Dose Admin Amiodarone HCl 400 mg 03/19/23 09:00 03/22/23 08:28 Amiodarone Hcl 200 Mg Tablet PO 04/18/23 08:59 400 mg DAILY CAROL Administration Apixaban 5 mg 03/19/23 09:00 03/22/23 08:28 Apixaban 5 Mg Tablet PO 5 mg Q12HR CAROL Administration Aspirin 81 mg 03/19/23 09:00 03/22/23 08:28 Aspirin 81 Mg Chewable
[2023-03-22 14:35] LABS: Ammonia 54 umol/L (9-30)
[2023-03-22] MEDS: METOPROLOL TARTRATE 25 MG TABLET PO (21:33)
[2023-03-23] VITALS (11 sets, daily range): BP systolic 94–110; BP diastolic 49–58; PULSE 57–88; RESP 17–20; TEMP 36.7–38.1; O2SAT 96–99
[2023-03-23 05:03] LABS: Basophils Absolute Auto 0.1 K/mm3 (0.0-0.1); Basophils Percent Auto 1.2 % (0.2-1.2); Eosinophils Absolute Auto 0.2 K/mm3 (0-0.3); Eosinophils Percent Auto 3.1 % (0-4.4); Hematocrit 25.9 % (42.0-52.0); Hemoglobin 8.4 g/dL (14.0-18.0); Immature Granulocyte Absolute 0.02 K/mm3 (0.00-0.031); Immature Granulocyte Percent A 0.4 % (0-0.5); Immature Platelet Fraction Pct 2.3 % (0.9-11.2); Lymphocytes Absolute Auto 0.92 K/mm3 (0.9-3.2); Lymphocytes Percent Auto 18.8 % (18.3-44.2); Mean Corpuscular HGB Conc 32.4 g/dl (32-36); Mean Corpuscular Hemoglobin 31.2 pg (26-34); Mean Corpuscular Volume 96.3 fl (80-100); Mean Platelet Volume 10.9 fl (7.4-10.4); Monocytes Absolute Auto 0.7 K/mm3 (0.1-0.6); Monocytes Percent Auto 13.3 % (2.6-8.5); Neutrophils Absolute Auto 3.1 K/mm3 (1.3-6.7); Neutrophils Percent Auto 63.2 % (45.5-73.1); Platelet Count Result 70 k/mm3 (150-375); Red Blood Count 2.69 M/mm3 (4.6-6.20); Red Cell Distribution Width 15.4 % (11.5-14.5); White Blood Count 4.9 K/mm3 (4.5-10.0)
[2023-03-23 05:13] LABS: Alanine Aminotransferase 35 U/L (6-50); Albumin Level 2.8 g/dL (3.5-5.1); Alkaline Phosphatase 119 U/L (38-126); Anion Gap 8 mmol/L (8-16); Aspartate Amino Transferase 41 U/L (17-59); Bilirubin,Total 0.5 mg/dL (0.2-1.3); Blood Urea Nitrogen 18 mg/dL (9-20); Calcium 8.6 mg/dL (8.4-10.2); Carbon Dioxide 15 mmol/L (22-30); Chloride 115 mmol/L (98-107); Estimated CRCL calculation 67 ml/min; Estimated Glomerular Filt Rate 46; Glucose 88 mg/dL (65-110); Potassium 3.9 mmol/L (3.4-5.0); Sodium 138 mmol/L (137-145)
[2023-03-23 06:02] LABS: Anisocytosis 1+ (NORMAL); Burr Cells 1+ (NORMAL); Hypochromasia 1+ (NORMAL); Microcytosis 2+ (NORMAL); Ovalocytes 1+ (NORMAL); Platelet Estimate Decreased (Adequate); Poikilocytosis 1+ (NORMAL); Schistocytes None Seen (NORMAL)
--- NOTE | 2023-03-23 08:10 | PM.IMPN ---
Progress Note: A&P Assessment and Plan (1) Encephalopathy acute: Code(s): G93.40 - Encephalopathy, unspecified Status: Acute (2) Hyperammonemia: Code(s): E72.20 - Disorder of urea cycle metabolism, unspecified Status: Acute (3) CRAWLEY (nonalcoholic steatohepatitis): Code(s): K75.81 - Nonalcoholic steatohepatitis (CRAWLEY) Status: Acute (4) Cirrhosis: Qualifiers: Ascites presence: without ascites Hepatic cirrhosis type: unspecified hepatic cirrhosis Qualified Code(s): K74.60 - Unspecified cirrhosis of liver Code(s): K74.60 - Unspecified cirrhosis of liver Status: Acute (5) Hepatic encephalopathy: Code(s): K76.82 - Hepatic encephalopathy Status: Acute (6) Acute kidney injury superimposed on chronic kidney disease: Code(s): N17.9 - Acute kidney failure, unspecified; N18.9 - Chronic kidney disease, unspecified Status: Acute (7) Atrial fibrillation: Qualifiers: Atrial fibrillation type: paroxysmal Qualified Code(s): I48.0 - Paroxysmal atrial fibrillation Code(s): I48.91 - Unspecified atrial fibrillation Status: Acute (8) Discitis of lumbar region: Code(s): M46.46 - Discitis, unspecified, lumbar region Status: Acute Plan Hepatic encephalopathy, hyperammonemia, Crawley liver cirrhosis Patient has history of CRAWLEY liver cirrhosis, present ED with chief complaint of confusion CT head shows no acute intracranial issues In the ED, patient was found have hyperammonemia Suspected hepatic encephalopathy superimposed was electrolyte disorder, dehydration Increased lactulose p.o from 20-30 g t.i.d. p.o. and add rifaximin p.o. Neuro check Mental status improving, patient has BM 03/21; ammonia level is trending up, patient does not have bowel movement yesterday and today, increase lactulose 30 g to q.i.d. p.o. 03/22 aa level down to 20, continue lactulose 30 g q.i.d. p.o. and continue rifaximin p.o. EMMY on CKD, hyponatremia Elevated BUN creatinine above baseline Albumin 4.1 Hold Bumex spironolactone Gentle IV fluid with normal saline Consult staffing consultant Creatinine BUN is trending down Renal ultrasound reports?6 mm stone at the lower pole of the left kidney without hydronephrosis. on normal saline 75 mL/hour, decreased to 30 ml/h per renal recommedation Abnormal CT finding ?4.1 x 7 cm left inguinal soft tissue mass; diffusion diagnosis includes lymphadenopathy, metastasis, hematoma or pseudoaneurysm Consult general surgeon for evaluation treatment General surgeon considers the inguinal mass likely hematoma, general surgeon will have him follow-up with Dr. Ireland in the office 1 month after discharge. Lumbar diskitis Radiologist reports prominent irregularity and sclerosis of the apposing vertebral endplates at L3-4; consider discitis, osteomyelitis Ordered lumbar MRI, patient cannot perform MRI because of metal clips in the heart Consult neurosurgeon, recommends to transfer to tertiary hospital for further evaluation and treatment Current patient is afebrile, blood pressure stable History of aortic valve replacement Denies chest pain elevated troponin close to baseline, possible due to worsening kidney function GERD Continue PPI SAIGE Continue BiPAP in the night Patient has been accepted by the [facility], patient is on waiting list Subjective Date/time seen: 03/23/23 08:10 Interval history: I saw and examined patient today, patient is afebrile, patient is alert oriented, patient blood pressure is soft, heart rate is controlled, patient denied chest pain shortness of breath, hemoptysis, hematuria. Kidney function is stable, ammonia level 29 today Exam Narrative: GENERAL: Pleasant, in no acute distress. Well-nourished. - EYES: EOMI. Anicteric. Jaundice - HENT: Moist mucous membranes. - LUNGS: Clear to auscultation bilaterally, no wheezing, rhonchi, or rales. - CARDIOVASCULAR: Regular rat
[2023-03-23] MEDS: AMIODARONE HCL 200 MG TABLET 400 MG PO (08:35)
[2023-03-23] MEDS: rifAXIMin 550 MG TABLET PO ×2 (08:35→21:49)
[2023-03-23] MEDS: APIXABAN 5 MG TABLET PO ×2 (08:35→21:49)
[2023-03-23] MEDS: SIMETHICONE 80 MG TAB.CHEW PO (08:35)
[2023-03-23] MEDS: PANTOPRAZOLE 40 MG TABLET PO (08:35)
[2023-03-23] MEDS: SODIUM BICARBONATE TAB 650 MG TABLET PO ×2 (08:35→17:13)
[2023-03-23] MEDS: ASPIRIN 81 MG CHEWABLE TABLET PO (08:35)
[2023-03-23] MEDS: LACTULOSE 20 GM/30 ML UDC 30 GM PO ×4 (08:36→21:49)
[2023-03-23 10:07] LABS: Ammonia 29 umol/L (9-30)
--- NOTE | 2023-03-23 11:35 | P.PNNP_ITS ---
Progress Note: A&P Assessment and Plan (1) EMMY (acute kidney injury): Code(s): N17.9 - Acute kidney failure, unspecified Status: Acute Assessment and Plan: * ongoing improvement noted if not back to baseline * suspicion falls on volume depletion * diuretics on hold * on IVFs * evaluation to date: * urine electrolytes are prerenal * urine eosinophils negative * renal ultrasound without obstruction * CPK normal * no proteinuria * follow trend of repeat labs and UOP (2) Stage 3a chronic kidney disease: Code(s): N18.31 - Chronic kidney disease, stage 3a Status: Chronic Assessment and Plan: * baseline creatinine runs around 1.5mg/dl inthe last 5 - 6 months * suspect some left over CKD from his EMMY/ARF given the multitude of insults (high dose diuretics, ATN, dialysis, AIN...etc) he has had since June 2022 (3) Metabolic acidosis: Code(s): E87.20 - Acidosis, unspecified Status: Acute Assessment and Plan: * presumably secondary to EMMY/ARF * follow trend * start oral sodium bicarbonate (4) Discitis of lumbar region: Code(s): M46.46 - Discitis, unspecified, lumbar region Status: Acute Assessment and Plan: * as noted by recent imaging * prominent irregularity and sclerosis of the apposing vertebral endplates at L3-4; consider discitis, osteomyelitis * unable to do lumbar MRI due to metal clips in the heart * Neurosurgery recommends to transfer to tertiary hospital for further evaluation and treatment (5) Hyperammonemia: Code(s): E72.20 - Disorder of urea cycle metabolism, unspecified Status: Acute Assessment and Plan: * as noted by admission testing * resumed on lactulose * ammonia levels improving * supportive care (6) Altered mental status: Code(s): R41.82 - Altered mental status, unspecified Status: Acute Assessment and Plan: * slow improvement noted if not resolved * likely secondary to #4 * CT of the head with no acute abnormality (7) CRAWLEY (nonalcoholic steatohepatitis): Code(s): K75.81 - Nonalcoholic steatohepatitis (CRAWLEY) Status: Chronic Assessment and Plan: * chronic issue/problems * no change at this time Not much else to add -- will continue to follow from a distance. Subjective Date/time seen: 03/23/23 11:35 Interval history: Follow-up for acute kidney injury/acute renal failure on chronic kidney disease. Renal function improving as noted by trend of labs over the last several days; no apparent distress noted; awaiting transfer to given issue with lumbar discitis; otherwise feels reasonably well. Exam Narrative: General: D/WN male in NAD Heart: normal S1 and S2; no rub Lungs: clear anteriorly Abdomen: soft, nontender, nondistended, positive bowel sounds Extremities: no cyanosis or clubbing; no edema Skin: no nodules Objective Data Vital Signs Vital Signs: Vital Signs Temp Pulse Resp BP Pulse Ox O2 Del Method 03/23/23 11:00 62 03/23/23 08:00 57 L 03/23/23 08:00 Room Air 03/23/23 05:35 98.1 F 58 L 17 97/51 L 99 03/23/23 04:00 61 03/23/23 00:00 62 03/22/23 20:00 63 03/22/23 21:33 58 L 03/22/23 19:56 98.8 F 58 L 18 110/63 100
--- NOTE | 2023-03-23 11:35 | PM.PNNEP ---
Progress Note: A&P Assessment and Plan (1) EMMY (acute kidney injury): Code(s): N17.9 - Acute kidney failure, unspecified Status: Acute Assessment and Plan: ongoing improvement noted if not back to baseline suspicion falls on volume depletion diuretics on hold on IVFs evaluation to date: urine electrolytes are prerenal urine eosinophils negative renal ultrasound without obstruction CPK normal no proteinuria follow trend of repeat labs and UOP (2) Stage 3a chronic kidney disease: Code(s): N18.31 - Chronic kidney disease, stage 3a Status: Chronic Assessment and Plan: baseline creatinine runs around 1.5mg/dl inthe last 5 - 6 months suspect some left over CKD from his EMMY/ARF given the multitude of insults (high dose diuretics, ATN, dialysis, AIN...etc) he has had since June 2022 (3) Metabolic acidosis: Code(s): E87.20 - Acidosis, unspecified Status: Acute Assessment and Plan: presumably secondary to EMMY/ARF follow trend start oral sodium bicarbonate (4) Discitis of lumbar region: Code(s): M46.46 - Discitis, unspecified, lumbar region Status: Acute Assessment and Plan: as noted by recent imaging prominent irregularity and sclerosis of the apposing vertebral endplates at L3-4; consider discitis, osteomyelitis unable to do lumbar MRI due to metal clips in the heart Neurosurgery recommends to transfer to tertiary hospital for further evaluation and treatment (5) Hyperammonemia: Code(s): E72.20 - Disorder of urea cycle metabolism, unspecified Status: Acute Assessment and Plan: as noted by admission testing resumed on lactulose ammonia levels improving supportive care (6) Altered mental status: Code(s): R41.82 - Altered mental status, unspecified Status: Acute Assessment and Plan: slow improvement noted if not resolved likely secondary to #4 CT of the head with no acute abnormality (7) CRAWLEY (nonalcoholic steatohepatitis): Code(s): K75.81 - Nonalcoholic steatohepatitis (CRAWLEY) Status: Chronic Assessment and Plan: chronic issue/problems no change at this time Not much else to add -- will continue to follow from a distance. Subjective Date/time seen: 03/23/23 11:35 Interval history: Follow-up for acute kidney injury/acute renal failure on chronic kidney disease. Renal function improving as noted by trend of labs over the last several days; no apparent distress noted; awaiting transfer to given issue with lumbar discitis; otherwise feels reasonably well. Exam Narrative: General: D/WN male in NAD Heart: normal S1 and S2; no rub Lungs: clear anteriorly Abdomen: soft, nontender, nondistended, positive bowel sounds Extremities: no cyanosis or clubbing; no edema Skin: no nodules Objective Data Vital Signs Vital Signs: Vital Signs Temp Pulse Resp BP Pulse Ox O2 Del Method 03/23/23 11:00 62 03/23/23 08:00 57 L 03/23/23 08:00 Room Air 03/23/23 05:35 98.1 F 58 L 17 97/51 L 99 03/23/23 04:00 61 03/23/23 00:00 62 03/22/23 20:00 63 03/22/23 21:33 58 L 03/22/23 19:56 98.8 F 58 L 18 110/63 100 Intake/Output Intake/Output: Intake & Output 03/20/23 03/21/23 03/22/23 03/23/23 23:59 23:59 23:59 23:59 Intake Total 3660 3200 3000 1150 Output Total 1500 2400 1700 400 Balance 2160 800 1300 750 Meds/Results Medications: Active Medications Generic Name Dose Route Start Last Admin Trade Name Car PRN Reason Stop Dose Admin Amiodarone HCl 400 mg 03/19/23 09:00 03/23/23 08:35 Amiodarone Hcl 200 Mg Tablet PO 04/18/23 08:59 400 mg DAILY CAROL Administration Apixaban 5 mg 03/19/23 09:00 03/23/23 08:35 Apixaban 5 Mg Tablet PO 5 mg Q12HR CAROL Administration Aspirin 81 mg 03/19/23 09:00 03/23/23 08:35 Aspirin 81 Mg Chewable Ta
[2023-03-24] VITALS (12 sets, daily range): BP systolic 97–104; BP diastolic 52–60; PULSE 58–76; RESP 18–20; TEMP 36.2–36.4; O2SAT 98–100
[2023-03-24 02:54] LABS: Influenza A QL RT-PCR Negative (Negative); Influenza B QL RT-PCR Negative (Negative); RSV RNA, RT-PCR Negative (Negative); SARS-CoV-2 RNA PCR Negative (Negative)
[2023-03-24 05:54] LABS: Basophils Absolute Auto 0.1 K/mm3 (0.0-0.1); Basophils Percent Auto 0.6 % (0.2-1.2); Eosinophils Absolute Auto 0.1 K/mm3 (0-0.3); Eosinophils Percent Auto 1.1 % (0-4.4); Hematocrit 24.2 % (42.0-52.0); Hemoglobin 7.9 g/dL (14.0-18.0); Immature Granulocyte Absolute 0.05 K/mm3 (0.00-0.031); Immature Granulocyte Percent A 0.6 % (0-0.5); Immature Platelet Fraction Pct 2.2 % (0.9-11.2); Lymphocytes Percent Auto 10.2 % (18.3-44.2); Mean Corpuscular HGB Conc 32.6 g/dl (32-36); Mean Corpuscular Hemoglobin 32.1 pg (26-34); Mean Corpuscular Volume 98.4 fl (80-100); Mean Platelet Volume 11.1 fl (7.4-10.4); Monocytes Absolute Auto 0.8 K/mm3 (0.1-0.6); Monocytes Percent Auto 9.3 % (2.6-8.5); Neutrophils Absolute Auto 6.9 K/mm3 (1.3-6.7); Neutrophils Percent Auto 78.2 % (45.5-73.1); Platelet Count Result 60 k/mm3 (150-375); Red Blood Count 2.46 M/mm3 (4.6-6.20); Red Cell Distribution Width 15.4 % (11.5-14.5); White Blood Count 8.8 K/mm3 (4.5-10.0)
[2023-03-24 05:56] LABS: Lactic Acid Reflex 0.8 mmol/L (0.7-2.0)
[2023-03-24 06:01] LABS: Alanine Aminotransferase 36 U/L (6-50); Albumin Level 2.6 g/dL (3.5-5.1); Alkaline Phosphatase 127 U/L (38-126); Anion Gap 7 mmol/L (8-16); Aspartate Amino Transferase 41 U/L (17-59); Bilirubin,Total 0.6 mg/dL (0.2-1.3); Blood Urea Nitrogen 17 mg/dL (9-20); CRP 3.5 mg/dL (<1.0); Calcium 8.4 mg/dL (8.4-10.2); Carbon Dioxide 16 mmol/L (22-30); Chloride 114 mmol/L (98-107); Estimated CRCL calculation 67 ml/min; Estimated Glomerular Filt Rate 46; Glucose 95 mg/dL (65-110); Potassium 3.7 mmol/L (3.4-5.0); Sodium 137 mmol/L (137-145)
[2023-03-24 07:50] LABS: Erythrocyte Sedimentation Rate 119 mm/hr (0-20)
[2023-03-24] MEDS: ASPIRIN 81 MG CHEWABLE TABLET PO (09:47)
[2023-03-24] MEDS: PANTOPRAZOLE 40 MG TABLET PO (09:47)
[2023-03-24] MEDS: rifAXIMin 550 MG TABLET PO ×2 (09:47→21:02)
[2023-03-24] MEDS: APIXABAN 5 MG TABLET PO ×2 (09:47→21:02)
[2023-03-24] MEDS: AMIODARONE HCL 200 MG TABLET 400 MG PO (09:47)
[2023-03-24] MEDS: LACTULOSE 20 GM/30 ML UDC 30 GM PO (09:48)
[2023-03-24] MEDS: SODIUM BICARBONATE TAB 650 MG TABLET PO ×2 (09:48→18:20)
[2023-03-24] MEDS: SIMETHICONE 80 MG TAB.CHEW PO (09:48)
--- NOTE | 2023-03-24 12:15 | PM.IMPN ---
Progress Note: A&P Assessment and Plan (1) Encephalopathy acute: Code(s): G93.40 - Encephalopathy, unspecified Status: Acute (2) Hyperammonemia: Code(s): E72.20 - Disorder of urea cycle metabolism, unspecified Status: Acute (3) CRAWLEY (nonalcoholic steatohepatitis): Code(s): K75.81 - Nonalcoholic steatohepatitis (CRAWLEY) Status: Acute (4) Cirrhosis: Qualifiers: Hepatic cirrhosis type: unspecified hepatic cirrhosis Ascites presence: without ascites Qualified Code(s): K74.60 - Unspecified cirrhosis of liver Code(s): K74.60 - Unspecified cirrhosis of liver Status: Acute (5) Hepatic encephalopathy: Code(s): K76.82 - Hepatic encephalopathy Status: Acute (6) Acute kidney injury superimposed on chronic kidney disease: Code(s): N17.9 - Acute kidney failure, unspecified; N18.9 - Chronic kidney disease, unspecified Status: Acute (7) Atrial fibrillation: Qualifiers: Atrial fibrillation type: paroxysmal Qualified Code(s): I48.0 - Paroxysmal atrial fibrillation Code(s): I48.91 - Unspecified atrial fibrillation Status: Acute (8) Discitis of lumbar region: Code(s): M46.46 - Discitis, unspecified, lumbar region Status: Acute Plan Hepatic encephalopathy, hyperammonemia, Crawley liver cirrhosis Patient has history of CRALWEY liver cirrhosis, present ED with chief complaint of confusion CT head shows no acute intracranial issues In the ED, patient was found have hyperammonemia Suspected hepatic encephalopathy superimposed was electrolyte disorder, dehydration Increased lactulose p.o from 20-30 g t.i.d. p.o. and add rifaximin p.o. 03/21: ammonia level is trending up, patient does not have bowel movement yesterday and today, increase lactulose 30 g to q.i.d. p.o. 03/22: AA level down to 20, continue lactulose 30 g q.i.d. p.o. and continue rifaximin p.o. 03/24: pt does not appear confused not having bowel movements today increase laxative dosing pt can start PT/ OT order ammonia levels EMMY on CKD, hyponatremia Elevated BUN creatinine above baseline Sodium bicarbonate on board Consulted rocket engine mechanic, creat improved to 1.6 Creatinine BUN is trending down Renal ultrasound reports?6 mm stone at the lower pole of the left kidney without hydronephrosis. Abnormal CT finding ?4.1 x 7 cm left inguinal soft tissue mass; diffusion diagnosis includes lymphadenopathy, metastasis, hematoma or pseudoaneurysm Consult general surgeon for evaluation treatment General surgeon considers the inguinal mass likely hematoma, general surgeon will have him follow-up with Dr. Ireland in the office 1 month after discharge. Lumbar diskitis Radiologist reports prominent irregularity and sclerosis of the apposing vertebral endplates at L3-4; consider discitis, osteomyelitis Ordered lumbar MRI, patient cannot perform MRI because of metal clips in the heart Consult neurosurgeon, recommends to transfer to tertiary hospital for further evaluation and treatment Current patient is afebrile, blood pressure stable, medically stable for transfer History of aortic valve replacement Denies chest pain elevated troponin close to baseline, possible due to worsening kidney function GERD Continue PPI SAIGE Continue BiPAP in the night Patient has been accepted by the [facility], patient is on waiting list Subjective Date/time seen: 03/24/23 12:15 Interval history: Radiologist reports prominent irregularity and sclerosis of the apposing vertebral endplates at L3-4; consider discitis, osteomyelitis pt awaiting bed to [facility]. no bed yet Hepatic encephalopathy, hyperammonemia, Crawley liver cirrhosis Pt not having bowel movements despite laxatives. Add additional bowel regime Bp is low continue to watch in hospital Pt will benefit from PT/ OT Review of Systems Review of Systems: Weakness, no bowel movement, some complaints of back pains Exam Narra
[2023-03-24] MEDS: LACTULOSE 20 GM/30 ML UDC 60 GM PO ×2 (13:51→20:58)
[2023-03-24] MEDS: METOPROLOL TARTRATE 25 MG TABLET PO (21:00)
[2023-03-25] VITALS (12 sets, daily range): BP systolic 95–105; BP diastolic 50–71; PULSE 58–75; RESP 12–20; TEMP 36.2–36.8; O2SAT 99–100
[2023-03-25 05:44] LABS: Ammonia 31 umol/L (9-30)
[2023-03-25 05:55] LABS: Alanine Aminotransferase 48 U/L (6-50); Albumin Level 2.5 g/dL (3.5-5.1); Alkaline Phosphatase 145 U/L (38-126); Anion Gap 5 mmol/L (8-16); Aspartate Amino Transferase 59 U/L (17-59); Bilirubin,Total 0.5 mg/dL (0.2-1.3); Blood Urea Nitrogen 16 mg/dL (9-20); Calcium 8.7 mg/dL (8.4-10.2); Carbon Dioxide 15 mmol/L (22-30); Chloride 116 mmol/L (98-107); Estimated CRCL calculation 76 ml/min; Estimated Glomerular Filt Rate 53; Glucose 87 mg/dL (65-110); Potassium 3.7 mmol/L (3.4-5.0); Sodium 136 mmol/L (137-145)
[2023-03-25] MEDS: PANTOPRAZOLE 40 MG TABLET PO (09:39)
[2023-03-25] MEDS: rifAXIMin 550 MG TABLET PO ×2 (09:39→20:20)
[2023-03-25] MEDS: ASPIRIN 81 MG CHEWABLE TABLET PO (09:39)
[2023-03-25] MEDS: APIXABAN 5 MG TABLET PO ×2 (09:39→20:20)
[2023-03-25] MEDS: LACTULOSE 20 GM/30 ML UDC 60 GM PO (09:39)
[2023-03-25] MEDS: SIMETHICONE 80 MG TAB.CHEW PO (09:39)
[2023-03-25] MEDS: AMIODARONE HCL 200 MG TABLET 400 MG PO (09:40)
[2023-03-25] MEDS: SODIUM BICARBONATE TAB 650 MG TABLET 1300 MG PO ×2 (09:40→18:11)
--- NOTE | 2023-03-25 14:24 | PM.IMPN ---
Progress Note: A&P Assessment and Plan (1) Encephalopathy acute: Code(s): G93.40 - Encephalopathy, unspecified Status: Acute (2) Hyperammonemia: Code(s): E72.20 - Disorder of urea cycle metabolism, unspecified Status: Acute (3) CRAWLEY (nonalcoholic steatohepatitis): Code(s): K75.81 - Nonalcoholic steatohepatitis (CRAWLEY) Status: Acute (4) Cirrhosis: Qualifiers: Hepatic cirrhosis type: unspecified hepatic cirrhosis Ascites presence: without ascites Qualified Code(s): K74.60 - Unspecified cirrhosis of liver Code(s): K74.60 - Unspecified cirrhosis of liver Status: Acute (5) Hepatic encephalopathy: Code(s): K76.82 - Hepatic encephalopathy Status: Acute (6) Acute kidney injury superimposed on chronic kidney disease: Code(s): N17.9 - Acute kidney failure, unspecified; N18.9 - Chronic kidney disease, unspecified Status: Acute (7) Atrial fibrillation: Qualifiers: Atrial fibrillation type: paroxysmal Qualified Code(s): I48.0 - Paroxysmal atrial fibrillation Code(s): I48.91 - Unspecified atrial fibrillation Status: Acute (8) Discitis of lumbar region: Code(s): M46.46 - Discitis, unspecified, lumbar region Status: Acute Plan Hepatic encephalopathy, hyperammonemia, Crawley liver cirrhosis Patient has history of CRAWLEY liver cirrhosis, present ED with chief complaint of confusion CT head shows no acute intracranial issues In the ED, patient was found have hyperammonemia Suspected hepatic encephalopathy superimposed was electrolyte disorder, dehydration Increased lactulose p.o from 20-30 g t.i.d. p.o. and add rifaximin p.o. 03/21: ammonia level is trending up, patient does not have bowel movement yesterday and today, increase lactulose 30 g to q.i.d. p.o. 03/22: AA level down to 20, continue lactulose 30 g q.i.d. p.o. and continue rifaximin p.o. 03/24: pt does not appear confused not having bowel movements today increase laxative dosing pt can start PT/ OT order ammonia levels 03/25: pt doing well with had large bowel movement ok to reduce lactulose dose EMMY on CKD, hyponatremia Elevated BUN creatinine above baseline Sodium bicarbonate on board Consulted hotel housekeeper, creat improved to 1.6 Creatinine BUN is trending down Renal ultrasound reports?6 mm stone at the lower pole of the left kidney without hydronephrosis. Abnormal CT finding ?4.1 x 7 cm left inguinal soft tissue mass; diffusion diagnosis includes lymphadenopathy, metastasis, hematoma or pseudoaneurysm Consult general surgeon for evaluation treatment General surgeon considers the inguinal mass likely hematoma, general surgeon will have him follow-up with Dr. Ireland in the office 1 month after discharge. Lumbar diskitis Radiologist reports prominent irregularity and sclerosis of the apposing vertebral endplates at L3-4; consider discitis, osteomyelitis Ordered lumbar MRI, patient cannot perform MRI because of metal clips in the heart Consult neurosurgeon, recommends to transfer to tertiary hospital for further evaluation and treatment Current patient is afebrile, blood pressure stable, medically stable for transfer History of aortic valve replacement Denies chest pain elevated troponin close to baseline, possible due to worsening kidney function GERD Continue PPI SAIGE Continue BiPAP in the night Patient has been accepted by the [facility], patient is on waiting list Subjective Date/time seen: 03/25/23 14:24 Interval history: Radiologist reports prominent irregularity and sclerosis of the apposing vertebral endplates at L3-4; consider discitis, osteomyelitis pt awaiting bed to [facility]. no bed yet Hepatic encephalopathy, hyperammonemia, Crawley liver cirrhosis Pt not having bowel movements despite laxatives. Add additional bowel regime Bp is low continue to watch in hospital 102/50 today Pt doing well with theraphy today Review of Systems R
[2023-03-25] MEDS: LACTULOSE 20 GM/30 ML UDC 30 GM PO ×2 (18:12→20:20)
[2023-03-26] VITALS (11 sets, daily range): BP systolic 94–112; BP diastolic 50–66; PULSE 60–85; RESP 12–18; TEMP 36.4–36.9; O2SAT 96–100
[2023-03-26 06:07] LABS: Alanine Aminotransferase 53 U/L (6-50); Albumin Level 2.5 g/dL (3.5-5.1); Alkaline Phosphatase 152 U/L (38-126); Anion Gap 7 mmol/L (8-16); Aspartate Amino Transferase 57 U/L (17-59); Bilirubin,Total 0.5 mg/dL (0.2-1.3); Blood Urea Nitrogen 15 mg/dL (9-20); Calcium 8.6 mg/dL (8.4-10.2); Carbon Dioxide 17 mmol/L (22-30); Chloride 113 mmol/L (98-107); Estimated CRCL calculation 76 ml/min; Estimated Glomerular Filt Rate 53; Glucose 91 mg/dL (65-110); Potassium 3.8 mmol/L (3.4-5.0); Sodium 137 mmol/L (137-145)
[2023-03-26] MEDS: LACTULOSE 20 GM/30 ML UDC 30 GM PO ×3 (08:27→16:56)
[2023-03-26] MEDS: APIXABAN 5 MG TABLET PO ×2 (08:29→20:11)
[2023-03-26] MEDS: SODIUM BICARBONATE TAB 650 MG TABLET 1300 MG PO ×2 (08:29→16:55)
[2023-03-26] MEDS: rifAXIMin 550 MG TABLET PO ×2 (08:30→20:12)
[2023-03-26] MEDS: SIMETHICONE 80 MG TAB.CHEW PO (08:30)
[2023-03-26] MEDS: PANTOPRAZOLE 40 MG TABLET PO (08:30)
[2023-03-26] MEDS: AMIODARONE HCL 200 MG TABLET 400 MG PO (08:30)
[2023-03-26] MEDS: ASPIRIN 81 MG CHEWABLE TABLET PO (08:32)
--- NOTE | 2023-03-26 12:17 | PM.IMPN ---
Progress Note: A&P Assessment and Plan (1) Encephalopathy acute: Code(s): G93.40 - Encephalopathy, unspecified Status: Acute (2) Hyperammonemia: Code(s): E72.20 - Disorder of urea cycle metabolism, unspecified Status: Acute (3) CRAWLEY (nonalcoholic steatohepatitis): Code(s): K75.81 - Nonalcoholic steatohepatitis (CRAWLEY) Status: Acute (4) Cirrhosis: Qualifiers: Hepatic cirrhosis type: unspecified hepatic cirrhosis Ascites presence: without ascites Qualified Code(s): K74.60 - Unspecified cirrhosis of liver Code(s): K74.60 - Unspecified cirrhosis of liver Status: Acute (5) Hepatic encephalopathy: Code(s): K76.82 - Hepatic encephalopathy Status: Acute (6) Acute kidney injury superimposed on chronic kidney disease: Code(s): N17.9 - Acute kidney failure, unspecified; N18.9 - Chronic kidney disease, unspecified Status: Acute (7) Atrial fibrillation: Qualifiers: Atrial fibrillation type: paroxysmal Qualified Code(s): I48.0 - Paroxysmal atrial fibrillation Code(s): I48.91 - Unspecified atrial fibrillation Status: Acute (8) Discitis of lumbar region: Code(s): M46.46 - Discitis, unspecified, lumbar region Status: Acute Plan Hepatic encephalopathy, hyperammonemia, Crawley liver cirrhosis Patient has history of CRAWLEY liver cirrhosis, present ED with chief complaint of confusion CT head shows no acute intracranial issues In the ED, patient was found have hyperammonemia Suspected hepatic encephalopathy superimposed was electrolyte disorder, dehydration Increased lactulose p.o from 20-30 g t.i.d. p.o. and add rifaximin p.o. 03/21: ammonia level is trending up, patient does not have bowel movement yesterday and today, increase lactulose 30 g to q.i.d. p.o. 03/22: AA level down to 20, continue lactulose 30 g q.i.d. p.o. and continue rifaximin p.o. 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 Abnormal CT finding ?4.1 x 7 cm left inguinal soft tissue mass; diffusion diagnosis includes lymphadenopathy, metastasis, hematoma or pseudoaneurysm Consult general surgeon for evaluation treatment General surgeon considers the inguinal mass likely hematoma, general surgeon will have him follow-up with Dr. Ireland in the office 1 month after discharge. Lumbar diskitis Radiologist reports prominent irregularity and sclerosis of the apposing vertebral endplates at L3-4; consider discitis, osteomyelitis Ordered lumbar MRI, patient cannot perform MRI because of metal clips in the heart Consult neurosurgeon, recommends to transfer to tertiary hospital for further evaluation and treatment Current patient is afebrile, blood pressure stable, medically stable for transfer History of aortic valve replacement Denies chest pain elevated troponin close to baseline, possible due to worsening kidney function GERD Continue PPI SAIGE Continue BiPAP in the night Patient has been accepted by the [facility], patient is on waiting list Subjective Date/time seen: 03/26/23 12:17 Interval history: Radiologist reports prominent irregularity and sclerosis of the apposing vertebral endplates at L3-4; consider discitis, osteomyelitis pt awaiting bed to [facility]. no bed yet Hepatic encephalopathy, hyperammonemia, Crawley liver cirrhosis Pt not having bowel movements despite laxatives. Add additional bowel regime Bp is low continue to watch in hospital 102/50 today Pt doing wel
[2023-03-26] MEDS: FERROUS SULFATE 325 MG TABLET DR PO (16:55)
--- NOTE | 2023-03-26 21:50 | PM.EVENT ---
Event Note Event Note Event Note: review of case completed. no events on telemetry. HR stable. currently awaiting transfer to tertiary [facility] for MRI. d/c tele.
[2023-03-27] VITALS (7 sets, daily range): BP systolic 113–115; BP diastolic 65–76; PULSE 70–90; RESP 16–18; TEMP 36.4–37.1; O2SAT 98–100
[2023-03-27 05:43] LABS: Hematocrit 23.5 % (42.0-52.0); Hemoglobin 7.6 g/dL (14.0-18.0); Immature Platelet Fraction Pct 2.2 % (0.9-11.2); Mean Corpuscular HGB Conc 32.3 g/dl (32-36); Mean Corpuscular Hemoglobin 31.5 pg (26-34); Mean Corpuscular Volume 97.5 fl (80-100); Mean Platelet Volume 10.9 fl (7.4-10.4); Platelet Count Result 65 k/mm3 (150-375); Red Blood Count 2.41 M/mm3 (4.6-6.20); Red Cell Distribution Width 15.9 % (11.5-14.5)
[2023-03-27 05:46] LABS: White Blood Count 4.2 K/mm3 (4.5-10.0)
[2023-03-27 06:01] LABS: Alanine Aminotransferase 77 U/L (6-50); Albumin Level 2.4 g/dL (3.5-5.1); Alkaline Phosphatase 178 U/L (38-126); Anion Gap 4 mmol/L (8-16); Aspartate Amino Transferase 79 U/L (17-59); Bilirubin,Total 0.5 mg/dL (0.2-1.3); Blood Urea Nitrogen 15 mg/dL (9-20); Calcium 8.7 mg/dL (8.4-10.2); Carbon Dioxide 20 mmol/L (22-30); Chloride 113 mmol/L (98-107); Estimated CRCL calculation 76 ml/min; Estimated Glomerular Filt Rate 53; Glucose 95 mg/dL (65-110); Sodium 137 mmol/L (137-145)
--- NOTE | 2023-03-27 08:14 | PM.IMPN ---
Progress Note: A&P Assessment and Plan (1) Encephalopathy acute: Code(s): G93.40 - Encephalopathy, unspecified Status: Acute (2) Hyperammonemia: Code(s): E72.20 - Disorder of urea cycle metabolism, unspecified Status: Acute (3) CRAWLEY (nonalcoholic steatohepatitis): Code(s): K75.81 - Nonalcoholic steatohepatitis (CRAWLEY) Status: Acute (4) Cirrhosis: Qualifiers: Ascites presence: without ascites Hepatic cirrhosis type: unspecified hepatic cirrhosis Qualified Code(s): K74.60 - Unspecified cirrhosis of liver Code(s): K74.60 - Unspecified cirrhosis of liver Status: Acute (5) Hepatic encephalopathy: Code(s): K76.82 - Hepatic encephalopathy Status: Acute (6) Acute kidney injury superimposed on chronic kidney disease: Code(s): N17.9 - Acute kidney failure, unspecified; N18.9 - Chronic kidney disease, unspecified Status: Acute (7) Atrial fibrillation: Qualifiers: Atrial fibrillation type: paroxysmal Qualified Code(s): I48.0 - Paroxysmal atrial fibrillation Code(s): I48.91 - Unspecified atrial fibrillation Status: Acute (8) Discitis of lumbar region: Code(s): M46.46 - Discitis, unspecified, lumbar region Status: Acute Plan Hepatic encephalopathy, hyperammonemia, Crawley liver cirrhosis Patient has history of CRAWLEY liver cirrhosis, present ED with chief complaint of confusion CT head shows no acute intracranial issues In the ED, patient was found have hyperammonemia Suspected hepatic encephalopathy superimposed was electrolyte disorder, dehydration On lactulose p.o from 20-30 g t.i.d. p.o. and add rifaximin p.o. Ammonia level coming down EMMY on CKD, hyponatremia Elevated BUN creatinine above baseline Sodium bicarbonate on board Consulted roller stainer, creat improved to 1.6 Creatinine BUN is trending down Renal ultrasound reports?6 mm stone at the lower pole of the left kidney without hydronephrosis. Abnormal CT finding CT abdomen showed ?4.1 x 7 cm left inguinal soft tissue mass; diffusion diagnosis includes lymphadenopathy, metastasis, hematoma or pseudoaneurysm. Consult general surgeon for evaluation treatment General surgeon considers the inguinal mass likely hematoma, general surgeon will have him follow-up with Dr. Ireland in the office 1 month after discharge. Lumbar diskitis Radiologist reports prominent irregularity and sclerosis of the apposing vertebral endplates at L3-4; consider discitis, osteomyelitis Ordered lumbar MRI, patient cannot perform MRI because of metal clips in the heart Consult neurosurgeon, recommends to transfer to tertiary hospital for further evaluation and treatment Patient accepted at [facility] awaiting bed placement History of aortic valve replacement Denies chest pain elevated troponin close to baseline, possible due to worsening kidney function GERD Continue PPI SAIGE Continue BiPAP in the night Chronic anemia mild no signs of bleeding continue to monitor Thrombocytopenia chronic likely related to underlying cirrhosis. With coagulopathy Patient has been accepted by the [facility], patient is on waiting list Subjective Date/time seen: 03/27/23 08:14 Interval history: No overnight events. Working with therapy today. Denies any new complaints. No back pain reported. Review of Systems Review of Systems: All systems reviewed & are unremarkable except as noted in HPI and below Exam Narrative: GENERAL: Pleasant, in no acute distress. Well-nourished. - EYES: EOMI. Anicteric. Jaundice - HENT: Moist mucous membranes. - LUNGS: Clear to auscultation bilaterally, no wheezing, rhonchi, or rales. - CARDIOVASCULAR: Regular rate and rhythm. No murmur. No JVD. - ABDOMEN: Soft, non-tender and some distended. No palpable masses. - EXTREMITIES: No edema. Peripheral pulses 2+. Non-tender. 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 CN
[2023-03-27] MEDS: FERROUS SULFATE 325 MG TABLET DR PO ×2 (09:07→17:46)
[2023-03-27] MEDS: APIXABAN 5 MG TABLET PO ×2 (09:07→21:41)
[2023-03-27] MEDS: PANTOPRAZOLE 40 MG TABLET PO (09:07)
[2023-03-27] MEDS: AMIODARONE HCL 200 MG TABLET 400 MG PO (09:07)
[2023-03-27] MEDS: ASPIRIN 81 MG CHEWABLE TABLET PO (09:07)
[2023-03-27] MEDS: SIMETHICONE 80 MG TAB.CHEW PO (09:07)
[2023-03-27] MEDS: rifAXIMin 550 MG TABLET PO ×2 (09:07→21:41)
[2023-03-27] MEDS: SODIUM BICARBONATE TAB 650 MG TABLET 1300 MG PO ×2 (09:08→17:46)
[2023-03-27] MEDS: LACTULOSE 20 GM/30 ML UDC 30 GM PO ×4 (09:10→21:41)
--- NOTE | 2023-03-27 09:16 | PM.PNNEP ---
Progress Note: A&P Assessment and Plan (1) EMMY (acute kidney injury): Code(s): N17.9 - Acute kidney failure, unspecified Status: Acute Assessment and Plan: ongoing improvement noted if not back to baseline suspicion falls on volume depletion diuretics on hold on IVFs evaluation to date: urine electrolytes are prerenal urine eosinophils negative renal ultrasound without obstruction CPK normal no proteinuria follow trend of repeat labs and UOP (2) Stage 3a chronic kidney disease: Code(s): N18.31 - Chronic kidney disease, stage 3a Status: Chronic Assessment and Plan: baseline creatinine runs around 1.5mg/dl inthe last 5 - 6 months suspect some left over CKD from his EMMY/ARF given the multitude of insults (high dose diuretics, ATN, dialysis, AIN...etc) he has had since June 2022 (3) Metabolic acidosis: Code(s): E87.20 - Acidosis, unspecified Status: Acute Assessment and Plan: presumably secondary to EMMY/ARF follow trend start oral sodium bicarbonate (4) Discitis of lumbar region: Code(s): M46.46 - Discitis, unspecified, lumbar region Status: Acute Assessment and Plan: as noted by recent imaging prominent irregularity and sclerosis of the apposing vertebral endplates at L3-4; consider discitis, osteomyelitis unable to do lumbar MRI due to metal clips in the heart Neurosurgery recommends to transfer to tertiary hospital for further evaluation and treatment (5) Hyperammonemia: Code(s): E72.20 - Disorder of urea cycle metabolism, unspecified Status: Acute Assessment and Plan: as noted by admission testing resumed on lactulose ammonia levels improving supportive care (6) Altered mental status: Code(s): R41.82 - Altered mental status, unspecified Status: Acute Assessment and Plan: slow improvement noted if not resolved likely secondary to #4 CT of the head with no acute abnormality (7) CRAWLEY (nonalcoholic steatohepatitis): Code(s): K75.81 - Nonalcoholic steatohepatitis (CRAWLEY) Status: Chronic Assessment and Plan: chronic issue/problems no change at this time Not much else to add -- will continue to follow from a distance. Subjective Date/time seen: 03/27/23 09:16 Interval history: Follow-up for acute kidney injury/acute renal failure on chronic kidney disease. He appears to be doing reasonably well at the time of my visit; no apparent distress noted; renal function remains stable with slow improvement in metabolic acidosis with use of sodium bicarbonate; no other issues/events overnight or earlier this morning; still awaiting transfer. Exam Narrative: General: D/WN male in NAD Heart: normal S1 and S2; no rub Lungs: clear anteriorly Abdomen: soft, nontender, nondistended, positive bowel sounds Extremities: no cyanosis or clubbing; no edema Skin: warm and dry Objective Data Vital Signs Vital Signs: Vital Signs Temp Pulse Resp BP Pulse Ox O2 Del Method 03/27/23 09:10 Room Air 03/27/23 09:07 90 03/27/23 09:05 86 16 115/68 100 03/27/23 05:28 98.4 F 72 18 113/65 100 03/26/23 20:00 Room Air 03/26/23 20:12 85 03/26/23 20:09 98.4 F 77 16 107/66 99 Intake/Output Intake/Output: Intake & Output 03/24/23 03/25/23 03/26/23 03/27/23 23:59 23:59 23:59 23:59 Intake Total 980 1290 1370 730 Output Total 4067 038 8838 Balance -220 690 -30 730 Meds/Results Medications: Active Medications Generic Name Dose Route Start Last Admin Trade Name Car PRN Reason Stop Dose Admin Amiodarone HCl 400 mg 03/19/23 09:00 03/27/23 09:07 Amiodarone Hcl 200 Mg Tablet PO 04/18/23 08:59 400 mg DAILY CAROL Administration Apixaban 5 mg 03/19/23 09:00 03/27/23 09:07 Apixaban 5 Mg Tablet PO 5 mg Q12HR CAROL Administration Aspirin 81 mg 03/19/23 09:00 0
--- NOTE | 2023-03-27 09:16 | P.PNNP_ITS ---
Progress Note: A&P Assessment and Plan (1) EMMY (acute kidney injury): Code(s): N17.9 - Acute kidney failure, unspecified Status: Acute Assessment and Plan: * ongoing improvement noted if not back to baseline * suspicion falls on volume depletion * diuretics on hold * on IVFs * evaluation to date: * urine electrolytes are prerenal * urine eosinophils negative * renal ultrasound without obstruction * CPK normal * no proteinuria * follow trend of repeat labs and UOP (2) Stage 3a chronic kidney disease: Code(s): N18.31 - Chronic kidney disease, stage 3a Status: Chronic Assessment and Plan: * baseline creatinine runs around 1.5mg/dl inthe last 5 - 6 months * suspect some left over CKD from his EMMY/ARF given the multitude of insults (high dose diuretics, ATN, dialysis, AIN...etc) he has had since June 2022 (3) Metabolic acidosis: Code(s): E87.20 - Acidosis, unspecified Status: Acute Assessment and Plan: * presumably secondary to EMMY/ARF * follow trend * start oral sodium bicarbonate (4) Discitis of lumbar region: Code(s): M46.46 - Discitis, unspecified, lumbar region Status: Acute Assessment and Plan: * as noted by recent imaging * prominent irregularity and sclerosis of the apposing vertebral endplates at L3-4; consider discitis, osteomyelitis * unable to do lumbar MRI due to metal clips in the heart * Neurosurgery recommends to transfer to tertiary hospital for further evaluation and treatment (5) Hyperammonemia: Code(s): E72.20 - Disorder of urea cycle metabolism, unspecified Status: Acute Assessment and Plan: * as noted by admission testing * resumed on lactulose * ammonia levels improving * supportive care (6) Altered mental status: Code(s): R41.82 - Altered mental status, unspecified Status: Acute Assessment and Plan: * slow improvement noted if not resolved * likely secondary to #4 * CT of the head with no acute abnormality (7) CRAWLEY (nonalcoholic steatohepatitis): Code(s): K75.81 - Nonalcoholic steatohepatitis (CRAWLEY) Status: Chronic Assessment and Plan: * chronic issue/problems * no change at this time Not much else to add -- will continue to follow from a distance. Subjective Date/time seen: 03/27/23 09:16 Interval history: Follow-up for acute kidney injury/acute renal failure on chronic kidney disease. He appears to be doing reasonably well at the time of my visit; no apparent distress noted; renal function remains stable with slow improvement in metabolic acidosis with use of sodium bicarbonate; no other issues/events overnight or earlier this morning; still awaiting transfer. Exam Narrative: General: D/WN male in NAD Heart: normal S1 and S2; no rub Lungs: clear anteriorly Abdomen: soft, nontender, nondistended, positive bowel sounds Extremities: no cyanosis or clubbing; no edema Skin: warm and dry Objective Data Vital Signs Vital Signs: Vital Signs Temp Pulse Resp BP Pulse Ox O2 Del Method 03/27/23 09:10 Room Air 03/27/23 09:07 90 03/27/23 09:05 86 16 115/68 100 03/27/23 05:28 98.4 F 72 18 113/65 100 03/26/23 20:00 Room Air 03/26/23 20:12 85 03/26/23 20:09 98.4 F 77
--- NOTE | 2023-03-27 11:01 | PCNWS ---
Weekly nutritional screen. Patient is tolerating current diet with adequate intake. No weight loss reported. No nutritional needs at this time.
[2023-03-27] MEDS: ONDANSETRON HCL ODT 4 MG TABLET PO (17:46)
[2023-03-27] MEDS: METOPROLOL TARTRATE 25 MG TABLET PO (21:41)
[2023-03-28] VITALS (8 sets, daily range): BP systolic 101–122; BP diastolic 54–67; PULSE 60–81; RESP 12–18; TEMP 36.6–36.8; O2SAT 92–99
[2023-03-28 05:02] LABS: Eosinophils Absolute Auto 0.2 K/mm3 (0-0.3); Hematocrit 23.3 % (42.0-52.0); Hemoglobin 7.5 g/dL (14.0-18.0); Immature Granulocyte Absolute 0.01 K/mm3 (0.00-0.031); Immature Granulocyte Percent A 0.2 % (0-0.5); Immature Platelet Fraction Pct 2.2 % (0.9-11.2); Lymphocytes Absolute Auto 0.85 K/mm3 (0.9-3.2); Lymphocytes Percent Auto 20.2 % (18.3-44.2); Mean Corpuscular HGB Conc 32.2 g/dl (32-36); Mean Corpuscular Hemoglobin 31.3 pg (26-34); Mean Corpuscular Volume 97.1 fl (80-100); Mean Platelet Volume 10.5 fl (7.4-10.4); Monocytes Absolute Auto 0.5 K/mm3 (0.1-0.6); Monocytes Percent Auto 10.7 % (2.6-8.5); Neutrophils Absolute Auto 2.7 K/mm3 (1.3-6.7); Neutrophils Percent Auto 63.9 % (45.5-73.1); Platelet Count Result 67 k/mm3 (150-375); White Blood Count 4.2 K/mm3 (4.5-10.0)
[2023-03-28 05:12] LABS: Ammonia 36 umol/L (9-30)
[2023-03-28 05:13] LABS: Alanine Aminotransferase 62 U/L (6-50); Albumin Level 2.6 g/dL (3.5-5.1); Alkaline Phosphatase 169 U/L (38-126); Anion Gap 6 mmol/L (8-16); Aspartate Amino Transferase 64 U/L (17-59); Bilirubin,Total 0.4 mg/dL (0.2-1.3); Blood Urea Nitrogen 13 mg/dL (9-20); Calcium 8.9 mg/dL (8.4-10.2); Carbon Dioxide 18 mmol/L (22-30); Chloride 114 mmol/L (98-107); Estimated CRCL calculation 81 ml/min; Estimated Glomerular Filt Rate 58; Glucose 88 mg/dL (65-110); Magnesium 1.9 mg/dL (1.6-2.3); Potassium 3.8 mmol/L (3.4-5.0); Sodium 138 mmol/L (137-145)
[2023-03-28 06:58] LABS: Platelet Estimate Decreased (Adequate)
[2023-03-28 06:59] LABS: Large Platelets Present; Schistocytes None Seen (NORMAL)
[2023-03-28] MEDS: AMIODARONE HCL 200 MG TABLET 400 MG PO (10:05)
[2023-03-28] MEDS: APIXABAN 5 MG TABLET PO ×2 (10:05→21:15)
[2023-03-28] MEDS: rifAXIMin 550 MG TABLET PO ×2 (10:06→21:16)
[2023-03-28] MEDS: ASPIRIN 81 MG CHEWABLE TABLET PO (10:06)
[2023-03-28] MEDS: FERROUS SULFATE 325 MG TABLET DR PO ×2 (10:06→17:47)
[2023-03-28] MEDS: SIMETHICONE 80 MG TAB.CHEW PO (10:06)
[2023-03-28] MEDS: SODIUM BICARBONATE TAB 650 MG TABLET 1300 MG PO ×2 (10:06→17:47)
[2023-03-28] MEDS: PANTOPRAZOLE 40 MG TABLET PO (10:06)
[2023-03-28] MEDS: LACTULOSE 20 GM/30 ML UDC 30 GM PO ×4 (10:08→21:16)
--- NOTE | 2023-03-28 14:53 | PM.IMPN ---
Progress Note: A&P Assessment and Plan (1) Encephalopathy acute: Code(s): G93.40 - Encephalopathy, unspecified Status: Acute (2) Hyperammonemia: Code(s): E72.20 - Disorder of urea cycle metabolism, unspecified Status: Acute (3) CRAWLEY (nonalcoholic steatohepatitis): Code(s): K75.81 - Nonalcoholic steatohepatitis (CRAWLEY) Status: Acute (4) Cirrhosis: Qualifiers: Hepatic cirrhosis type: unspecified hepatic cirrhosis Ascites presence: without ascites Qualified Code(s): K74.60 - Unspecified cirrhosis of liver Code(s): K74.60 - Unspecified cirrhosis of liver Status: Acute (5) Hepatic encephalopathy: Code(s): K76.82 - Hepatic encephalopathy Status: Acute (6) Acute kidney injury superimposed on chronic kidney disease: Code(s): N17.9 - Acute kidney failure, unspecified; N18.9 - Chronic kidney disease, unspecified Status: Acute (7) Atrial fibrillation: Qualifiers: Atrial fibrillation type: paroxysmal Qualified Code(s): I48.0 - Paroxysmal atrial fibrillation Code(s): I48.91 - Unspecified atrial fibrillation Status: Acute (8) Discitis of lumbar region: Code(s): M46.46 - Discitis, unspecified, lumbar region Status: Acute Plan Hepatic encephalopathy, hyperammonemia, Crawley liver cirrhosis Patient has history of CRAWLEY liver cirrhosis, present ED with chief complaint of confusion CT head shows no acute intracranial issues In the ED, patient was found have hyperammonemia Suspected hepatic encephalopathy superimposed was electrolyte disorder, dehydration On lactulose p.o from 20-30 g t.i.d. p.o. and add rifaximin p.o. Ammonia level coming down EMMY on CKD, hyponatremia Elevated BUN creatinine above baseline Sodium bicarbonate on board Consulted table inspector, creat improved to 1.6 Creatinine BUN is trending down Renal ultrasound reports?6 mm stone at the lower pole of the left kidney without hydronephrosis. Abnormal CT finding CT abdomen showed ?4.1 x 7 cm left inguinal soft tissue mass; diffusion diagnosis includes lymphadenopathy, metastasis, hematoma or pseudoaneurysm. Consult general surgeon for evaluation treatment General surgeon considers the inguinal mass likely hematoma, general surgeon will have him follow-up with Dr. Ireland in the office 1 month after discharge. Lumbar diskitis Radiologist reports prominent irregularity and sclerosis of the apposing vertebral endplates at L3-4; consider discitis, osteomyelitis Ordered lumbar MRI, patient cannot perform MRI because of metal clips in the heart Consult neurosurgeon, recommends to transfer to tertiary hospital for further evaluation and treatment Patient accepted at [facility] awaiting bed placement History of aortic valve replacement Denies chest pain elevated troponin close to baseline, possible due to worsening kidney function GERD Continue PPI SAIGE Continue BiPAP in the night Chronic anemia mild no signs of bleeding continue to monitor Thrombocytopenia chronic likely related to underlying cirrhosis. With coagulopathy Patient has been accepted by the [facility], patient is on waiting list Subjective Date/time seen: 03/28/23 14:53 Interval history: No overnight events. Reports no back pain pain. Denies any new complaints. Review of Systems Review of Systems: All systems reviewed & are unremarkable except as noted in HPI and below Exam Narrative: GENERAL: Pleasant, in no acute distress. Well-nourished. - EYES: EOMI. Anicteric. Jaundice - HENT: Moist mucous membranes. - LUNGS: Clear to auscultation bilaterally, no wheezing, rhonchi, or rales. - CARDIOVASCULAR: Regular rate and rhythm. No murmur. No JVD. - ABDOMEN: Soft, non-tender and some distended. No palpable masses. - EXTREMITIES: No edema. Peripheral pulses 2+. Non-tender. Some low palm and back forger - NEUROLOGIC: No focal neurological deficits. CN II-XII grossly intact. -
[2023-03-28] MEDS: METOPROLOL TARTRATE 25 MG TABLET PO (21:15)
[2023-03-29] VITALS (7 sets, daily range): BP systolic 100–115; BP diastolic 58–70; PULSE 60–74; RESP 16–18; TEMP 36.5–36.9; O2SAT 99–100
[2023-03-29] MEDS: LACTULOSE 20 GM/30 ML UDC 30 GM PO ×4 (00:50→23:51)
[2023-03-29] MEDS: ASPIRIN 81 MG CHEWABLE TABLET PO (10:37)
[2023-03-29] MEDS: PANTOPRAZOLE 40 MG TABLET PO (10:37)
[2023-03-29] MEDS: AMIODARONE HCL 200 MG TABLET 400 MG PO (10:37)
[2023-03-29] MEDS: FERROUS SULFATE 325 MG TABLET DR PO ×2 (10:37→17:53)
[2023-03-29] MEDS: SIMETHICONE 80 MG TAB.CHEW PO (10:37)
[2023-03-29] MEDS: APIXABAN 5 MG TABLET PO ×2 (10:37→21:31)
[2023-03-29] MEDS: rifAXIMin 550 MG TABLET PO ×2 (10:37→21:31)
[2023-03-29] MEDS: SODIUM BICARBONATE TAB 650 MG TABLET 1300 MG PO ×2 (10:46→17:53)
[2023-03-29 12:03] LABS: Basophils Absolute Auto 0.1 K/mm3 (0.0-0.1); Basophils Percent Auto 0.9 % (0.2-1.2); Eosinophils Absolute Auto 0.2 K/mm3 (0-0.3); Eosinophils Percent Auto 3.3 % (0-4.4); Hematocrit 27.8 % (42.0-52.0); Hemoglobin 8.9 g/dL (14.0-18.0); Immature Granulocyte Absolute 0.03 K/mm3 (0.00-0.031); Immature Granulocyte Percent A 0.5 % (0-0.5); Immature Platelet Fraction Pct 2.5 % (0.9-11.2); Lymphocytes Absolute Auto 0.84 K/mm3 (0.9-3.2); Lymphocytes Percent Auto 14.7 % (18.3-44.2); Mean Corpuscular Hemoglobin 31.7 pg (26-34); Mean Corpuscular Volume 98.9 fl (80-100); Monocytes Absolute Auto 0.6 K/mm3 (0.1-0.6); Monocytes Percent Auto 10.7 % (2.6-8.5); Neutrophils Percent Auto 69.9 % (45.5-73.1); Platelet Count Result 95 k/mm3 (150-375); Red Blood Count 2.81 M/mm3 (4.6-6.20); Red Cell Distribution Width 16.4 % (11.5-14.5); White Blood Count 5.7 K/mm3 (4.5-10.0)
[2023-03-29 12:10] LABS: Ammonia 10 umol/L (9-30)
[2023-03-29 12:12] LABS: Alanine Aminotransferase 98 U/L (6-50); Alkaline Phosphatase 206 U/L (38-126); Anion Gap 5 mmol/L (8-16); Aspartate Amino Transferase 99 U/L (17-59); Bilirubin,Total 0.5 mg/dL (0.2-1.3); Blood Urea Nitrogen 11 mg/dL (9-20); Calcium 9.1 mg/dL (8.4-10.2); Carbon Dioxide 21 mmol/L (22-30); Chloride 114 mmol/L (98-107); Estimated CRCL calculation 81 ml/min; Estimated Glomerular Filt Rate 58; Glucose 89 mg/dL (65-110); Potassium 3.7 mmol/L (3.4-5.0); Sodium 140 mmol/L (137-145)
[2023-03-29 12:30] LABS: Large Platelets Present; Platelet Estimate Decreased (Adequate); Schistocytes None Seen (NORMAL)
--- NOTE | 2023-03-29 13:18 | PM.IMPN ---
Progress Note: A&P Assessment and Plan (1) Encephalopathy acute: Code(s): G93.40 - Encephalopathy, unspecified Status: Acute (2) Hyperammonemia: Code(s): E72.20 - Disorder of urea cycle metabolism, unspecified Status: Acute (3) CRAWLEY (nonalcoholic steatohepatitis): Code(s): K75.81 - Nonalcoholic steatohepatitis (CRAWLEY) Status: Acute (4) Cirrhosis: Qualifiers: Hepatic cirrhosis type: unspecified hepatic cirrhosis Ascites presence: without ascites Qualified Code(s): K74.60 - Unspecified cirrhosis of liver Code(s): K74.60 - Unspecified cirrhosis of liver Status: Acute (5) Hepatic encephalopathy: Code(s): K76.82 - Hepatic encephalopathy Status: Acute (6) Acute kidney injury superimposed on chronic kidney disease: Code(s): N17.9 - Acute kidney failure, unspecified; N18.9 - Chronic kidney disease, unspecified Status: Acute (7) Atrial fibrillation: Qualifiers: Atrial fibrillation type: paroxysmal Qualified Code(s): I48.0 - Paroxysmal atrial fibrillation Code(s): I48.91 - Unspecified atrial fibrillation Status: Acute (8) Discitis of lumbar region: Code(s): M46.46 - Discitis, unspecified, lumbar region Status: Acute Plan Hepatic encephalopathy, hyperammonemia, Crawley liver cirrhosis Patient has history of CRAWLEY liver cirrhosis, present ED with chief complaint of confusion CT head shows no acute intracranial issues In the ED, patient was found have hyperammonemia Suspected hepatic encephalopathy superimposed was electrolyte disorder, dehydration On lactulose p.o from 20-30 g t.i.d. p.o. and add rifaximin p.o. Ammonia level coming down titrate dose of lactulose to get 2-3 bowel movement every day EMMY on CKD, hyponatremia Elevated BUN creatinine above baseline Sodium bicarbonate on board Consulted billboard mechanic, creat improved to 1.6 Creatinine BUN is trending down. Diuretics on hold used to be on Bumex 2 mg b.i.d. Renal ultrasound reports?6 mm stone at the lower pole of the left kidney without hydronephrosis. Abnormal CT finding CT abdomen showed ?4.1 x 7 cm left inguinal soft tissue mass; diffusion diagnosis includes lymphadenopathy, metastasis, hematoma or pseudoaneurysm. Consult general surgeon for evaluation treatment General surgeon considers the inguinal mass likely hematoma, general surgeon will have him follow-up with Dr. Ireland in the office 1 month after discharge. Lumbar diskitis Radiologist reports prominent irregularity and sclerosis of the apposing vertebral endplates at L3-4; consider discitis, osteomyelitis Ordered lumbar MRI, patient cannot perform MRI because of metal clips in the heart Consult neurosurgeon, recommends to transfer to tertiary hospital for further evaluation and treatment Patient accepted at [facility] awaiting bed placement History of aortic valve replacement Denies chest pain elevated troponin close to baseline, possible due to worsening kidney function GERD Continue PPI SAIGE Continue BiPAP in the night Chronic anemia mild no signs of bleeding continue to monitor Thrombocytopenia chronic likely related to underlying cirrhosis. With coagulopathy Patient has been accepted by the [facility], patient is on waiting list Subjective Date/time seen: 03/29/23 13:18 Interval history: No overnight events. Reports no back pain pain. Denies any new complaints. Labs reviewed discussed with the transfer center still awaiting bed placement Review of Systems Review of Systems: All systems reviewed & are unremarkable except as noted in HPI and below Exam Narrative: GENERAL: Pleasant, in no acute distress. Well-nourished. - EYES: EOMI. Anicteric. Jaundice - HENT: Moist mucous membranes. - LUNGS: Clear to auscultation bilaterally, no wheezing, rhonchi, or rales. - CARDIOVASCULAR: Regular rate and rhythm. No murmur. No JVD. - ABDOMEN: Soft, non-tender and
[2023-03-29] MEDS: METOPROLOL TARTRATE 25 MG TABLET PO (21:31)
[2023-03-30 05:37] VITALS: BP 102/63; PULSE 55; RESP 18; TEMP 36.6; O2SAT 99
[2023-03-30 06:17] LABS: Basophils Absolute Auto 0.1 K/mm3 (0.0-0.1); Eosinophils Absolute Auto 0.2 K/mm3 (0-0.3); Hematocrit 24.1 % (42.0-52.0); Hemoglobin 7.6 g/dL (14.0-18.0); Immature Granulocyte Absolute 0.03 K/mm3 (0.00-0.031); Immature Granulocyte Percent A 0.5 % (0-0.5); Immature Platelet Fraction Pct 2.6 % (0.9-11.2); Lymphocytes Absolute Auto 0.97 K/mm3 (0.9-3.2); Lymphocytes Percent Auto 16.8 % (18.3-44.2); Mean Corpuscular HGB Conc 31.5 g/dl (32-36); Mean Corpuscular Hemoglobin 31.4 pg (26-34); Mean Corpuscular Volume 99.6 fl (80-100); Mean Platelet Volume 10.6 fl (7.4-10.4); Monocytes Absolute Auto 0.6 K/mm3 (0.1-0.6); Monocytes Percent Auto 10.4 % (2.6-8.5); Neutrophils Absolute Auto 3.9 K/mm3 (1.3-6.7); Neutrophils Percent Auto 67.3 % (45.5-73.1); Platelet Count Result 80 k/mm3 (150-375); Red Blood Count 2.42 M/mm3 (4.6-6.20); Red Cell Distribution Width 16.8 % (11.5-14.5); White Blood Count 5.8 K/mm3 (4.5-10.0)
[2023-03-30 06:22] LABS: Alanine Aminotransferase 74 U/L (6-50); Albumin Level 2.5 g/dL (3.5-5.1); Alkaline Phosphatase 172 U/L (38-126); Anion Gap 2 mmol/L (8-16); Aspartate Amino Transferase 72 U/L (17-59); Bilirubin,Total 0.4 mg/dL (0.2-1.3); Blood Urea Nitrogen 12 mg/dL (9-20); Calcium 8.5 mg/dL (8.4-10.2); Carbon Dioxide 22 mmol/L (22-30); Chloride 113 mmol/L (98-107); Estimated CRCL calculation 88 ml/min; Estimated Glomerular Filt Rate > 60; Glucose 84 mg/dL (65-110); Magnesium 1.9 mg/dL (1.6-2.3); Potassium 3.8 mmol/L (3.4-5.0); Sodium 137 mmol/L (137-145)
[2023-03-30] MEDS: FERROUS SULFATE 325 MG TABLET DR PO ×2 (09:24→17:09)
[2023-03-30] MEDS: rifAXIMin 550 MG TABLET PO ×2 (09:24→21:34)
[2023-03-30] MEDS: ASPIRIN 81 MG CHEWABLE TABLET PO (09:24)
[2023-03-30] MEDS: SIMETHICONE 80 MG TAB.CHEW PO (09:24)
[2023-03-30 09:26] VITALS: PULSE 64
[2023-03-30] MEDS: SODIUM BICARBONATE TAB 650 MG TABLET 1300 MG PO (09:26)
[2023-03-30] MEDS: APIXABAN 5 MG TABLET PO ×2 (09:26→21:34)
[2023-03-30] MEDS: AMIODARONE HCL 200 MG TABLET 400 MG PO (09:26)
[2023-03-30] MEDS: PANTOPRAZOLE 40 MG TABLET PO (09:26)
[2023-03-30] MEDS: LACTULOSE 20 GM/30 ML UDC 30 GM PO ×3 (12:12→23:18)
[2023-03-30 14:00] VITALS: BP 100/60; PULSE 60; RESP 16; TEMP 36.3; O2SAT 99
--- NOTE | 2023-03-30 14:40 | PM.IMPN ---
Progress Note: A&P Assessment and Plan (1) Encephalopathy acute: Code(s): G93.40 - Encephalopathy, unspecified Status: Acute (2) Hyperammonemia: Code(s): E72.20 - Disorder of urea cycle metabolism, unspecified Status: Acute (3) CRAWLEY (nonalcoholic steatohepatitis): Code(s): K75.81 - Nonalcoholic steatohepatitis (CRAWLEY) Status: Acute (4) Cirrhosis: Qualifiers: Hepatic cirrhosis type: unspecified hepatic cirrhosis Ascites presence: without ascites Qualified Code(s): K74.60 - Unspecified cirrhosis of liver Code(s): K74.60 - Unspecified cirrhosis of liver Status: Acute (5) Hepatic encephalopathy: Code(s): K76.82 - Hepatic encephalopathy Status: Acute (6) Acute kidney injury superimposed on chronic kidney disease: Code(s): N17.9 - Acute kidney failure, unspecified; N18.9 - Chronic kidney disease, unspecified Status: Acute (7) Atrial fibrillation: Qualifiers: Atrial fibrillation type: paroxysmal Qualified Code(s): I48.0 - Paroxysmal atrial fibrillation Code(s): I48.91 - Unspecified atrial fibrillation Status: Acute (8) Discitis of lumbar region: Code(s): M46.46 - Discitis, unspecified, lumbar region Status: Acute Plan Hepatic encephalopathy, hyperammonemia, Crawley liver cirrhosis Patient has history of CRAWLEY liver cirrhosis, present ED with chief complaint of confusion CT head shows no acute intracranial issues In the ED, patient was found have hyperammonemia Suspected hepatic encephalopathy superimposed was electrolyte disorder, dehydration On lactulose p.o from 20-30 g t.i.d. p.o. and add rifaximin p.o. Ammonia level coming down titrate dose of lactulose to get 2-3 bowel movement every day EMMY on CKD, hyponatremia Elevated BUN creatinine above baseline Sodium bicarbonate on board Consulted pediatric physician, creat improved to 1.6 Creatinine BUN is trending down. Diuretics on hold used to be on Bumex 2 mg b.i.d. if weight is up will slowly restart Bumex Renal ultrasound reports?6 mm stone at the lower pole of the left kidney without hydronephrosis. Abnormal CT finding CT abdomen showed ?4.1 x 7 cm left inguinal soft tissue mass; diffusion diagnosis includes lymphadenopathy, metastasis, hematoma or pseudoaneurysm. Consult general surgeon for evaluation treatment General surgeon considers the inguinal mass likely hematoma, general surgeon will have him follow-up with Dr. Ireland in the office 1 month after discharge. Lumbar diskitis Radiologist reports prominent irregularity and sclerosis of the apposing vertebral endplates at L3-4; consider discitis, osteomyelitis Ordered lumbar MRI, patient cannot perform MRI because of metal clips in the heart Consult neurosurgeon, recommends to transfer to tertiary hospital for further evaluation and treatment Patient accepted at [facility] awaiting bed placement History of aortic valve replacement Denies chest pain elevated troponin close to baseline, possible due to worsening kidney function GERD Continue PPI SAIGE Continue BiPAP in the night Chronic anemia mild no signs of bleeding continue to monitor Thrombocytopenia chronic likely related to underlying cirrhosis. With coagulopathy Patient has been accepted by the [facility], patient is on waiting list Subjective Date/time seen: 03/30/23 14:40 Interval history: No new complaints. Feels a little bloated. Labs were reviewed Review of Systems Review of Systems: All systems reviewed & are unremarkable except as noted in HPI and below Exam Narrative: GENERAL: Pleasant, in no acute distress. Well-nourished. - EYES: EOMI. Anicteric. Jaundice - HENT: Moist mucous membranes. - LUNGS: Clear to auscultation bilaterally, no wheezing, rhonchi, or rales. - CARDIOVASCULAR: Regular rate and rhythm. No murmur. No JVD. - ABDOMEN: Soft, non-tender and some distended. No palpable masses. - EXTREMITIES
[2023-03-30] MEDS: SODIUM BICARBONATE TAB 650 MG TABLET PO (17:09)
[2023-03-30 21:27] VITALS: BP 106/57; PULSE 62; RESP 16; TEMP 36.6; O2SAT 100
[2023-03-30 21:34] VITALS: PULSE 62
[2023-03-30] MEDS: METOPROLOL TARTRATE 25 MG TABLET PO (21:34)
[2023-03-31] MEDS: LACTULOSE 20 GM/30 ML UDC 30 GM PO ×4 (05:32→23:24)
[2023-03-31 06:04] LABS: Basophils Absolute Auto 0.1 K/mm3 (0.0-0.1); Basophils Percent Auto 0.9 % (0.2-1.2); Eosinophils Absolute Auto 0.1 K/mm3 (0-0.3); Eosinophils Percent Auto 2.3 % (0-4.4); Hematocrit 22.8 % (42.0-52.0); Hemoglobin 7.5 g/dL (14.0-18.0); Immature Granulocyte Absolute 0.03 K/mm3 (0.00-0.031); Immature Granulocyte Percent A 0.6 % (0-0.5); Immature Platelet Fraction Pct 2.5 % (0.9-11.2); Lymphocytes Absolute Auto 0.85 K/mm3 (0.9-3.2); Lymphocytes Percent Auto 16.1 % (18.3-44.2); Mean Corpuscular HGB Conc 32.9 g/dl (32-36); Mean Corpuscular Hemoglobin 32.3 pg (26-34); Mean Corpuscular Volume 98.3 fl (80-100); Mean Platelet Volume 10.2 fl (7.4-10.4); Monocytes Absolute Auto 0.6 K/mm3 (0.1-0.6); Neutrophils Absolute Auto 3.7 K/mm3 (1.3-6.7); Neutrophils Percent Auto 69.1 % (45.5-73.1); Platelet Count Result 77 k/mm3 (150-375); Red Blood Count 2.32 M/mm3 (4.6-6.20); Red Cell Distribution Width 16.8 % (11.5-14.5); White Blood Count 5.3 K/mm3 (4.5-10.0)
[2023-03-31 06:05] VITALS: BP 105/64; PULSE 57; RESP 16; TEMP 36.7; O2SAT 96
[2023-03-31 06:16] LABS: Alanine Aminotransferase 57 U/L (6-50); Albumin Level 2.3 g/dL (3.5-5.1); Alkaline Phosphatase 163 U/L (38-126); Anion Gap 4 mmol/L (8-16); Aspartate Amino Transferase 55 U/L (17-59); Bilirubin,Total 0.4 mg/dL (0.2-1.3); Blood Urea Nitrogen 12 mg/dL (9-20); Calcium 8.6 mg/dL (8.4-10.2); Carbon Dioxide 20 mmol/L (22-30); Chloride 111 mmol/L (98-107); Estimated CRCL calculation 87 ml/min; Estimated Glomerular Filt Rate 58; Glucose 88 mg/dL (65-110); Magnesium 1.9 mg/dL (1.6-2.3); Potassium 3.6 mmol/L (3.4-5.0); Sodium 135 mmol/L (137-145)
[2023-03-31 08:46] VITALS: BP 105/58; PULSE 61; O2SAT 98
[2023-03-31] MEDS: SODIUM BICARBONATE TAB 650 MG TABLET PO ×2 (08:50→17:18)
[2023-03-31] MEDS: rifAXIMin 550 MG TABLET PO ×2 (08:50→20:59)
[2023-03-31] MEDS: SIMETHICONE 80 MG TAB.CHEW PO (08:50)
[2023-03-31] MEDS: APIXABAN 5 MG TABLET PO ×2 (08:50→20:59)
[2023-03-31 08:51] VITALS: PULSE 61
[2023-03-31] MEDS: FERROUS SULFATE 325 MG TABLET DR PO ×2 (08:51→17:18)
[2023-03-31] MEDS: PANTOPRAZOLE 40 MG TABLET PO (08:51)
[2023-03-31] MEDS: AMIODARONE HCL 200 MG TABLET 400 MG PO (08:51)
[2023-03-31] MEDS: ASPIRIN 81 MG CHEWABLE TABLET PO (08:51)
--- NOTE | 2023-03-31 13:16 | PM.IMPN ---
Progress Note: A&P Assessment and Plan (1) Encephalopathy acute: Code(s): G93.40 - Encephalopathy, unspecified Status: Acute (2) Hyperammonemia: Code(s): E72.20 - Disorder of urea cycle metabolism, unspecified Status: Acute (3) CRAWLEY (nonalcoholic steatohepatitis): Code(s): K75.81 - Nonalcoholic steatohepatitis (CRAWLEY) Status: Acute (4) Cirrhosis: Qualifiers: Hepatic cirrhosis type: unspecified hepatic cirrhosis Ascites presence: without ascites Qualified Code(s): K74.60 - Unspecified cirrhosis of liver Code(s): K74.60 - Unspecified cirrhosis of liver Status: Acute (5) Hepatic encephalopathy: Code(s): K76.82 - Hepatic encephalopathy Status: Acute (6) Acute kidney injury superimposed on chronic kidney disease: Code(s): N17.9 - Acute kidney failure, unspecified; N18.9 - Chronic kidney disease, unspecified Status: Acute (7) Atrial fibrillation: Qualifiers: Atrial fibrillation type: paroxysmal Qualified Code(s): I48.0 - Paroxysmal atrial fibrillation Code(s): I48.91 - Unspecified atrial fibrillation Status: Acute (8) Discitis of lumbar region: Code(s): M46.46 - Discitis, unspecified, lumbar region Status: Acute Plan Hepatic encephalopathy, hyperammonemia, Crawley liver cirrhosis Patient has history of CRAWLEY liver cirrhosis, present ED with chief complaint of confusion CT head shows no acute intracranial issues In the ED, patient was found have hyperammonemia Suspected hepatic encephalopathy superimposed was electrolyte disorder, dehydration On lactulose p.o from 20-30 g t.i.d. p.o. and add rifaximin p.o. Ammonia level coming down titrate dose of lactulose to get 2-3 bowel movement every day EMMY on CKD, hyponatremia Elevated BUN creatinine above baseline Sodium bicarbonate on board Consulted information systems technician, creat improved to 1.6 Creatinine BUN is trending down. Diuretics on hold used to be on Bumex 2 mg b.i.d. if weight is up will slowly restart Bumex Renal ultrasound reports?6 mm stone at the lower pole of the left kidney without hydronephrosis. Abnormal CT finding CT abdomen showed ?4.1 x 7 cm left inguinal soft tissue mass; diffusion diagnosis includes lymphadenopathy, metastasis, hematoma or pseudoaneurysm. Consult general surgeon for evaluation treatment General surgeon considers the inguinal mass likely hematoma, general surgeon will have him follow-up with Dr. Ireland in the office 1 month after discharge. Lumbar diskitis Radiologist reports prominent irregularity and sclerosis of the apposing vertebral endplates at L3-4; consider discitis, osteomyelitis Ordered lumbar MRI, patient cannot perform MRI because of metal clips in the heart Consult neurosurgeon, recommends to transfer to tertiary hospital for further evaluation and treatment Patient accepted at [facility] awaiting bed placement Will repeat CT lumbar spine today to evaluate the concerned area. Re-consult Neurosurgery for any updated recommendations. History of aortic valve replacement Denies chest pain elevated troponin close to baseline, possible due to worsening kidney function GERD Continue PPI SAIGE Continue BiPAP in the night Chronic anemia mild no signs of bleeding continue to monitor Thrombocytopenia chronic likely related to underlying cirrhosis. With coagulopathy Patient has been accepted by the [facility], patient is on waiting list Subjective Date/time seen: 03/31/23 13:16 Interval history: No new complaints. Feels a little bloated. Labs were reviewed. Working with therapy Review of Systems Review of Systems: All systems reviewed & are unremarkable except as noted in HPI and below Exam Narrative: GENERAL: Pleasant, in no acute distress. Well-nourished. - EYES: EOMI. Anicteric. Jaundice - HENT: Moist mucous membranes. - LUNGS: Clear to auscultation bilaterally, no wheezing, rhonchi, or r
[2023-03-31 14:00] VITALS: BP 99/53; PULSE 60; RESP 20; TEMP 36.6; O2SAT 99
[2023-03-31 19:50] VITALS: BP 110/61; PULSE 65; RESP 14; TEMP 36.6; O2SAT 100
[2023-03-31 20:59] VITALS: PULSE 65
[2023-03-31] MEDS: METOPROLOL TARTRATE 25 MG TABLET PO (20:59)
[2023-04-01] VITALS (9 sets, daily range): BP systolic 100–109; BP diastolic 55–65; PULSE 59–63; RESP 16–18; TEMP 36.3–36.6; O2SAT 96–100
[2023-04-01] MEDS: LACTULOSE 20 GM/30 ML UDC 30 GM PO ×3 (05:33→17:18)
[2023-04-01 06:18] LABS: Basophils Absolute Auto 0.1 K/mm3 (0.0-0.1); Basophils Percent Auto 1.1 % (0.2-1.2); Eosinophils Absolute Auto 0.1 K/mm3 (0-0.3); Eosinophils Percent Auto 2.5 % (0-4.4); Hematocrit 24.4 % (42.0-52.0); Hemoglobin 7.8 g/dL (14.0-18.0); Immature Granulocyte Absolute 0.02 K/mm3 (0.00-0.031); Immature Granulocyte Percent A 0.4 % (0-0.5); Lymphocytes Absolute Auto 0.88 K/mm3 (0.9-3.2); Lymphocytes Percent Auto 15.8 % (18.3-44.2); Mean Corpuscular Hemoglobin 32.1 pg (26-34); Mean Corpuscular Volume 100.4 fl (80-100); Mean Platelet Volume 10.7 fl (7.4-10.4); Monocytes Absolute Auto 0.8 K/mm3 (0.1-0.6); Monocytes Percent Auto 14.5 % (2.6-8.5); Neutrophils Absolute Auto 3.7 K/mm3 (1.3-6.7); Neutrophils Percent Auto 65.7 % (45.5-73.1); Platelet Count Result 82 k/mm3 (150-375); Red Blood Count 2.43 M/mm3 (4.6-6.20); Red Cell Distribution Width 17.3 % (11.5-14.5); White Blood Count 5.6 K/mm3 (4.5-10.0)
[2023-04-01 06:29] LABS: Alanine Aminotransferase 60 U/L (6-50); Albumin Level 2.5 g/dL (3.5-5.1); Alkaline Phosphatase 168 U/L (38-126); Anion Gap 5 mmol/L (8-16); Aspartate Amino Transferase 59 U/L (17-59); Bilirubin,Total 0.4 mg/dL (0.2-1.3); Blood Urea Nitrogen 13 mg/dL (9-20); Calcium 8.9 mg/dL (8.4-10.2); Carbon Dioxide 21 mmol/L (22-30); Chloride 113 mmol/L (98-107); Estimated CRCL calculation 80 ml/min; Estimated Glomerular Filt Rate 53; Glucose 90 mg/dL (65-110); Potassium 3.7 mmol/L (3.4-5.0); Sodium 139 mmol/L (137-145)
[2023-04-01] MEDS: APIXABAN 5 MG TABLET PO ×2 (08:42→20:09)
[2023-04-01] MEDS: SIMETHICONE 80 MG TAB.CHEW PO (08:43)
[2023-04-01] MEDS: ASPIRIN 81 MG CHEWABLE TABLET PO (08:43)
[2023-04-01] MEDS: FERROUS SULFATE 325 MG TABLET DR PO ×2 (08:43→17:17)
[2023-04-01] MEDS: rifAXIMin 550 MG TABLET PO ×2 (08:43→20:09)
[2023-04-01] MEDS: SODIUM BICARBONATE TAB 650 MG TABLET PO ×2 (08:43→17:17)
[2023-04-01] MEDS: METOPROLOL TARTRATE 25 MG TABLET PO ×2 (08:43→20:09)
[2023-04-01 08:44] LABS: Anisocytosis 1+ (NORMAL); Ovalocytes 1+ (NORMAL); Platelet Estimate Decreased (Adequate)
[2023-04-01] MEDS: PANTOPRAZOLE 40 MG TABLET PO (08:44)
[2023-04-01] MEDS: AMIODARONE HCL 200 MG TABLET 400 MG PO (08:44)
[2023-04-01 08:45] LABS: Schistocytes None Seen (NORMAL)
--- NOTE | 2023-04-01 08:53 | WPDNEUROSGPN ---
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 Recent workup included CT abd/pelvis showing abnormal findings at L3-4, suspicious for discitis/osteomyelitis.? It is not clear if the L3-4 findings represent chronic changes from his previous infection versus active.? We do not have any previous records documenting what levels of his lumbar spine where involved. An MRI of the lumbar spine with/without contrast was recommended on our initial consult to evaluate for active vs chronic changes, unfortunately the patient is unable to have the MRI at [facility] due to metal clips used from his heart surgery and therefore it was recommended to transfer patient were an MRI can be performed and compared to his prior imaging, along with infectious disease consult which [place] does not have. The patient has been on the [place] transfer list for over a week. The patient remains neurologically intact with baseline mild Left proximal leg weakness, and no significant low back pain complaints. Patient's infection labs showed mildly elevated CRP of 3.5 and ESR of 119, normal Procalcitonin of 0.1. A repeat CT lumbar study was performed yesterday and shows no significant change to the endplate erosions seen at L3-[address] abd/pelvis from 03/18/23. It would be beneficial for the overall care of this complicated patient to have a contrasted lumbar MRI study, preferably at the previous facility where his prior spine imaging has been done, given that there is no prior imaging to compare and still a concern that this could represent a slow indolent but active infection. This case was discussed with my attending Dr. Abdoul Downey PA-C Please call with any questions [place] office # [phone] Subjective Date/time seen: 04/01/23 08:53 Objective Data Vital Signs Vital Signs: Vital Signs - 24 hr 03/31/23 14:00 03/31/23 19:50 03/31/23 20:59 Temperature 97.9 F 97.9 F Pulse Rate 60 65 65 Respiratory Rate 20 14 Blood Pressure 99/53 L 110/61 Pulse Oximetry 99 100 Oxygen Delivery 03/31/23 20:00 04/01/23 06:18 04/01/23 07:58 Temperature 97.8 F Pulse Rate 60 Respiratory Rate 16 Blood Pressure 100/55 L Pulse Oximetry 97 96 Oxygen Delivery Room Air Room Air 04/01/23 08:38 04/01/23 08:43 04/01/23 08:44 Temperature Pulse Rate 62 63 63 Respiratory Rate Blood Pressure 103/63 Pulse Oximetry 100 Oxygen Delivery Intake/Output Intake/Output: Intake & Output 03/29/23 03/30/23 03/31/23 04/01/23 23:59 23:59 23:59 23:59 Intake Total 870 1340 1660 400 Output Total 400 839 694 9872 Balance 730 114 4002 -700 Meds/Results Medications: Active Medications Generic Name Dose Route Start Last Admin Trade Name Rolandoq PRN Reason Stop Dose Admin Amiodarone HCl 400 mg 03/19/23 09:00 04/01/23 08:44 Amiodarone Hcl 200 Mg Tablet PO 04/18/23 08:59 400 mg DAILY CAROL Administration Apixaban 5 mg 03/19/23 09:00 04/01/23 08:42 Apixaban 5 Mg Tablet PO 5 mg Q12HR CAROL Administration Aspirin 81 mg 03/19/23 09:00 04/01/23 08:43 Aspirin 81 Mg Chewable Tablet PO 81 mg DAILY CAROL Administration Ferrous Sulfate 325 mg 03/26/23 17:00 04/01/23 08:43 Ferrous Sulfate [address] PO 325 mg BID CAROL Administration Lactulose 30 gm 03/29/23 12:00 04/01/23 05:33 Lactulose 20 Gm/30 Ml Udc PO 30 gm Q6HR CAROL Administration Metoprolol Tartrate 25 mg 03/19/23 09:00 04/01/23 08:43 Metoprolol Tartrate 25 Mg Tablet PO 25 mg Q12HR CAROL Administration Ondansetron HCl 4 mg 03/27/23 15:29 03/27/23
[2023-04-01] MEDS: ACETAMINOPHEN 325 MG TABLET 650 MG PO (12:22)
--- NOTE | 2023-04-01 19:02 | PM.IMPN ---
Progress Note: A&P Assessment and Plan (1) Hepatic encephalopathy: Code(s): K76.82 - Hepatic encephalopathy Status: Acute Assessment and Plan: Patient presented ED with chief complaint of confusion and found to have hepatic encephalopathy with hyperammonemia from liver cirrhosis CT head shows no acute intracranial issues In the ED, patient was found have hyperammonemia Suspected hepatic encephalopathy superimposed was electrolyte disorder, dehydration On lactulose and rifaximin added Confusion resolved Titrate lactulose to get 2-3 bowel movement every day (2) Encephalopathy acute: Code(s): G93.40 - Encephalopathy, unspecified Status: Acute Assessment and Plan: Related to above (3) Hyperammonemia: Code(s): E72.20 - Disorder of urea cycle metabolism, unspecified Status: Acute Assessment and Plan: Related to cirrhosis (4) Cirrhosis: Qualifiers: Hepatic cirrhosis type: unspecified hepatic cirrhosis Ascites presence: without ascites Qualified Code(s): K74.60 - Unspecified cirrhosis of liver Code(s): K74.60 - Unspecified cirrhosis of liver Status: Acute Assessment and Plan: 2nd to CRAWLEY (5) Acute kidney injury superimposed on chronic kidney disease: Code(s): N17.9 - Acute kidney failure, unspecified; N18.9 - Chronic kidney disease, unspecified Status: Acute Assessment and Plan: EMMY with Cr at 3.2. Patient with CKD with baseline Cr running 1.3-1.4. Sodium bicarbonate added Medical Secretary Receptionist consulted and appreciate their input Renal US showing 6mm stone lower pole left kidney without hydronephrosis. Cr back down to 1.4. Diuretics on hold; was on Bumex 2 mg b.i.d Resume Bumex as tolerated. (6) Atrial fibrillation: Qualifiers: Atrial fibrillation type: paroxysmal Qualified Code(s): I48.0 - Paroxysmal atrial fibrillation Code(s): I48.91 - Unspecified atrial fibrillation Status: Acute (7) Discitis of lumbar region: Code(s): M46.46 - Discitis, unspecified, lumbar region Status: Acute Assessment and Plan: On imaging. radiologist reports prominent irregularity and sclerosis of the apposing vertebral endplates at L3-4; consider discitis, osteomyelitis Ordered lumbar MRI, patient cannot perform MRI because of metal clips in the heart Neurosurgeon consulted and appreciate their input. They recommend patient be transfered to tertiary hospital for further evaluation and treatment Repeat CT lumbar spine showing no change Patient accepted at [facility] awaiting bed placement Plan Abnormal CT finding - CT abdomen showed ?4.1 x 7 cm left inguinal soft tissue mass; diffusion diagnosis includes lymphadenopathy, metastasis, hematoma or pseudoaneurysm. Consult general surgeon for evaluation treatment. General surgeon considers the inguinal mass likely hematoma, general surgeon will have him follow-up with Dr. Ireland in the office 1 month after discharge. History of aortic valve replacement - Denies chest pain Elevated troponin - close to baseline, possible due to worsening kidney function GERD - Continue PPI SAIGE - Continue BiPAP in the night Chronic anemia mild no signs of bleeding continue to monitor Thrombocytopenia - chronic likely related to underlying cirrhosis. With coagulopathy DVT prophylaxis - Eliquis Code status - full Subjective Date/time seen: 04/01/23 19:02 Interval history: 52yo male with cirrhosis, CKD and pAFib here for altered mental status. Assuming care. Chart reviewed. Slept off and on last night. No CP or SOB. No back pain. Hx of possible diskitis and underwent what sounds like a biopsy for cx in July. He has been mostly bed ridden in June but that his strength is slowly improving. Able to stand and take a few steps in the room with therapy. Exam Narrative: AF 97.3 101/65 62 18 100% ra Gen - NARD Chest - CTA bilaterally, nml
[2023-04-02] VITALS (7 sets, daily range): BP systolic 107–116; BP diastolic 62–67; PULSE 54–60; RESP 17–18; TEMP 36.4–37; O2SAT 99–100
[2023-04-02] MEDS: LACTULOSE 20 GM/30 ML UDC 30 GM PO ×3 (05:44→21:16)
[2023-04-02 06:28] LABS: Basophils Absolute Auto 0.1 K/mm3 (0.0-0.1); Eosinophils Absolute Auto 0.1 K/mm3 (0-0.3); Eosinophils Percent Auto 2.7 % (0-4.4); Hematocrit 24.6 % (42.0-52.0); Immature Granulocyte Absolute 0.02 K/mm3 (0.00-0.031); Immature Granulocyte Percent A 0.4 % (0-0.5); Immature Platelet Fraction Pct 2.4 % (0.9-11.2); Lymphocytes Absolute Auto 0.91 K/mm3 (0.9-3.2); Lymphocytes Percent Auto 17.3 % (18.3-44.2); Mean Corpuscular HGB Conc 32.5 g/dl (32-36); Mean Corpuscular Hemoglobin 31.9 pg (26-34); Mean Platelet Volume 10.3 fl (7.4-10.4); Monocytes Absolute Auto 0.6 K/mm3 (0.1-0.6); Monocytes Percent Auto 11.8 % (2.6-8.5); Neutrophils Absolute Auto 3.5 K/mm3 (1.3-6.7); Neutrophils Percent Auto 66.8 % (45.5-73.1); Platelet Count Result 83 k/mm3 (150-375); Red Blood Count 2.51 M/mm3 (4.6-6.20); Red Cell Distribution Width 17.8 % (11.5-14.5); White Blood Count 5.3 K/mm3 (4.5-10.0)
[2023-04-02 06:39] LABS: Albumin Level 2.6 g/dL (3.5-5.1); Anion Gap 6 mmol/L (8-16); Blood Urea Nitrogen 12 mg/dL (9-20); CRP < 0.5 mg/dL (<1.0); Calcium 8.6 mg/dL (8.4-10.2); Carbon Dioxide 20 mmol/L (22-30); Chloride 112 mmol/L (98-107); Estimated CRCL calculation 76 ml/min; Estimated Glomerular Filt Rate 49; Glucose 85 mg/dL (65-110); Magnesium 1.9 mg/dL (1.6-2.3); Phosphorus 3.4 mg/dL (2.5-4.5); Potassium 3.5 mmol/L (3.4-5.0); Sodium 138 mmol/L (137-145)
[2023-04-02 07:15] LABS: Procalcitonin 0.1 ng/mL
[2023-04-02] MEDS: ASPIRIN 81 MG CHEWABLE TABLET PO (08:20)
[2023-04-02] MEDS: SIMETHICONE 80 MG TAB.CHEW PO (08:20)
[2023-04-02] MEDS: APIXABAN 5 MG TABLET PO ×2 (08:21→21:15)
[2023-04-02] MEDS: AMIODARONE HCL 200 MG TABLET 400 MG PO (08:21)
[2023-04-02] MEDS: rifAXIMin 550 MG TABLET PO ×2 (08:21→21:15)
[2023-04-02] MEDS: PANTOPRAZOLE 40 MG TABLET PO (08:21)
[2023-04-02] MEDS: SODIUM BICARBONATE TAB 650 MG TABLET PO ×2 (08:21→16:51)
[2023-04-02] MEDS: METOPROLOL TARTRATE 25 MG TABLET PO ×2 (08:22→21:15)
[2023-04-02] MEDS: FERROUS SULFATE 325 MG TABLET DR PO ×2 (08:22→16:52)
[2023-04-02] MEDS: ACETAMINOPHEN 325 MG TABLET 650 MG PO (09:39)
--- NOTE | 2023-04-02 13:19 | PM.IMPN ---
Progress Note: A&P Assessment and Plan (1) Hepatic encephalopathy: Code(s): K76.82 - Hepatic encephalopathy Status: Acute Assessment and Plan: Patient presented ED with chief complaint of confusion and found to have hepatic encephalopathy with hyperammonemia from liver cirrhosis CT head shows no acute intracranial issues. Ammonia level elevated to 108 Suspected hepatic encephalopathy superimposed was electrolyte disorder, dehydration On lactulose and rifaximin added Confusion resolved Titrate lactulose to get 2-3 bowel movement every day (2) Discitis of lumbar region: Code(s): M46.46 - Discitis, unspecified, lumbar region Status: Acute Assessment and Plan: On imaging. radiologist reports prominent irregularity and sclerosis of the apposing vertebral endplates at L3-4; consider discitis, osteomyelitis Ordered lumbar MRI but patient cannot have MRI here because of metal clips in the heart Neurosurgeon consulted and appreciate their input. They recommend patient be transferred to tertiary hospital for further evaluation and treatment Repeat CT lumbar spine showing no change Patient accepted at [facility] and awaiting bed placement (3) Acute kidney injury superimposed on chronic kidney disease: Code(s): N17.9 - Acute kidney failure, unspecified; N18.9 - Chronic kidney disease, unspecified Status: Acute Assessment and Plan: EMMY with Cr at 3.2. Patient with CKD with baseline Cr running 1.3-1.4. Sodium bicarbonate added Brewery Cellar Worker consulted and appreciate their input Renal US showing 6mm stone lower pole left kidney without hydronephrosis. Cr 1.5 today Diuretics on hold; was on Bumex 2 mg b.i.d and Spironolactone Edema worse but still mild. Edema is asymmetric which is new for him - will check doppler (patient already on Eliquis but is high risk) Continue to hold diuretics for now (4) Encephalopathy acute: Code(s): G93.40 - Encephalopathy, unspecified Status: Acute Assessment and Plan: Related to above (5) Hyperammonemia: Code(s): E72.20 - Disorder of urea cycle metabolism, unspecified Status: Acute Assessment and Plan: Related to cirrhosis (6) Cirrhosis: Qualifiers: Hepatic cirrhosis type: unspecified hepatic cirrhosis Ascites presence: without ascites Qualified Code(s): K74.60 - Unspecified cirrhosis of liver Code(s): K74.60 - Unspecified cirrhosis of liver Status: Acute Assessment and Plan: 2nd to CRAWLEY (7) Atrial fibrillation: Qualifiers: Atrial fibrillation type: paroxysmal Qualified Code(s): I48.0 - Paroxysmal atrial fibrillation Code(s): I48.91 - Unspecified atrial fibrillation Status: Acute Assessment and Plan: EKG on admission showing NSR with first degree AVB, delayed tranition and ST-T wave changes in the high lateral leads. Metoprolol continued Eliquis continued. Plan Abnormal CT finding - CT abdomen showed ?4.1 x 7 cm left inguinal soft tissue mass; diffusion diagnosis includes lymphadenopathy, metastasis, hematoma or pseudoaneurysm. General surgeon considers the inguinal mass likely hematoma. Plan for patient to follow-up with Dr. Ireland in the office 1 month after discharge. History of aortic valve replacement - stable GERD - Continue PPI SAIGE - Continue BiPAP in the night Chronic anemia - no signs of bleeding. No schistoocytes. Continue to monitor. check iron, etc Thrombocytopenia - chronic likely related to underlying cirrhosis. DVT prophylaxis - Eliquis Code status - full Subjective Date/time seen: 04/02/23 13:19 Interval history: 52yo male with cirrhosis, CKD and pAFib here for altered mental status. He is having BMs x3 per day. No issues overnight. Slept well. Exam Narrative: AF 97.6 110/64 60 18 100% ra Gen - NARD Chest - CTA bilaterally, nml RR CV - RRR S1/S2 with 2/6 murmur USB Abd
[2023-04-03] VITALS (7 sets, daily range): BP systolic 96–110; BP diastolic 50–71; PULSE 51–64; RESP 18–20; TEMP 36.1–36.6; O2SAT 97–100
--- NOTE | 2023-04-03 | ECHO_ITS ---
Patient Info Name: Vinay Chawla Age: 52 years : 1970 Gender: Male Ht: 74 in Wt: 297 lbs BSA: 2.70 m2 HR: 73 bpm BP: 109 / 71 mmHg Technical Quality: Fair Exam Date: 04/03/2023 3:16 PM Exam Location: Echo Lab Exam Room: 243 Patient Status: Inpatient Admit Date: 03/21/2023 Staff Ordering Physician: Christopher De Leon MD Loan Operations Specialist: Nichelle Ellsworth RCS Attending Provider: Miladis Womack Exam Type: CA echo doppler color flow Study Info Indications - murmur AVR R/O VEGETATION DISKITIS Complete two-dimensional, color flow and Doppler transthoracic echocardiogram is performed. Summary 1. Complete two-dimensional, color flow and Doppler transthoracic echocardiogram is performed. 2. Mild LV enlargement, moderate LVH, hyperdynamic LV systolic function, ejection fraction more than 70%; grade 2 diastolic dysfunction. Normal RV size and systolic function. Moderate left atrial enlargement, mild right atrial enlargement. Aortic valve appears mildly sclerotic, mild aortic stenosis, SERAFIN 2.1 cm2. Mild mitral annular calcification, mild MR. Mild tricuspid regurgitation, moderate pulmonary hypertension, RVSP 50 mmHg. Left Ventricle Left ventricular chamber dimension is mildly enlarged. Left ventricular systolic function is hyperdynamic, estimated at >70%. There is moderately increased left ventricular wall thickness. The left ventricular diastolic function is grade II diastolic dysfunction. Right Ventricle Right ventricular chamber dimension is normal. Right ventricular systolic function is normal. Left Atria Left atrial chamber dimension is moderately enlarged. Right Atria Right atrial chamber dimension is mildly enlarged. Aortic Valve There is mild aortic valve sclerosis. There is mild aortic valve stenosis with a peak velocity of 260 cm/s, mean gradient of 17 mmHg, and aortic valve area of 2.1 cm2. Pulmonic Valve The pulmonic valve is normal. There is mild pulmonic regurgitation. Mitral Valve There is mild mitral valve regurgitation. The mitral valve annulus is mildly calcified. Tricuspid Valve There is mild tricuspid valve regurgitation. Moderate pulmonary hypertension, estimated pulmonary arterial systolic pressure is 50 mmHg. Pericardium/Pleural The pericardium appears normal. Aorta The aortic root size at the sinus of Valsalva is normal. Left Ventricular Outflow Tract Name Value Normal LVOT 2D LVOT Diameter 2.1 cm LVOT Doppler LVOT Peak Gradient 9 mmHg LVOT Mean Gradient 6 mmHg LVOT VTI 38 cm LVOT VTI/AV VTI Ratio 0.6 LVOT Stroke Volume 129 ml LVOT CO 25.1 l/min LVOT CI 9.3 l/min/m2 Pulmonic Valve Name Value Normal PV Doppler PV Peak Gradient 4 mmHg Mitral Valve
[2023-04-03 04:35] LABS: Basophils Absolute Auto 0.1 K/mm3 (0.0-0.1); Basophils Percent Auto 1.1 % (0.2-1.2); Eosinophils Absolute Auto 0.2 K/mm3 (0-0.3); Eosinophils Percent Auto 2.9 % (0-4.4); Hematocrit 23.2 % (42.0-52.0); Hemoglobin 7.7 g/dL (14.0-18.0); Immature Granulocyte Absolute 0.03 K/mm3 (0.00-0.031); Immature Granulocyte Percent A 0.5 % (0-0.5); Immature Platelet Fraction Pct 2.6 % (0.9-11.2); Lymphocytes Absolute Auto 0.96 K/mm3 (0.9-3.2); Lymphocytes Percent Auto 17.3 % (18.3-44.2); Mean Corpuscular HGB Conc 33.2 g/dl (32-36); Mean Corpuscular Hemoglobin 32.4 pg (26-34); Mean Corpuscular Volume 97.5 fl (80-100); Mean Platelet Volume 9.7 fl (7.4-10.4); Monocytes Absolute Auto 0.6 K/mm3 (0.1-0.6); Monocytes Percent Auto 10.3 % (2.6-8.5); Neutrophils Absolute Auto 3.8 K/mm3 (1.3-6.7); Neutrophils Percent Auto 67.9 % (45.5-73.1); Platelet Count Result 85 k/mm3 (150-375); Red Blood Count 2.38 M/mm3 (4.6-6.20); White Blood Count 5.6 K/mm3 (4.5-10.0)
[2023-04-03 04:48] LABS: Alanine Aminotransferase 53 U/L (6-50); Albumin Level 2.4 g/dL (3.5-5.1); Alkaline Phosphatase 161 U/L (38-126); Ammonia 10 umol/L (9-30); Anion Gap 5 mmol/L (8-16); Aspartate Amino Transferase 55 U/L (17-59); Bilirubin,Total 0.5 mg/dL (0.2-1.3); Blood Urea Nitrogen 12 mg/dL (9-20); Calcium 8.5 mg/dL (8.4-10.2); Carbon Dioxide 21 mmol/L (22-30); Chloride 111 mmol/L (98-107); Estimated CRCL calculation 81 ml/min; Estimated Glomerular Filt Rate 53; Glucose 90 mg/dL (65-110); Potassium 3.7 mmol/L (3.4-5.0); Sodium 137 mmol/L (137-145)
[2023-04-03 05:03] LABS: Iron 76 ug/dL (49-181)
[2023-04-03 05:13] LABS: Percent Iron Saturation 38 % (20-50)
[2023-04-03] MEDS: LACTULOSE 20 GM/30 ML UDC 30 GM PO ×4 (05:17→23:59)
[2023-04-03 05:53] LABS: Folic Acid 4.3 ng/mL (2.76->20)
[2023-04-03] MEDS: APIXABAN 5 MG TABLET PO ×2 (08:59→20:32)
[2023-04-03] MEDS: AMIODARONE HCL 200 MG TABLET 400 MG PO (08:59)
[2023-04-03] MEDS: METOPROLOL TARTRATE 25 MG TABLET PO (09:00)
[2023-04-03] MEDS: FERROUS SULFATE 325 MG TABLET DR PO ×2 (09:00→17:49)
[2023-04-03] MEDS: ASPIRIN 81 MG CHEWABLE TABLET PO (09:00)
[2023-04-03] MEDS: SODIUM BICARBONATE TAB 650 MG TABLET PO ×2 (09:01→17:49)
[2023-04-03] MEDS: PANTOPRAZOLE 40 MG TABLET PO (09:01)
[2023-04-03] MEDS: rifAXIMin 550 MG TABLET PO ×2 (09:01→20:32)
[2023-04-03] MEDS: SIMETHICONE 80 MG TAB.CHEW PO (09:01)
[2023-04-03] MEDS: ACETAMINOPHEN 325 MG TABLET 650 MG PO (09:02)
--- NOTE | 2023-04-03 09:23 | PCNWS ---
Weekly nutritional screen. Patient is tolerating current Renal dialysis diet with adequate intake at 100%. No weight loss reported. No nutritional needs at this time.
--- NOTE | 2023-04-03 09:51 | PM.IMPN ---
Progress Note: A&P Assessment and Plan (1) Hepatic encephalopathy: Code(s): K76.82 - Hepatic encephalopathy Status: Acute Assessment and Plan: Patient presented ED with confusion and found to have hepatic encephalopathy CT head shows no acute intracranial issues. Ammonia level elevated to 108 Suspected hepatic encephalopathy superimposed was electrolyte disorder, dehydration On lactulose and rifaximin added Confusion resolved Titrate lactulose to get 2-3 bowel movement every day No BM yesterday - will monitor for now. (2) Discitis of lumbar region: Code(s): M46.46 - Discitis, unspecified, lumbar region Status: Acute Assessment and Plan: On imaging. radiologist reports prominent irregularity and sclerosis of the apposing vertebral endplates at L3-4; consider discitis, osteomyelitis Lumbar MRI ordered but patient cannot have MRI here because of metal clips Neurosurgeon consulted and appreciate their input. They recommend patient be transferred to tertiary hospital for further evaluation and treatment Repeat CT lumbar spine showing similar findings He is feeling weaker and subtle change in the left leg. Repeat BCx. Check Echo. Consider starting abx but would benefit to have tissue diagnosis. Patient accepted at [facility] and awaiting bed placement (3) Acute kidney injury superimposed on chronic kidney disease: Code(s): N17.9 - Acute kidney failure, unspecified; N18.9 - Chronic kidney disease, unspecified Status: Acute Assessment and Plan: EMMY with Cr at 3.2. Patient with CKD with baseline Cr running 1.3-1.4.? Sodium bicarbonate added Box Packer consulted and appreciate their input Renal US showing 6mm stone lower pole left kidney without hydronephrosis. Cr 1.4 today Diuretics on hold; was on Bumex 2 mg b.i.d and Spironolactone Edema mild. Edema was asymmetric but doppler negative for DVT Will resume diuretics at low dose (4) Hyperammonemia: Code(s): E72.20 - Disorder of urea cycle metabolism, unspecified Status: Acute Assessment and Plan: Related to cirrhosis (5) Cirrhosis: Qualifiers: Ascites presence: without ascites Hepatic cirrhosis type: unspecified hepatic cirrhosis Qualified Code(s): K74.60 - Unspecified cirrhosis of liver Code(s): K74.60 - Unspecified cirrhosis of liver Status: Acute Assessment and Plan: 2nd to CRAWLEY (6) Atrial fibrillation: Qualifiers: Atrial fibrillation type: paroxysmal Qualified Code(s): I48.0 - Paroxysmal atrial fibrillation Code(s): I48.91 - Unspecified atrial fibrillation Status: Acute Assessment and Plan: EKG on admission showing NSR with first degree AVB, delayed tranition and ST-T wave changes in the high lateral leads. Metoprolol continued Eliquis continued. Plan Abnormal CT finding - CT abdomen showed??4.1 x 7 cm left inguinal soft tissue mass; differential diagnosis includes lymphadenopathy, metastasis, hematoma or pseudoaneurysm.?General surgeon considers the inguinal mass likely hematoma. Plan for patient to follow-up with Dr. Ireland in the office 1 month after discharge. History of aortic valve replacement - stable. check Echo GERD - Continue PPI SAIGE? - appears bipap never ordered on admission. Will order BiPAP today Chronic anemia - no signs of bleeding. No schistocytes. Irons studies consistent with anemia of chronic dz. Continue to monitor. Thrombocytopenia - chronic likely related to underlying cirrhosis. DVT prophylaxis - Eliquis Code status - full Subjective Date/time seen: 04/03/23 09:51 Interval history: 52yo male with cirrhosis, CKD and pAFib here for altered mental status. Feels bloated. No problems overnight but not sleeping well. He does wear CPAP at night and has not been using here. No BM yesterday but had 3 the day before. No CP or SOB. Feels he has less endurance and having to use his arms to
[2023-04-03] MEDS: BUMETANIDE 1 MG TABLET PO ×2 (12:28→20:32)
[2023-04-03] MEDS: BISACODYL 10 MG SUPPOSITORY RECTAL (17:18)
[2023-04-04] VITALS (8 sets, daily range): BP systolic 101–117; BP diastolic 56–66; PULSE 55–68; RESP 16–20; TEMP 36.5–36.8; O2SAT 97–100
[2023-04-04] MEDS: LACTULOSE 20 GM/30 ML UDC 30 GM PO ×3 (05:39→17:45)
[2023-04-04 06:07] LABS: Hematocrit 23.5 % (42.0-52.0); Hemoglobin 7.4 g/dL (14.0-18.0); Mean Corpuscular HGB Conc 31.5 g/dl (32-36); Mean Corpuscular Hemoglobin 31.8 pg (26-34); Mean Corpuscular Volume 100.9 fl (80-100); Mean Platelet Volume 10.6 fl (7.4-10.4); Platelet Count Result 73 k/mm3 (150-375); Red Blood Count 2.33 M/mm3 (4.6-6.20); Red Cell Distribution Width 18.5 % (11.5-14.5); White Blood Count 4.9 K/mm3 (4.5-10.0)
[2023-04-04 06:28] LABS: Albumin Level 2.5 g/dL (3.5-5.1); Anion Gap 6 mmol/L (8-16); Blood Urea Nitrogen 13 mg/dL (9-20); Calcium 8.3 mg/dL (8.4-10.2); Carbon Dioxide 22 mmol/L (22-30); Chloride 110 mmol/L (98-107); Estimated CRCL calculation 81 ml/min; Estimated Glomerular Filt Rate 53; Glucose 87 mg/dL (65-110); Magnesium 1.9 mg/dL (1.6-2.3); Phosphorus 3.6 mg/dL (2.5-4.5); Potassium 3.3 mmol/L (3.4-5.0); Sodium 138 mmol/L (137-145)
[2023-04-04] MEDS: SODIUM BICARBONATE TAB 650 MG TABLET PO ×2 (08:50→17:44)
[2023-04-04] MEDS: BUMETANIDE 1 MG TABLET PO ×2 (08:50→17:45)
[2023-04-04] MEDS: ASPIRIN 81 MG CHEWABLE TABLET PO (08:50)
[2023-04-04] MEDS: SIMETHICONE 80 MG TAB.CHEW PO (08:50)
[2023-04-04] MEDS: POTASSIUM CHLORIDE 20 MEQ ER TABLET 40 MEQ PO (08:51)
[2023-04-04] MEDS: PANTOPRAZOLE 40 MG TABLET PO (08:51)
[2023-04-04] MEDS: METOPROLOL TARTRATE 25 MG TABLET PO ×2 (08:51→21:32)
[2023-04-04] MEDS: rifAXIMin 550 MG TABLET PO ×2 (08:52→21:32)
[2023-04-04] MEDS: FERROUS SULFATE 325 MG TABLET DR PO ×2 (08:52→17:44)
[2023-04-04] MEDS: APIXABAN 5 MG TABLET PO ×2 (08:52→21:32)
[2023-04-04] MEDS: AMIODARONE HCL 200 MG TABLET 400 MG PO (08:52)
[2023-04-04] MEDS: ACETAMINOPHEN 325 MG TABLET 650 MG PO (08:53)
--- NOTE | 2023-04-04 15:11 | PC.NURSE ---
Spoke with Dr De Leon regarding patient discharge transportation plan. Pt and state they have four current ambulance bills that insurance won't pay because they did not qualify for emergency. So, we discharge via [facility] bus. They were agreeable to this. [facility] is scheduled for 1415 tomorrow.
--- NOTE | 2023-04-04 15:32 | PM.IMPN ---
Progress Note: A&P Assessment and Plan (1) Hepatic encephalopathy: Code(s): K76.82 - Hepatic encephalopathy Status: Acute Assessment and Plan: Patient presented ED with confusion and found to have hepatic encephalopathy CT head shows no acute intracranial issues. Ammonia level elevated to 108 Suspected hepatic encephalopathy superimposed was electrolyte disorder, dehydration On lactulose and rifaximin added Confusion resolved Titrate lactulose to get 2-3 bowel movement every day Having BMs. Continue to monitor. (2) Discitis of lumbar region: Code(s): M46.46 - Discitis, unspecified, lumbar region Status: Acute Assessment and Plan: On imaging. radiologist reports prominent irregularity and sclerosis of the apposing vertebral endplates at L3-4; consider discitis, osteomyelitis Lumbar MRI ordered but patient cannot have MRI here because of metal clips Neurosurgeon consulted and appreciate their input. They recommend patient be transferred to tertiary hospital for further evaluation and treatment Repeat CT lumbar spine showing similar findings He was feeling weaker and subtle change in the left leg. Repeat BCx NGTD Echo - EF 70%, Grade 2 diastolic dysfunction, mild aortic stenosis. mild TR and moderate pulm HTN Consider starting abx but would benefit to have tissue diagnosis. Patient accepted at [facility] and awaiting bed placement We have made an arrangement for patient to follow up with his Neurosurgeon. Patient understands the risk of mot being transferred to [place] including , permanent paralysis and sepsis. Possible discharge home once [facility] bus arranged. (3) Acute kidney injury superimposed on chronic kidney disease: Code(s): N17.9 - Acute kidney failure, unspecified; N18.9 - Chronic kidney disease, unspecified Status: Acute Assessment and Plan: EMMY with Cr at 3.2. Patient with CKD with baseline Cr running 1.3-1.4.? Sodium bicarbonate added It Generalist consulted and appreciate their input Renal US showing 6mm stone lower pole left kidney without hydronephrosis. Cr 1.4 today Diuretics on hold; was on Bumex 2 mg b.i.d and Spironolactone Edema mild. Edema was asymmetric but doppler negative for DVT Resumed Bumex at half dose with good results (4) Hyperammonemia: Code(s): E72.20 - Disorder of urea cycle metabolism, unspecified Status: Acute Assessment and Plan: Related to cirrhosis (5) Cirrhosis: Qualifiers: Ascites presence: without ascites Hepatic cirrhosis type: unspecified hepatic cirrhosis Qualified Code(s): K74.60 - Unspecified cirrhosis of liver Code(s): K74.60 - Unspecified cirrhosis of liver Status: Acute Assessment and Plan: 2nd to CRAWLEY (6) Atrial fibrillation: Qualifiers: Atrial fibrillation type: paroxysmal Qualified Code(s): I48.0 - Paroxysmal atrial fibrillation Code(s): I48.91 - Unspecified atrial fibrillation Status: Acute Assessment and Plan: EKG on admission showing NSR with first degree AVB, delayed tranition and ST-T wave changes in the high lateral leads. Metoprolol continued Eliquis continued. Plan Abnormal CT finding - CT abdomen showed??4.1 x 7 cm left inguinal soft tissue mass; differential diagnosis includes lymphadenopathy, metastasis, hematoma or pseudoaneurysm.?General surgeon considers the inguinal mass likely hematoma. Plan for patient to follow-up with Dr. Ireland in the office 1 month after discharge. History of aortic valve replacement - stable. check Echo GERD - Continue PPI SAIGE? - appears bipap never ordered on admission. Will order BiPAP today Chronic anemia - no signs of bleeding. No schistocytes. Irons studies consistent with anemia of chronic dz. Continue to monitor. Thrombocytopenia - chronic likely related to underlying cirrhosis. DVT prophylaxis - Eliquis Code status - full Subjective Date/time seen: 04/04/23 15
[2023-04-05] MEDS: LACTULOSE 20 GM/30 ML UDC 30 GM PO ×3 (00:30→12:00)
[2023-04-05 04:52] VITALS: BP 94/50; PULSE 51; RESP 20; TEMP 36.4; O2SAT 98
[2023-04-05 08:28] VITALS: O2SAT 98
[2023-04-05 09:40] VITALS: BP 100/50
[2023-04-05] MEDS: ASPIRIN 81 MG CHEWABLE TABLET PO (09:40)
[2023-04-05] MEDS: SODIUM BICARBONATE TAB 650 MG TABLET PO (09:40)
[2023-04-05] MEDS: PANTOPRAZOLE 40 MG TABLET PO (09:40)
[2023-04-05] MEDS: rifAXIMin 550 MG TABLET PO (09:40)
[2023-04-05] MEDS: APIXABAN 5 MG TABLET PO (09:40)
[2023-04-05] MEDS: FERROUS SULFATE 325 MG TABLET DR PO (09:40)
[2023-04-05] MEDS: SIMETHICONE 80 MG TAB.CHEW PO (09:40)
--- NOTE | 2023-04-05 09:50 | PM.DS ---
DS: Admitting Diagnosis Discharge Date 04/05/23 Admitting Diagnosis Altered mental status DS: Discharge Diagnosis Discharge Diagnosis (1) Hepatic encephalopathy: Code(s): K76.82 - Hepatic encephalopathy Status: Acute (2) Discitis of lumbar region: Code(s): M46.46 - Discitis, unspecified, lumbar region Status: Acute (3) Acute kidney injury superimposed on chronic kidney disease: Code(s): N17.9 - Acute kidney failure, unspecified; N18.9 - Chronic kidney disease, unspecified Status: Acute (4) Hyperammonemia: Code(s): E72.20 - Disorder of urea cycle metabolism, unspecified Status: Acute (5) Cirrhosis: Qualifiers: Hepatic cirrhosis type: unspecified hepatic cirrhosis Ascites presence: without ascites Qualified Code(s): K74.60 - Unspecified cirrhosis of liver Code(s): K74.60 - Unspecified cirrhosis of liver Status: Acute (6) Atrial fibrillation: Qualifiers: Atrial fibrillation type: paroxysmal Qualified Code(s): I48.0 - Paroxysmal atrial fibrillation Code(s): I48.91 - Unspecified atrial fibrillation Status: Acute DS: Summary Hospital Course Reason for hospitalization: 52yo male with cirrhosis, CKD and pAFib here for altered mental status. Please see H&P for details. Hospital Course: Patient presented to the ED with confusion and found to have hepatic encephalopathy. CT head showed no acute intracranial issues. Ammonia level was elevated to 108. Also with EMMY with Cr at 3.2. Patient with CKD with baseline Cr running 1.3-1.4.?Software Support Technician consulted and appreciate their input. Sodium bicarbonate added for low serum bicarb. Renal US showing 6mm stone lower pole left kidney without hydronephrosis. Cr returned to baseline. Diuretics were on hold; was on Bumex 2 mg BID and Spironolactone 25mg BID. He developed mild edema. Edema was asymmetric but doppler negative for DVT. Resumed Bumex at half dose with good results. He was continued on lactulose and dose advanced. Rifaximin added. His confusion resolved. Patient has paroxysmal atrial fibrillation. EKG on admission showing NSR with first degree AVB, delayed transition and ST-T wave changes in the high lateral leads. Metoprolol and Eliquis was continued. CT abdomen showed??4.1 x 7 cm left inguinal soft tissue mass; differential diagnosis includes lymphadenopathy, metastasis, hematoma or pseudoaneurysm.?General surgeon considers the inguinal mass likely hematoma. Plan for patient to follow-up with Dr. Ireland in the office 1 month after discharge. He has a history of aortic valve replacement. Echo - EF 70%, Grade 2 diastolic dysfunction, mild aortic stenosis. mild TR and moderate pulm HTN. He had chronic anemia but no signs of bleeding. No schistocytes. Irons studies consistent with anemia of chronic dz. Also with thrombocytopenia felt to be chronic likely related to underlying cirrhosis. On imaging. radiologist reported prominent irregularity and sclerosis of the apposing vertebral endplates at L3-4; consider discitis and osteomyelitis. Lumbar MRI ordered but patient cannot have MRI here because of metal clips. Neurosurgeon consulted and appreciate their input. They recommend patient be transferred to tertiary care hospital for further evaluation and treatment. Repeat CT lumbar spine showing similar findings. BCx negative. BCx repeated and have remained negative. He was not treated with abx. CRP was 3.5 but dropped to <0.5. Procalcitonin was 0.1. Patient was accepted at [facility] but no bed available for many, many days. Patient was frustrated at the delay. Care coordination contacted the patient's neurosurgeon and arrangements were made for patient to follow up with his Neurosurgeon on 04/15/23. Options discussed with patient about discharge and close follow-up vs continued hospitalization with hopes to transfer to [place] soon. Patient understands the risk of not being transferred to [place] including
[2023-04-05 10:10] VITALS: PULSE 64
[2023-04-05] MEDS: METOPROLOL TARTRATE 25 MG TABLET PO (10:10)
[2023-04-05] MEDS: AMIODARONE HCL 200 MG TABLET 400 MG PO (10:10)
--- NOTE | 2023-04-14 14:12 | PC.NURSE ---
Blood cultures are negative. Dr. Haley novak.
== END 2023-04-05 14:15 | disposition home health service (06) | DRG 442 ==
LOC: ANHED 13:39 → ANH2MED 18:42
PROVIDERS: Family Medicine; Hospitalist; Internal Medicine; Internal Medicine Nephrology; Neurological Surgery; Nurse Practitioner Family; Admitting Provider Internal Medicine; Emergency Provider Emergency Medicine; PCP Family Medicine; Visit Provider Internal Medicine
DX: K76.82 Hepatic encephalopathy (principal); E72.20 Disorder of urea cycle metabolism, unspecified; N17.9 Acute kidney failure, unspecified; E87.1 Hypo-osmolality and hyponatremia; K74.60 Unspecified cirrhosis of liver; K75.81 Nonalcoholic steatohepatitis (NASH); I12.9 Hypertensive chronic kidney disease with stage 1 through stage 4 chronic kidney disease, or unspecified chronic kidney disease; N18.30 Chronic kidney disease, stage 3 unspecified; M46.46 Discitis, unspecified, lumbar region; I48.0 Paroxysmal atrial fibrillation; D63.8 Anemia in other chronic diseases classified elsewhere; E86.0 Dehydration; K21.9 Gastro-esophageal reflux disease without esophagitis; E66.01 Morbid (severe) obesity due to excess calories; G47.33 Obstructive sleep apnea (adult) (pediatric); R19.09 Other intra-abdominal and pelvic swelling, mass and lump; D69.59 Other secondary thrombocytopenia; Z20.822 Contact with and (suspected) exposure to COVID-19; Z68.38 Body mass index [BMI] 38.0-38.9, adult; Z95.2 Presence of prosthetic heart valve; Z79.82 Long term (current) use of aspirin; Z90.49 Acquired absence of other specified parts of digestive tract; Z79.01 Long term (current) use of anticoagulants
CPT/HCPCS: 36415; 70450; 72132; 74176; 76775; 76882; 80048; 80053; 80069; 81001; 81050; 82140; 82550; 82570; 82607; 82728; 82746; 82948; 83540; 83550; 83605; 83735; 84100; 84145; 84156; 84300; 84443; 84540; 85025; 85027; 85055; 85610; 85652; 85730; 85999; 86140; 87040; 87636; 87637; 93005; 93306; 93970; 96360; 96361; 97110; 97162; 97166; 97530; 97535; 99285; A9270; G0378; J7030; Q9967

== ENCOUNTER 2023-05-29 11:42 | Outpatient (CLI) | payer OTHER, SELFPAY ==
--- NOTE | ~2023-05-29 | XR_ITS ---
XR knee LT 3V 05/29/2023 12:55 Indication: Left knee pain Procedure: 4 views left knee Comparison: 07/16/2022 Findings: There is severe osteoarthritis of the left knee. No fracture or traumatic malalignment. Sma ll joint effusion. No foreign bodies. Osteopenia. Impression: 1: Severe tricompartment osteoarthritis of the left knee. 2: Small joint effusion. Reviewed, dictated and finalized at location B. Impression: 1: Severe tricompartment osteoarthritis of the left knee. 2: Small joint effusion.
== END 2023-05-29 11:43 ==
LOC: MICIMG 11:43
PROVIDERS: PCP Orthopaedic Surgery; Visit Provider Physician Assistant Medical
DX: M25.462 Effusion, left knee (principal); M17.12 Unilateral primary osteoarthritis, left knee
CPT/HCPCS: 73562

== ENCOUNTER 2023-09-18 13:05 | Outpatient (CLI) | payer OTHER, SELFPAY ==
--- NOTE | ~2023-09-18 | US_ITS ---
EXAMINATION: US soft tissue groin LT DATE: 09/18/2023 13:21 INDICATION: Left inguinal mass TECHNIQUE: Multiple grayscale and Doppler ultrasound images of the left inguinal region of concern we re obtained. COMPARISON: CT dated 03/18/2023 FINDINGS: There is a 5.4 x 3.6 x 2.3 cm ovoid mass which is predominantly hypoechoic with eccentric thickened b and of increased echogenicity. This corresponds to a heterogeneous mass with some surrounding strandi ng which measured 9.4 x 7.2 x 4.2 cm at the time of the prior CT. IMPRESSION: 1. Interval decrease in size of a now 5.4 x 3.6 x 2.3 cm subcutaneous mass at the region of concern. Differential would include a still abnormally enlarged lymph node or resolving hematoma. The decrease in size in the absence of interval treatment would argue against but would not not completely exclud e malignancy such as in the setting of prior superimposed hemorrhage. Correlate with clinical history and could consider either continued follow-up with repeat imaging or ultrasound guided core needle b iopsy. Reviewed, dictated and finalized at location A. IMPRESSION: 1. Interval decrease in size of a now 5.4 x 3.6 x 2.3 cm subcutaneous mass at t he region of concern. Differential would include a still abnormally enlarged ly mph node or resolving hematoma. The decrease in size in the absence of interval treatment would argue against but would not not completely exclude malignancy such as in the setting of prior superimposed hemorrhage. Correlate with clinica l history and could consider either continued follow-up with repeat imaging or ultrasound guided core needle biopsy.
== END 2023-09-18 13:06 ==
LOC: MICIMG 13:05
PROVIDERS: PCP Family Medicine; Visit Provider Surgery
DX: R19.09 Other intra-abdominal and pelvic swelling, mass and lump (principal)
CPT/HCPCS: 76882

== ENCOUNTER 2024-04-15 08:00 | Outpatient (CLI) | payer OTHER, SELFPAY ==
--- NOTE | ~2024-04-15 | US_ITS ---
EXAMINATION: US right upper quadrant DATE: 04/15/2024 08:31 INDICATION: Cirrhosis of the liver. TECHNIQUE: Multiple grayscale and Doppler ultrasound images of the abdomen were obtained. COMPARISON: CT abdomen and pelvis 03/18/23 FINDINGS: Sensitivity is decreased by obesity. The visualized portions of the head, body, and tail of the pancreas are normal. The liver demonstrates surface nodularity, consistent with cirrhosis. There is normal flow in main portal vein. The gallbladder is absent. The common duct is normal and measure s 4 mm. IMPRESSION: 1. Cirrhosis of the liver. Reviewed, dictated and finalized at location A. LANE PILOT CROP DUSTING IMPRESSION: 1. Cirrhosis of the liver.
== END 2024-04-15 08:01 | disposition home or self-care (01) ==
PROVIDERS: PCP Family Medicine; Visit Provider Internal Medicine Gastroenterology
DX: K74.60 Unspecified cirrhosis of liver (principal)
CPT/HCPCS: 76705

== ENCOUNTER 2024-08-01 14:34 | Outpatient (CLI) | payer OTHER, SELFPAY ==
--- NOTE | ~2024-08-01 | XR_ITS ---
XR knee LT min 4V 08/01/2024 14:51 Indication: Left knee pain. Bursitis. Procedure: 4 views left knee Comparison: 05/29/2023 Findings: There is severe tricompartment osteoarthritis of the left knee. No fracture or traumatic ma lalignment. There is moderate joint effusion. No foreign bodies. Impression: 1: Severe tricompartment osteoarthritis of the left knee. Reviewed, dictated and finalized at location A. Impression: 1: Severe tricompartment osteoarthritis of the left knee.
== END 2024-08-01 14:35 | disposition home or self-care (01) ==
LOC: MICIMG 14:36
PROVIDERS: PCP Family Medicine; Visit Provider Nurse Practitioner Family
DX: M17.12 Unilateral primary osteoarthritis, left knee (principal); M70.52 Other bursitis of knee, left knee
CPT/HCPCS: 73564

== ENCOUNTER 2024-08-29 16:15 | Outpatient (RCR) | payer OTHER, SELFPAY ==
[2024-05-06 15:52] VITALS: PULSE 70
[2024-07-13 16:39] LABS: Glucose Point of Care 101 mg/dl (65-105)
== END 2024-08-29 23:59 | disposition home or self-care (01) ==
LOC: ANHCPREHAB 16:15
PROVIDERS: PCP Family Medicine; Visit Provider Internal Medicine
DX: Z95.2 Presence of prosthetic heart valve (principal)
CPT/HCPCS: 93798

== ENCOUNTER 2024-12-09 11:49 | Outpatient (CLI) | payer OTHER, SELFPAY ==
--- NOTE | ~2024-12-09 | US_ITS ---
ULTRASOUND ABDOMEN LIMITED (RIGHT UPPER QUADRANT) Clinical History: Unspecified cirrhosis of liver Comparison: CT abdomen and pelvis 03/18/2023 Technique: Right upper quadrant sonography Findings: Liver: Nodular surface. Poorly seen. Heterogeneous echotexture. No intrahepatic biliary ductal dilatation. Normal hepatopedal flow main portal vein. No discrete hepatic mass noted. Common Duct: Normal caliber. 4 mm. Gallbladder: Removed. Pancreas: Mostly obscured by bowel gas. No ascites. IMPRESSION: 1. No acute findings. Reviewed, dictated and finalized at location R. IMPRESSION: 1. No acute findings.
== END 2024-12-09 11:50 | disposition home or self-care (01) ==
PROVIDERS: PCP Family Medicine; Visit Provider Internal Medicine Gastroenterology
DX: K74.60 Unspecified cirrhosis of liver (principal); K76.0 Fatty (change of) liver, not elsewhere classified
CPT/HCPCS: 76705